=== PATIENT | male | born 1940 ===

== ENCOUNTER 2023-02-06 15:57 | Inpatient (IN) | payer OTHER, BC ==
--- OUTSIDE RECORDS SUMMARY | 2023-02-06 16:13 | XMS REPORT | Continuity of Care Document ---
:[address] [facility] t Address [address] [place] [address]. [address] [place] [address] Care Team Providers Name Role Phone [id number] Primary Care Physician Unavailable Wilmer HOOK, Candis Attending Clinician Unavailable Jie CALHOUN, Ya Thomason Attending Clinician [phone] [email or web address] Attending Clinician Unavailable Kamron Cormier MA Attending Clinician Unavailable Kurt Polanco Attending Clinician Mariela Abbott Attending Clinician Unavailable Aquiles CALHOUN, Carmen Kent Attending Clinician Elie DODD, Tanisha Attending Clinician Unavailable Clotilde WINN MD, Que Aj Attending Clinician Brody [facility], Ralph Attending Clinician Unavailable Saint Jd CALHOUN, Gaetano Graham Attending Clinician Juan CALHOUN, Jakub Sosa Attending Clinician Mario Alberto CALHOUN, Jeannette Attending Clinician Roshni CALHOUN, Jared Cruz Attending Clinician Ayana CALHOUN, Sonja Monsivais Attending Clinician [phone] Aliyah CALHOUN, Tara Eldridge Attending Clinician [phone] Suzan CALHOUN, Brandi Attending Clinician Lucero CALHOUN, Aquiles Hernandez Attending Clinician [phone] Jimy DODD, Kat Attending Clinician Unavailable Yoni CALHOUN, Tim Attending Clinician Amada CALHOUN, Luz Marina Attending Clinician Andreas Zavala MD Attending Clinician Arielle Bingham Attending Clinician Unavailable Simón Cisneros Attending Clinician Unavailable Ayush CALHOUN, Ratna Romero Attending Clinician [phone] Malick Patel MD Attending Clinician JAI CARROLL Attending Clinician Unavailable GENOVEVA YEH Attending Clinician Unavailable MD JAI CARROLL Attending Clinician Unavailable _[facility]_I Admitting Clinician Unavailable JEANNETTE LLANES Admitting Clinician Unavailable ANDREAS ZAVALA Admitting Clinician Unavailable MALICK PATEL Admitting Clinician Unavailable JAI CARROLL Admitting Clinician Unavailable MD JAI CARROLL Admitting Clinician Unavailable Payers Payer Name Policy Type Policy Number Effective Date Expiration Date S ource [place] [id number] 2009 00:00:00 MEDICARE PART A [id number] 2006 AND B 00:00:00 [place]: [id number] 2006 NOVSnapciousS Personalis 00:00:00 [place] [id number] [place] (MEDICARE 00:00:00 SUPPLEMENT) Problems Condition Condition Condition Status Onset Resolution Last Treating Co mments Source Name Details Category Date Date Treatment Clinician Date 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 00:00: Hospit a on right on right 00 l Lesion of Lesion of Disease Active Met [facility]odi right right 02-05 ulnar ulnar 00:00: Hospita nerve nerve 00 l Elevated Elevated Disease Active Metho di alkaline alkaline 2 phosphatas phosphatas 00:00: Ho spita e level e level 00 l 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 anemia 08-27 00:00: Hospita 00 l Acute on Acute on Disease Active Metho di chronic chronic 2-20 st systolic systolic 00:00: Hospit a congestive congestive 00 l heart heart failure failure Neuropathi Neuropathi Disease Active 2021-07 M ethodi c ulcer of c ulcer of 0-26 st left heel left heel 00:00: [facility] 00 l Neuropathi Neuropathi Disease Active 2021-07 M ethodi c ulcer of c ulcer of 0-26 st right right 00:00: Hospita heel, with heel, with 00 l unspecifie unspecifie d severity d severity A-fib A-fib Disease Active 2021-07 Methodi 0-10 st 00:00: Hospita 00 l Physical Physical Disease Active 2021-07 Metho di deconditio deconditio 0-10 st carey carye 00:00: Hospita 00 l Diabetic Diabetic Disease Active 2021-07 Metho di foot foot 0-09 st infection infection 00:00: [facility] 00 l Scrotal Scrotal Disease Active Methodi swelling swelling 911 st 00:00: Hospita 00 l Angina of Angina of Disease Active Met hodi effort effort 606 st 00:00: Hospita 00 l Elevated Elevated Disease Active Metho di LFTs LFTs 08-06 st 00:00: Hospita 00 l B12 B12 Disease Active Methodi deficiency deficiency 08-06 st 00:00: Hospita 00 l Generalize Generalize Disease Active M ethodi d d 6 st abdominal abdominal 00:00: [facility] pain pain 00 l Cortical Cortical Disease Active Overview: Oh anum age-relate age-relate [address] d cataract d cataract 00:00: g of this Hospita of both of both 00 note l eyes eyes might be different from the original. 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 00:00: Hospit a spine spine 00 l without without myelopathy myelopathy Chronic Chronic Disease Active Methodi inflammato inflammato 2 ry ry 00:00: Hospita demyelinat demyelinat 00 l ing ing polyneurit polyneurit is is Diabetic Diabetic Disease Active Metho di polyneurop polyneurop 2 athy athy 00:00: Hospita 00 l Peripheral Peripheral Disease Active 0 M ethodi neuropathy neuropathy 08-18 00:00: Hospita 00 l 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 08-18 e e 00:00: Hospita polyneurop polyneurop 00 l athy athy Idiopathic 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 2 osteoarthr osteoarthr 00:00: Ho spita opathy opathy 00 l Low back Low back Disease Active Metho di pain pain 08-18 00:00: Hospita 00 l 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 00:00: Hospit a with with 00 l neurologic neurologic al al manifestat manifestat ions ions Osteoarthr Osteoarthr Disease Active M ethodi itis of itis of 2 knee knee 00:00: Hospita 00 l Neuropathy Neuropathy Disease Active M ethodi , toxic , toxic 08-18 00:00: Hospita 00 l 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 Uses a CPAP Allergies, Adverse Reactions, Alerts Allergy Allergy Status Severity Reaction(s) Onset Inactive Treating Comm ents Source Name Type Date Date Clinician Latex Propensi Active Other (See Breaks Meth beata ty to Comments) 6- out st adverse 00:00: Hospita reaction 00 l s to drug NEOMYCIN DRUG Active Other MD NguyenBACITRA 3-25 Anderso CNZN-KAE 00:00: n YMYXNB 00 Neomycin Propensi Active Rash Method i -Bacitra ty to 08-18 st evan-Poly adverse 00:00: Hospita myxin reaction 00 l s to drug NEOMYCIN DRUG Active Med Other MD NguyenBACITRA 2-12 Anderso EVAN-POLY 00:00: n MYXIN 00 Family History Family Member Diagnosis Comments Start Date Stop Date Source Natural father Alcohol abuse [facility] Natural father Cancer [facility] Natural father Lung cancer [facility] Natural mother Cancer [facility] Natural mother Diabetes [facility] mother Heart failure [facility] Social History Social Habit Start Date Stop Date Quantity Comments Source Gender identity 2018-11-01 Identifies as Method ist 19:52:04 male gender [facility] (finding) Sexual orientation [facility] History of tobacco Current smoker [facility] use [facility] History of Social 2023-01-30 2023-01-[address] function 00:00:00 00:00:00 Hospital Alcohol intake 2023-01-30 2023-01-30 Current drinker [facility] dist 00:00:00 00:00:00 of alcohol Hospital (finding) Tobacco Comment 2022-04-25 2022-04-25 off/on [facility] 00:00:00 00:00:00 Hospital Cigarettes smoked 2022-04-25 2022-04-[address] current (pack per 00:00:00 00:00:00 Hospita l day) - Reported Cigarette 2022-04-25 2022-04-25 [facility] pack-years 00:00:00 00:00:00 Hospital Tobacco use and 2022-04-25 2022-04-25 Smokeless tobacco [facility] exposure 00:00:00 00:00:00 non-user Hospital Alcohol Comment 2016-05-27 2016-05-27 very little Methodis t 00:00:00 00:00:00 Hospital Sex Ass[birth year] At [birth year] M [facility] 00:00:00 00:00:00 Hospital Smoking Status Start Date Stop Date Source Ex-smoker 2022-04-25 00:00:00 2022-04-25 00:00:00 [facility] Hospital Medications Ordered Filled Start Stop Current Ordering Indication Dosage Frequency Signature Comments Components Source Medication Medication Date Date Medication? Clinician (SIG) Name Name clopidogreL Yes 75mg QD Take 1 Meth beata (PLAVIX) 75 5-09 tablet (75 st mg tablet 15:03: mg total) Hos mylene 01 by mouth l daily. aspirin Yes 81mg QD Take 1 Methodi (ECOTRIN) 5-09 tablet (81 st 81 MG 15:03: mg total) Hospita enteric 01 by mouth l coated daily. tablet loratadine- 2022- No 1{tbl} Q24H Take 1 M ethodi pseudoepHED 10-[address] rine 11:31: 00:00 mouth Hospita (Claritin-D 58 :00 daily as l 12 Hour) needed. 5-120 mg tablet extended release 12 hr cyanocobala Yes 1000ug Q30D Inject 1 Methodi min 1,000 4-21 mL (1,000 st mcg/mL 00:00: mcg total) Hospi ta injection 00 into the l shoulder, thigh, or buttocks every 30 (thirty) days. fluorouraci 2022- No Q.5D Apply 1 Me thodi L (EFUDEX) 09-[address] 5 % cream 00:00: 00:00 n. Hospita 00 :00 topically l 2 (two) times a day. For 2 weeks - do not use on tumor expected redness & irritation ciprofloxac 2022- No 500mg Q.5D Take 1 Me thodi in (CIPRO) 09-[address] 500 MG 00:00: 00:00 (500 mg Hospita tablet 00 :00 total) by l mouth 2 (two) times a day with meals. metFORMIN 2023- No [id number] 500mg QD Take 1 Methodi XR 09-09-[address] (GLUCOPHAGE 00:00: 05:59 (500 mg Ho spita -XR) 500 mg 00 :00 total) by l 24 hr mouth tablet daily with breakfast. empaglifloz 2023- No [id number] 25mg QD Take 1 Methodi in 25 mg 09-09 tablet (25 st tablet 00:00: 05:59 mg total) Hospi ta 00 :00 by mouth l daily. metFORMIN 2022- No 1000mg QD Take 1 Met hodi (GLUCOPHAGE 09-[address] ) 1,000 mg 15:00: 00:00 (1,000 mg H ospita tablet 26 :00 total) by l mouth daily with breakfast. metFORMIN 2022- No [id number] 1000mg QD Take 1 Methodi (GLUCOPHAGE 09-[address] ) 1,000 mg 00:00: 00:00 (1,000 mg H ospita tablet 00 :00 total) by l mouth daily with breakfast for 180 days. spironolact 2023- No 50mg QD Take 1 Met hodi one 09-04 tablet (50 st (ALDACTONE) 00:00: 05:59 mg total) Hospita 50 MG 00 :00 by mouth l tablet daily. valsartan 2023- No 160mg QD Take 1 Meth beata (DIOVAN) 09-[address] 160 MG 00:00: 05:59 (160 mg Hospita tablet 00 :00 total) by l mouth daily. levoFLOXaci 2022- No 500mg QD Take 1 Me thodi n 09-[address] (Levaquin) 00:00: 05:59 (500 mg Hos mylene 500 MG 00 :00 total) by l tablet mouth daily for 3 days. torsemide 2023- No 20mg Q.5D Take 1 Metho di (DEMADEX) 09-03 tablet (20 st 20 MG 00:00: 05:59 mg total) Hospit a tablet 00 :00 by mouth 2 l (two) times a day. sildenafil, 2023- No 20mg Q.5D Take 1 Met hodi for 09-03 tablet (20 st pulmonary 00:00: 05:59 mg total) Ho spita hypertensio 00 :00 by mouth 2 l n, (two) (REVATIO) times a 20 mg day. tablet metoprolol 2023- No 25mg Q.5D Take 1 Meth beata succinate 09-03 tablet (25 st XL 00:00: 05:59 mg total) Hospita (TOPROL-XL) 00 :00 by mouth 2 l 25 mg 24 hr (two) tablet times a day. nystatin 2022- No Q.5D Apply Methodi (MYCOSTATIN 09-[address] ) 100,000 00:00: 00:00 2 (two) [facility]osp [facility] unit/gram 00 :00 times a l powder day. loratadine 2022- No 10mg QD Take 10 mg Methodi (CLARITIN) 08-[address] 10 mg 11:34: 00:00 daily. Hospita tablet 22 :00 l multivitami 2022- No 1{capsu QD Take 1 Methodi n capsule 08-29 le} capsule by st 11:34: 00:00 mouth Hospita 11 :00 daily. l rosuvastati Yes Method i n (CRESTOR) 08-19 st 10 mg 00:00: Hospita tablet 00 l gentamicin 2022- No Q.5D Apply 1 Met hodi (GARAMYCIN) 08-19 applicatio s t 0.1 % 00:00: 00:00 n. Hospita ointment 00 :00 topically l 2 (two) times a day. Mix with Naftin - apply to affected area on the foot twice daily x 2 weeks ketoconazol Yes QD Apply 1 Met hodi e (NIZORAL) 07-[address] 2 % cream 00:00: n Hospita 00 topically l daily. Apply to left foot terbinafine 2022- No 250mg QD Take 1 Me thodi HCL 07-[address] (LamiSIL) 00:00: 00:00 (250 mg [facility] 250 mg 00 :00 total) by l tablet mouth daily. mupirocin 2022- No QD Apply 1 Meth beata (BACTROBAN) 07-25 applicatio s t 2 % 00:00: 00:00 n Hospita ointment 00 :00 topically l daily. Left foot levoFLOXaci 2022- No 750mg QD Take 1.5 Methodi n 07-[address] (Levaquin) 00:00: 00:00 (750 mg Hos mylene 500 MG 00 :00 total) by l tablet mouth daily. clindamycin 2022- No 150mg Q.[id number] Take 1 Methodi (Cleocin 07-17 [id number] capsule s t HCL) 150 MG 00:00: 05:59 3D (150 mg Ho spita capsule 00 :00 total) by l mouth 3 (three) times a day for 3 days. metoprolol 2021-07- No Q.5D Take by Met hodi succinate 08-[address] XL 00:00: 00:00 (two) Hospita (TOPROL-XL) 00 :00 times a l 50 mg 24 hr day. tablet tamsulosin 2021-07 Yes .4mg QD Take 1 Metho di (FLOMAX) 0-[address] 0.4 mg 00:00: (0.4 mg Hospita capsule 00 total) by l mouth every evening. furosemide 2021-07- No 40mg Q.5D Take 1 Meth beata (LASIX) 40 0-20 09-03 tablet (40 st mg tablet 00:00: 00:00 mg total) Ho spita 00 :00 by mouth 2 l (two) times a day. doxycycline 2021-07 No 100mg Q.5D Take 1 Me thodi (VIBRAMYCIN 0-15 10-[address] ) 100 MG 18:26: 00:00 (100 mg Hospi ta capsule 02 :00 total) by l mouth 2 (two) times a day. Starting 04/14 for 10 days. sulfamethox 2021-07- No 1{tbl} Q.5D Take 1 M ethodi azole-trime 0-15 10-[address] thoprim 18:26: 00:00 mouth 2 Hospit a (BACTRIM 02 :00 (two) l DS) 800-160 times a mg per day. tablet benzonatate 2021-07- No 200mg Take 2 Me thodi (TESSALON) 0-15 10-[address] 100 MG 18:26: 00:00 (200 mg Hospita capsule 02 :00 total) by l mouth as needed for cough. collagenase 2021-07- No QD Apply Meth beata (SANTYL) 0-15 11-[address] ointment 00:00: 05:59 daily for Hos mylene 00 :00 30 days. l simvastatin 2021-07 No 40mg QD Take 40 mg Methodi (ZOCOR) 40 0-14 10-[address] mg tablet 18:26: 00:00 nightly. Hos mylene 40 :00 l rosuvastati 2021-07 No 10mg QD Take 1 Met hodi n (CRESTOR) 0-14 11-14 tablet (10 s t 10 mg 00:00: 05:59 mg total) Hospit a tablet 00 :00 by mouth l nightly for 30 days. clotrimazol 2021-07 No Q.5D Apply Meth beata e 0-14 11-[address] (LOTRIMIN) 00:00: 05:59 2 (two) Hos mylene 1 % cream 00 :00 times a l day for 30 days. betamethaso 2021-07 No Q.5D Apply Meth beata ne 0-14 11-[address] dipropionat 00:00: 05:59 2 (two) Ho spita e 00 :00 times a l (DIPROLENE) day for 30 0.05 % days. cream benzonatate 2021-07 100mg Q.[id number] Take 1 Methodi (TESSALON) 0-14 - [id number] capsule st 100 MG 00:00: 04:59 3D (100 mg Hospita capsule 00 :00 total) by l mouth 3 (three) times a day as needed for cough for up to 10 days. ciprofloxac 2021-07 No 500mg Q.5D Take 1 Me thodi in (CIPRO) 0-14 10-[address] 500 MG 00:00: 00:00 (500 mg Hospita tablet 00 :00 total) by l mouth 2 (two) times a day for 6 days. sulfamethox 2021-07 No 1{tbl} Q.5D Take 1 M ethodi azole-trime 0-14 10-[address] thoprim 00:00: 04:59 mouth 2 Hospit a (BACTRIM 00 :00 (two) l DS) 800-160 times a mg per day for 6 tablet days. minocycline 2021-07- No 100mg Q12H Take 1 Me thodi (MINOCIN) 0-14 10-[address] 100 MG 00:00: 00:00 (100 mg Hospita capsule 00 :00 total) by l mouth every 12 (twelve) hours for 6 days. metFORMIN 2021- No 1000mg Q.5D Take 1 Met hodi (GLUCOPHAGE 03-27- tablet st ) 1,000 mg 00:00: 00:00 (1,000 mg H ospita tablet 00 :00 total) by l mouth 2 (two) times a day with meals. diclofenac 2021- No 50mg Q.5D Take 1 Meth beata (VOLTAREN) 03-25- tablet (50 st 50 MG EC 00:00: 00:00 mg total) Hos mylene tablet 00 :00 by mouth 2 l (two) times a day. PRN furosemide 2021- No 40mg QD Take 1 Meth beata (LASIX) 40 9-17 10-20 tablet (40 st mg tablet 00:00: 04:59 mg total) Ho spita 00 :00 by mouth l daily for 30 days. metoprolol 2021- No 25mg Q.5D Take 1 Meth beata succinate 9-17 10-20 tablet (25 st XL 00:00: 04:59 mg total) Hospita (TOPROL-XL) 00 :00 by mouth 2 l 25 mg 24 hr (two) tablet times a day for 30 days. spironolact 2021-2021- No 50mg QD Take 1 Met hodi one 9-17 10-20 tablet (50 st (ALDACTONE) 00:00: 04:59 mg total) Hospita 50 MG 00 :00 by mouth l tablet daily for 30 days. tamsulosin 2021- No .4mg QD Take 1 Meth beata (FLOMAX) 9-17 10-[address] 0.4 mg 00:00: 04:59 (0.4 mg Hospita capsule 00 :00 total) by l mouth daily with dinner for 30 days. collagenase QD Apply Meth beata (SANTYL) 03-[address] ointment 00:00: 00:00 daily for Hos mylene 00 :00 30 days. l furosemide No 40mg QD Take 1 Meth beata (Lasix) 40 03-13 tablet (40 st mg tablet 00:00: 00:00 mg total) Ho spita 00 :00 by mouth l daily. potassium No 20meq QD Take 1 Meth beata chloride 03-13 tablet (20 st (K-DUR) 20 00:00: 00:00 mEq total) Hospita MEQ CR 00 :00 by mouth l tablet daily. benzonatate as needed. Methodi (TESSALON) 09-27 st 200 MG 00:00: 00:00 Hospita capsule 00 :00 l NIFEdipine No 60mg QD Take 1 Meth beata ER 07-23 tablet (60 st (PROCARDIA- 00:00: 00:00 mg total) Hospita XL) 60 MG 00 :00 by mouth l 24 hr daily. tablet metoprolol TAKE 1 Meth beata succinate 07-23 TABLET(50 st XL 00:00: 00:00 MG) BY Hospita (TOPROL-XL) 00 :00 MOUTH l 50 mg 24 hr TWICE tablet DAILY cyanocobala 2019-07 INJECT Met hodi min 1,000 2-29 04-21 1,000MCG st mcg/mL 00:00: 00:00 IN THE Hospita injection 00 :00 MUSCLE l EVERY 30 DAYS Immunizations Ordered Immunization Filled Immunization Date Status Commen ts Source Name Name Tdap 2022-04-26 Completed [facility] 00:00:00 [facility] FLUZONE HIGH-DOSE PF 2022-04-19 Completed Meth odist 00:00:00 [facility] PFIZER COVID-19 MRNA 2021-06-19 Completed Meth odist VACCINATION 00:00:00 [facility] FLUZONE HIGH-DOSE PF 2021-04-05 Completed Meth odist 00:00:00 [facility] PFIZER COVID-19 MRNA 2020-08-18 Completed Meth odist VACCINATION 00:00:00 [facility] PFIZER COVID-19 MRNA 2020-07-28 Completed Meth odist VACCINATION 00:00:00 Hospital Zoster Vaccine 2020-06-23 Completed [facility] Recombinant 00:00:00 [facility] Zoster Vaccine 2020-04-21 Completed [facility] Recombinant 00:00:00 [facility] FLUZONE HIGH-DOSE PF 2020-04-17 Completed Meth odist 00:00:00 Hospital FLUZONE HIGH-DOSE PF 2019-04-07 Completed [facility] odist 00:00:00 Hospital Pneumococcal 2018-05-25 Completed [facility] Polysaccharide 00:00:00 Hospital FLUZONE HIGH-DOSE PF 2018-04-20 Completed Meth odist 00:00:00 Hospital FLUZONE HIGH-DOSE PF 2017-04-14 Completed Meth odist 00:00:00 Hospital FLUZONE HIGH-DOSE PF 2016-06-20 Completed Meth odist 00:00:00 Hospital Pneumococcal 2015-09-04 Completed [facility] Conjugate 13-Valent 00:00:00 Hospi hernando FLUZONE HIGH-DOSE PF 2015-05-03 Completed Meth odist 00:00:00 [facility] Influenza Trivalent 2013-05-10 Completed [facility] dist 00:00:00 Hospital Zoster 2011-07-08 Completed [facility] 00:00:00 Hospital Vital Signs Vital Name Observation Time Observation Value Comments Source Body height 2023-01-30 15:54:00 200.7 cm [facility] Body weight 2023-01-30 15:54:00 116 kg [facility] BMI 2023-01-30 15:54:00 28.81 kg/m2 [facility] Systolic blood 2022-11-12 20:00:00 91 mm[Hg] [facility] Hospital pressure Diastolic blood 2022-11-12 20:00:00 56 mm[Hg] [facility] Hospital pressure Heart rate 2022-11-12 20:00:00 53 /min [facility] Respiratory rate 2022-11-12 20:00:00 18 /min Meth odist [facility] Oxygen saturation in 2022-11-12 20:00:00 95 /min [facility] Arterial blood by Pulse oximetry Body temperature 2022-10-25 16:00:00 36.56 Elsy Meth odist [facility] Procedures Procedure Date / Time Performing Clinician Source Performed US ABDOMINAL WITH LIVER 2022-10-15 15:40:00 Carmen Kwan [facility] ELASTOGRAPHY HC DEBRID SUBQ TIS 2022-09-25 20:00[facility] 20SQCM OR< HC DEBRID SUBQ TIS 2022-09-18 19:30:00 Que Pascual [facility] 20SQCM OR< POC GLYCOSYLATED 2022-09-05 20:43[facility] (HGB A1C[facility] POC GLUCOSE 2022-09-03 13:38:00 Sonja Piña [facility] Loi CBC WITH PLATELET AND 2022-09-03 11:40:00 Barakat, [facility] DIFFERENTIAL COMPREHENSIVE METABOLIC 2022-09-03 11:40:00 Barakat, Jaredlove Cruz [facility] PANEL MAGNESIUM LEVEL 2022-09-03 11:40:00 Barakat, Jared [facility] ESTIMATED GFR 2022-09-03 11:40:00 Barakat, Jared [facility] POC GLUCOSE 2022-09-03 03:27:00 Barakat, Jared Anthony [facility] POC GLUCOSE 2022-09-02 23:56:00 Barakat, Jared Anthony [facility] POC GLUCOSE 2022-09-02 18:22:00 Barakat, Jared Anthony [facility] POC GLUCOSE 2022-09-02 13:18:00 Barakat, Jared [facility] CBC WITH PLATELET AND 2022-09-02 10:53:00 [facility]OL[facility] 2022-09-02 10:53:00 Barakat, Jared Anthony [facility] PANEL MAGNESIUM LEVEL 2022-09-02 10:53:00 Barakat, Jared Anthony [facility] ESTIMATED GFR 2022-09-02 10:53:00 Barakat, Jared [facility] POC GLUCOSE 2022-09-01 23:53:00 Barakat, Jared Anthony [facility] POC GLUCOSE 2022-09-01 18:00:00 Barakat, Jared [facility] POC GLUCOSE 2022-09-01 13:38:00 Barakat, Jared [facility] B NATRIURETIC PEPTIDE 2022-09-01 12:50:00 Barakat, [facility] CBC WITH PLATELET AND 2022-09-01 12:50:00 Barakat, [facility] DIFFERENTIAL COMPREHENSIVE METABOLIC 2022-09-01 12:50:00 Barakat, Jared [facility] PANEL ESTIMATED GFR 2022-09-01 12:50:00 Barakat, Jared [facility] MAGNESIUM LEVEL 2022-09-01 12:50:00 Barakat, Jared [facility] POC GLUCOSE 2022-09-01 02:52:00 Barakat, Jared [facility] POC GLUCOSE 2022-09-01 00:10:00 Barakat, Jared [facility] POC GLUCOSE 2022-08-31 18:34:00 Barakat, Jared [facility] POC GLUCOSE 2022-08-31 13:48:00 Barakat, Jared [facility] CBC WITH PLATELET AND 2022-08-31 10:33:00 Barakat, [facility] DIFFERENTIAL COMPREHENSIVE METABOLIC 2022-08-31 10:33:00 Barakat, Jared Cruz [facility] PANEL B NATRIURETIC PEPTIDE 2022-08-31 10:33:00 Barakat, [facility] ESTIMATED GFR 2022-08-31 10:33:00 Barakat, Jared [facility] POC GLUCOSE 2022-08-31 02:40:00 Barakat, Jared [facility] POC GLUCOSE 2022-08-30 18:31:00 Barakat, Jared [facility] POC GLUCOSE 2022-08-30 14:42:00 Barakat, Jared [facility] CBC WITH PLATELET AND 2022-08-30 10:52:00 Barakat, [facility] DIFFERENTIAL COMPREHENSIVE METABOLIC 2022-08-30 10:52:00 Barakat, Jared [facility] PANEL B NATRIURETIC PEPTIDE 2022-08-30 10:52:00 Barakat, [facility] ESTIMATED GFR 2022-08-30 10:52:00 Barakat, Jared [facility] ospital POC GLUCOSE 2022-08-30 03:01:00 Barakat, [facility] ospital POC GLUCOSE 2022-08-29 23:26:00 Barakat, [facility] ospital INFLUENZA ANTIGEN TEST, 2022-08-29 21:37:00 Barakat, Jared [facility] REFLEX NEGATIVE TO RPP RESPIRATORY PATHOGEN 2022-08-29 21:37:00 Barakat, [facility] PANEL WITH COVID-19 RT-PCR URINALYSIS SCREEN AND 2022-08-29 18:07:00 Barakat, [facility] MICROSCOPY, WITH REFLEX TO CULTURE BLOOD CULTURE, AEROBIC & 2022-08-29 18:06:00 [facility] ANAEROBIC URINE CULTURE 2022-08-29 17:48:00 [facility] POC GLUCOSE 2022-08-29 14:39:00 Barakat, [facility] ospital CBC WITH PLATELET AND 2022-08-29 10:17:00 Barakat [facility] DIFFERENTIAL COMPREHENSIVE METABOLIC 2022-08-29 10:17:00 BarakatJared hanna [facility] PANEL B NATRIURETIC PEPTIDE 2022-08-29 10:17:00 [place] [facility] MAGNESIUM LEVEL 2022-08-29 10:17:00 [facility] ESTIMATED GFR 2022-08-29 10:17:00 Barakat, Jared [facility] ospital POC GLUCOSE 2022-08-29 03:38:00 Barakat, [facility] ospital MAGNESIUM LEVEL 2022-08-29 00:03:00 [facility] US DUPLEX VENOUS LOWER 2022-08-28 18:00:[address] [place] [facility] EXTREMITY REFLUX BILATERAL CBC WITH PLATELET AND 2022-08-28 09:34:00 Barakat [facility] DIFFERENTIAL COMPREHENSIVE METABOLIC 2022-08-28 09:34:00 Jared Barakat [facility] PANEL ESTIMATED GFR 2022-08-28 09:34:00 Jared Barakat H ospital POC GLUCOSE 2022-08-27 18:29:00 Jared Barakat H ospital TTE COMPLETE, WO 2022-08-27 17:45:00 Richy Delgado [facility] CONTRAST, W DOPPLER ([id number]) POC GLUCOSE 2022-08-27 14:43:00 Jeannette Llanes spital RESPIRATORY PATHOGEN 2022-08-27 08:09:00 [facility] PANEL WITH COVID-19 RT-PCR TROPONIN T 2022-08-27 08:09:00 [facility] CBC WITH PLATELET AND 2022-08-27 08:09:00 Jeannette Llanes [facility] DIFFERENTIAL PROTHROMBIN TIME WITH INR 2022-08-27 08:09:00 Jeannette Llanes [facility] HEMOGLOBIN A1C 2022-08-27 08:09:00 Jeannette Llanes Ho spital LIPID PANEL 2022-08-27 08:09:00 Jeannette Llanes spital MAGNESIUM LEVEL 2022-08-27 08:09:00 Jeannette Llanes spital THYROID STIMULATING 2022-08-27 08:09:00 Rafatutjan [facility] HORMONE COMPREHENSIVE METABOLIC 2022-08-27 08:09:00 Jeannette Llanes [facility] PANEL ESTIMATED GFR 2022-08-27 08:09:00 Jeannette Llanes spital ECG ED PRELIMINARY 2022-08-27 07:05:51 [facility] INTERPRETATION CONSULT TO WOUND AND 2022-08-27 06:07:17 [facility] CONTINENCE NURSE COVID-19, INFLUENZA A&B, 2022-08-27 04:52:00 [facility] QUAL[facility] RT-PCR TROPONIN T 2022-08-27 04:52:00 [facility] CBC WITH PLATELET AND 2022-08-26 23:09:00 [facility] DIFFERENTIAL COMPREHENSIVE METABOLIC 2022-08-26 23:09:00 [facility] PANEL TROPONIN T 2022-08-26 23:09:00 [facility] B NATRIURETIC PEPTIDE 2022-08-26 23:09:00 [facility] PARTIAL THROMBOPLASTIN 2022-08-26 23:09:00 [facility] TIME (PTT) PROTHROMBIN TIME WITH INR 2022-08-26 23:09:00 [facility] ESTIMATED GFR 2022-08-26 23:09:00 Rehrer, [facility] XR CHEST 1 VW PORTABLE 2022-08-26 22:43:00 [facility] ECG 12-LEAD 2022-08-26 22:24:35 [facility] HC DEBRID SUBQ TIS 2022-07-31 21:00:00 [facility] 20SQCM OR< HC DEBRID SUBQ TIS 2022-07-17 20:30:00 [facility] 20SQCM OR< HC DEBRID SUBQ TIS 2022-07-10 21:00:00 [facility] 20SQCM OR< HC DEBRID SELECT 2022-07-10 21:00:00 [facility] 20SQCM OR < HC DEBRID SUBQ TIS 2022-06-26 20:30:00 [facility] 20SQCM OR< HC DEBRID SELECT 2022-06-12 20:30:00 [facility] 20SQCM OR < CBC WITH PLATELET AND 2022-05-28 17:07:00 [facility] DIFFERENTIAL COMPREHENSIVE METABOLIC 2022-05-28 17:07:00 Carmen Kwan [facility] PANEL BILIRUBIN DIRECT 2022-05-28 17:07:00 Carmen K[facility] HC DEBRID SUBQ TIS 1ST 2022-05-22 20:30:00 [facility] 20SQCM OR< SURGICAL PATHOLOGY 2022-05-22 17:50:00 [facility] REQUEST HC DEBRID SUBQ TIS 2022-05-15 20:30:00 [facility] 20SQCM OR< HC DEBRID SUB TISS EA 2022-05-15 20:30:00 [facility] ADDL 20SQCM PV PHYSIOLOGIC ARTERIAL 2022-05-07 16:32:40 [facility] LOWER EXTREMITY COMPLETE HC DEBRID SUBQ TIS 2022-05-01 20:15:00 [facility] 20SQCM OR< HC DEBRID SUB TISS EA 2022-05-01 20:15:00 [facility] ADDL 20SQCM HC DEBRID SELECT 2022-04-24 19:00:00 [facility] 20SQCM OR < HC DEBRID SELECT ADDL 2022-04-24 19:00:00 [facility] 20SQCM POC GLUCOSE 2022-04-19 16:33:00 Aquiles Barker POC GLUCOSE 2022-04-19 12:25:00 Aquiles Barker francisco javier Hernandez CBC WITH PLATELET AND 2022-04-19 08:51:00 Lucero [facility] DIFFERENTIAL David BASIC METABOLIC PANEL 2022-04-19 08:51:00 Lucero, [facility] David ESTIMATED GFR 2022-04-19 08:51:00 Aquiles Barker POC GLUCOSE 2022-04-19 01:45:00 Aquiles Barker POC GLUCOSE 2022-04-18 23:29:00 Aquiles Barker POC GLUCOSE 2022-04-18 22:39:00 Aquiles Barker DURABLE MEDICAL EQUIPMENT 2022-04-18 17:23:50 [facility] POC [facility]SE 2022-04-18 17:06:[address] [facility] POC GLUCOSE 2022-04-18 14:12:[address] [facility] MRI ANKLE WO CONTRAST 2022-04-18 12:53:00 Nadja [facility] RIGHT CBC WITH PLATELET AND 2022-04-18 09:58:00 Aquiles Barker [facility] BASIC METABOLIC PANEL 2022-04-18 09:58:[address] [facility] ESTIMATED GFR 2022-04-18 09:58:[address] [facility] POC GLUCOSE 2022-04-18 01:57:[address] [facility] US DUPLEX VENOUS LOWER 2022-04-17 22:55:00 Nadja [facility] EXTREMITY RIGHT VANCOMYCIN LEVEL, TROUGH 2022-04-17 21:41:00 Aquiles Barker [facility] POC GLUCOSE 2022-04-17 21:40:[address] [facility] POC GLUCOSE 2022-04-17 16:57:[address] [facility] POC GLUCOSE 2022-04-17 12:27:[address] [facility] HEMOGLOBIN A1C 2022-04-17 11:06:[address] [facility] CBC WITH PLATELET AND 2022-04-17 11:06:00 Aquiles Barker [facility] DIFFERENTIAL [place] BASIC METABOLIC PANEL 2022-04-17 11:06:[address] [facility] C-REACTIVE PROTEIN 2022-04-17 11:06:[address] [facility] SEDIMENTATION RATE 2022-04-17 11:06:[address] [facility] ESTIMATED GFR 2022-04-17 11:06:[address] [facility] POC GLUCOSE 2022-04-17 01:45:[address] [facility] POC GLUCOSE 2022-04-16 20:29:00 Aquiles Barker Jenaro mcintyre David POC GLUCOSE 2022-04-16 17:04:00 Lucero Aquiles [facility] francisco javier Hernandez CBC HEMOGRAM 2022-04-16 14:32:00 Aquiles Barker Annette Hernandez BASIC METABOLIC PANEL 2022-04-16 14:32:00 LuceroAquiles [facility] David ESTIMATED GFR 2022-04-16 14:32:00 [facility] 2022-04-16 13:32:00 Lucero, Aquiles [facility] POC GLU[facility]SE 2022-04-16 01:51:00 Lucero, Aquiles [facility] POC GLUCOSE 2022-04-15 16:57:00 Lucero, Aquiles [facility] BAS[facility] METABOLIC PANEL 2022-04-15 15:08:00 Lucero Aquiles [facility] David ESTIMATED GFR 2022-04-15 15:08:00 Aquiles [facility] POC GLUCOSE 2022-04-15 12:42:00 Lucero, Aquiles [facility] HEMOGLOBIN A1C 2022-04-15 10:18:00 Jeannette Llanes spital TROPONIN T 2022-04-15 02:08:00 Luz Marina Ybarra spital ECG ED PRELIMINARY 2022-04-14 23:32:45 [facility]-19 QUALITATIVE 2022-04-14 23:30:00 [facility] TROPONIN T 2022-04-14 23:30:00 Luz Marina Ybarra spital POC GLUCOSE 2022-04-14 23:24:00 Andreas Zavala spital XR FOOT 3+ VW RIGHT 2022-04-14 21:38:51 Luz Marina Ybarra [facility] ECG 12-LEAD 2022-04-14 19:34:43 Luz Marina Ybarra Ho spital COMPREHENSIVE METABOLIC 2022-04-14 19:29:00 Luz Marina Ybarra [facility] PANEL TROPONIN T 2022-04-14 19:29:00 Ybarra, [facility] B NATRIURETIC PEPTIDE 2022-04-14 19:29:00 [facility] PARTIAL THROMBOPLASTIN 2022-04-14 19:29:00 [facility] TIME (PTT) PROTHROMBIN TIME WITH INR 2022-04-14 19:29:00 [facility] ESTIMATED GFR 2022-04-14 19:29:00 Ybarra, [facility] spital SEDIMENTATION RATE 2022-04-14 19:29:00 [facility] C-REACTIVE PROTEIN 2022-04-14 19:29:00 [facility] BLOOD CULTURE, AEROBIC & 2022-04-14 19:29:00 [facility] ANAEROBIC CBC WITH PLATELET AND 2022-04-14 19:29:00 [facility] DIFFERENTIAL POC GLUCOSE 2022-03-23 17:08:00 Malick Patelist H ospital POC GLUCOSE 2022-03-23 12:51:00 Malick Patelist H ospital POC GLUCOSE 2022-03-22 23:12:00 Malick Patelist H ospital POC GLUCOSE 2022-03-22 16:42:00 Malick Patel [facility] POC GLUCOSE 2022-03-22 13:03:00 Malick Patel H ospital CBC HEMOGRAM 2022-03-22 09:56:00 Malick Patel H ospital BASIC METABOLIC PANEL 2022-03-22 09:56:00 [facility] ESTIMATED GFR 2022-03-22 09:56:00 Malick Patel H ospital POC GLUCOSE 2022-03-22 02:00:00 Malick Patel H ospital POC GLUCOSE 2022-03-21 21:30:00 Malick Patel H ospital POC GLUCOSE 2022-03-21 17:00:00 Malick Patel [facility] POC GLUCOSE 2022-03-21 12:54:00 Malick Patel [facility] CBC HEMOGRAM 2022-03-21 09:48:00 [facility] Tenriism H ospital BASIC METABOLIC PANEL 2022-03-21 09:48:00 [facility] B NATRIURETIC PEPTIDE 2022-03-21 09:48[facility]22-03-21 09:48:00 Malick Patel [facility] POC GLUCOSE 2022-03-21 02:53:00 [facility] H ospital POC GLUCOSE 2022-03-20 22:13:00 [facility] ospital POC GLUCOSE 2022-03-20 16:21:00 [facility] ospital POC GLUCOSE 2022-03-20 13:04:00 [facility] H ospital CBC HEMOGRAM 2022-03-20 10:08:00 Liu [facility] ospital BASIC METABOLIC PANEL 2022-03-20 10:08:00 [facility] ESTIMATED GFR 2022-03-20 10:08:00 [facility] Tenriism H ospital POC GLUCOSE 2022-03-20 01:42:00 [facility] H ospital POC GLUCOSE 2022-03-19 23:02:00 Liu [facility] ospital POC GLUCOSE 2022-03-19 18:13:00 [facility] Ten[facility] H ospital CT ANGIOGRAM PE CHEST 2022-03-19 17:59:54 [facility] POC GLUCOSE 2022-03-19 13:54:00 [facility] H ospital ZCOVID-19 ANTI-SPIKE IGG 2022-03-19 08:57:00 Carmen [facility] ANTIBODY TITER Juan B NATRIURETIC PEPTIDE 2022-03-19 08:57:00 [facility] ZZCOVID-19 SEROLOGY 2022-03-19 08:57:00 [facility] Juan CBC HEMOGRAM 2022-03-19 08:57:00 Malick Patel H ospital COMPREHENSIVE METABOLIC 2022-03-19 08:57:00 Malick Patel [facility] PANEL ESTIMATED GFR 2022-03-19 08:57:00 Malick Patel [facility] ESTIMATED GFR 2022-03-19 08:48:00 Malick Patel H ospital POC GLUCOSE 2022-03-19 02:39:00 Malick Patel [facility] POC GLUCOSE 2022-03-18 22:34:00 Malick Patel H ospital US SCROTAL 2022-03-18 19:25:00 Malick Patel H ospital POC GLUCOSE 2022-03-18 17:26:00 Malick Patel H ospital POC GLUCOSE 2022-03-18 14:18:00 Malick Patel H ospital TTE COMPLETE, W CONTRAST, 2022-03-18 13:00:00 Malick Patel [facility] W DOPPLER ([id number]) TROPONIN T 2022-03-18 09:17:00 [facility] HEM[facility] 2022-03-18 09:17:00 Malick Patel [facility] BASIC METABOLIC PANEL 2022-03-18 09:17:00 Malick Patel [facility] ESTIMATED GFR 2022-03-18 09:17:00 Malick Patel H ospital US DUPLEX VENOUS LOWER 2022-03-18 01:56:00 [facility] EXTREMITY BILATERAL POC GLUCOSE 2022-03-18 01:44:00 Malick Patel ospital TROPONIN T 2022-03-17 23:15:00 [facility] URINE CULTURE 2022-03-17 20:45:00 Ratna Peacock nikia Romero URINALYSIS SCREEN AND 2022-03-17 20:45:00 Ratna Peacock [facility] MICROSCOPY, WITH REFLEX Nick TO CULTURE ECG ED PRELIMINARY 2022-03-17 20:39:04 Epifanio Lopez [facility] INTERPRETATION COVID-19 QUALITATIVE 2022-03-17 20:14:00 Epifanio Lopez [facility] RT-PCR CBC WITH PLATELET AND 2022-03-17 20:14:00 [facility] DIFFERENTIAL COMPREHENSIVE METABOLIC 2022-03-17 20:14:00 [facility] PANEL MAGNESIUM LEVEL 2022-03-17 20:14:00 [facility] TROPONIN T 2022-03-17 20:14:00 [facility] B NATRIURETIC PEPTIDE 2022-03-17 20:14:00 [facility] ESTIMATED GFR 2022-03-17 20:14:00 [facility] XR CHEST 1 VW PORTABLE 2022-03-17 19:31:55 [facility] 12-LEAD 2022-03-17 18:22:19 Ratna Peacock [facility] nikia Romero Plan of Care Planned Activity Planned Date Details Comments Source Future Scheduled Test 2023-02-06 DIABETIC FOOT EXAM [facility] 12:28:32 [code = DIABETIC FOOT EXAM] Future Scheduled Test 2023-02-06 HEPATITIS B [facility] 12:28:32 VACCINES (1 of 3 - Risk 3-dose series) [code = HEPATITIS B VACCINES (1 of 3 - Risk 3-dose series)] Future Scheduled Test 2023-02-06 DIABETES: RETINAL [facility] 12:28:32 EYE EXAM [code = DIABETES: RETINAL EYE EXAM] Future Scheduled Test 2023-02-06 COVID-19 VACCINE (4 [facility] 12:28:32 - Pfizer series) [code = COVID-19 VACCINE (4 - Pfizer series)] Future Scheduled Test 2023-02-06 INFLUENZA VACCINE [facility] 12:28:32 [code = INFLUENZA VACCINE] Future Appointment 2023-02-14 Ya Ceron MD, [facility] 10:35:[address] [place] [address]; Suite [facility], [place] [address] Future Appointment 2023-02-14 Ya Ceron MD, [facility] 10:35:[address] [place] [address]; Suite [facility], [place] [id number] Procedure 2023-02-14 DECOMPRESSION, [facility] 15:35:00 ULNAR NERVE Encounters Start End Encounter Admission Attending Care Care Encounter Source Date/Time Date/Time Type Type Clinicians Facility Department ID 2021-08-09 Outpatient MDA DARLINE [id number] 17:58:01 Anderso n 2023-02-05 2023-02-05 Orders Wilmer 1.2.840.1 [id number] Methodi 00:00:00 00:00:00 Only Candis [address]67.1.[address] 3.430.2.7 Hospit a .3.649264 l .8 2023-01-30 2023-01-30 Office Dawit Ceron.2.840.1 [id number] [id number] Methodi 11:00:00 12:39:15 [place] [address].[address] Katelin 3.430.2.7 Hospit a .3.572382 l .8 2023-01-30 2023-01-30 Outpatient GC_TNC_Cher PRIV PRIV [id number] [facility] 00:00:00 00:00:00 ches_I [id number] Medica l 2023-01-30 2023-01-30 Outpatient JIE [facility] [id number] Kemmerer 00:00:00 00:00:[address] 2023-01-30 2023-01-30 Outpatient JIE [facility] [id number] Kemmerer 00:00:00 00:00:[address] YA [address] 2023-01-30 2023-01-30 Shawn Guillen 1.2.840.1 [id number] 2099 [id number] Methodi 00:00:00 00:00:00 Only Candis 54455.1.[address] 3.430.2.7 Hospit a .3.391737 l .8 2023-01-06 2023-01-06 Telephone Dawit Cormier.2.840.1 [id number] Methodi 00:00:00 00:00:[address] 3.430.2.7 Hospit a .3.744156 l .8 2022-12-16 2022-12-16 Telephone Lilo, 1.2.840.1 [id number] 2 [id number] Methodi 00:00:00 00:00:[address] Shlomo 3.430.2.7 Hospit a .3.584884 l .8 2022-12-13 2022-12-13 Patient Scar, 1.2.840.1 [id number] 2100 [id number] Methodi 00:00:00 00:00:00 Outreach Mariela 11907.1.[address] 3.430.2.7 Hospit a .3.373671 l .8 2022-12-12 2022-12-12 Travel 1.2.840.1 1.2.432.590 3497 [id number] Methodi 00:00:00 00:00:[address] 3.430.2.7 0.2.7.3.698 Ho spita .3.167775 084.8 l .8 2022-11-29 2022-11-29 Patient Scar, 1.2.840.1 [id number] [id number] Methodi 00:00:00 00:00:00 Outreach Mariela 19853.1.[address] 3.430.2.7 Hospit a .3.660142 l .8 2022-11-25 2022-11-25 Telephone Lilo, 1.2.840.1 [id number] 2 [id number] Methodi 00:00:00 00:00:[address] Shlomo 3.430.2.7 Hospit a .3.765082 l .8 2022-11-19 2022-11-19 Telephone Casa, 1.2.840.1 [id number] [id number] Methodi 00:00:00 00:00:[address] 3.430.2.7 Hospit a .3.429135 l .8 2022-11-13 2022-11-13 Patient Scar, 1.2.840.1 [id number] 2100 [id number] Methodi 00:00:00 00:00:00 Outreach Mariela 75804.1.[address] 3.430.2.7 Hospit a .3.340915 l .8 2022-11-12 2022-11-12 Office Aquiles, 1.2.840.1 [id number] 6859 Methodi 15:00:00 15:37:14 Visit Carmen Kent 49632.1.[address] 3.430.2.7 Hospit a .3.096643 l .8 2022-11-12 2022-11-12 [facility] [id number] [place] 00:00:00 00:00:[address]MEN [address] 2022-11-12 2022-11-12 Travel 1.2.840.1 1.2.099.655 [id number] Methodi 00:00:00 00:00:[address] 3.430.2.7 0.2.7.3.698 Ho spita .3.960601 084.8 l .8 2022-10-28 2022-10-28 Patient Scar, 1.2.840.1 [id number] 2100 [id number] Methodi 00:00:00 00:00:00 Outreach Mariela 95853.1.[address] 3.430.2.7 Hospit a .3.216984 l .8 2022-10-28 2022-10-28 Patient Scar, 1.2.840.1 [id number] 2100 [id number] Methodi 00:00:00 00:00:00 Outreach Mariela [address]751.1.[address] 3.430.2.7 Hospit a .3.162724 l .8 2022-10-25 2022-10-25 Office Lilo, 1.2.840.1 [id number] [id number] Methodi 11:30:00 11:46:28 Visit Kurt 68939.1.[address] Shlomo 3.430.2.7 Hospit a .3.306764 l .8 2022-10-25 2022-10-25 [facility] [id number] Kemmerer 00:00:00 00:00:[address] DEEPAM [address] 2022-10-23 2022-10-23 Telephone Casa, 1.2.840.1 [id number] Methodi 00:00:00 00:00:[address] 3.430.2.7 Hospit a .3.629310 l .8 2022-10-17 2022-10-17 Telephone Elie, 1.2.840.1 [id number] 2099 [id number] Methodi 00:00:00 00:00:[address] 3.430.2.7 Hospit a .3.360395 l .8 2022-10-15 2022-10-15 Hospital Aquiles, 1.2.840.1 [id number] Methodi 09:30:00 23:59:00 Encounter Carmen Kent 72032.1.[address] 3.430.2.7 Hospit a .3.402358 l .8 2022-10-15 2022-10-15 [facility] [id number] [address] [place] [address] 00:00:00 00:00:[address]MEN [address] 2022-10-15 2022-10-15 Travel 1.2.840.1 1.2.300.702 5494 [id number] Methodi 00:00:00 00:00:[address] 3.430.2.7 0.2.7.3.698 spita .3.789682 084.8 l .8 2022-10-08 2022-10-08 Patient Scar, 1.2.840.1 [id number] 2100 [id number] Methodi 00:00:00 00:00:00 Outreach Mariela 44024.1.[address] 3.430.2.7 Hospit a .3.599264 l .8 2022-10-04 2022-10-04 Patient Scar, 1.2.840.1 [id number] 2100 [id number] Methodi 00:00:00 00:00:00 Outreach Mariela 13738.1.[address] 3.430.2.7 Hospit a .3.197734 l .8 2022-10-02 2022-10-02 Office Lepow, 1.2.840.1 [id number] 9306 Methodi 15:15:00 16:28:20 [place] [address]21.1.[address] 3.430.2.7 Hospit a .3.232957 l .8 2022-10-02 2022-10-02 Outpatient [facility] [id number] Kemmerer 00:00:00 00:00:[address] 2022-09-25 2022-09-25 Office Lepow, 1.2.840.1 [id number] Methodi 15:00:00 16:16:14 Visit Que Dee50.1.[address] 3.430.2.7 Hospit a .3.442661 l .8 2022-09-25 2022-09-25 Outpatient [facility] [id number] Kemmerer 00:00:00 00:00:00 QUE [address] 2022-09-19 2022-09-19 Patient Scar, 1.2.840.1 [id number] 2100 [id number] Methodi 00:00:00 00:00:00 Outreach Mariela 19219.1.[address] 3.430.2.7 Hospit a .3.123244 l .8 2022-09-18 2022-09-18 Office Lepow, 1.2.840.1 [id number] 9787 Methodi 14:30:00 15:17:10 Visit Que Dee50.1.[address] 3.430.2.7 Hospit a .3.967064 l .8 2022-09-18 2022-09-18 Outpatient [facility] [id number] [address] [place] [address] 00:00:00 00:00:00 QUE [address] 2022-09-17 2022-09-17 Patient Brody, 1.2.840.1 [id number] Methodi 00:00:00 00:00:00 Outreach Ralph 17932.1.[address] 3.430.2.7 Hospit a .3.568732 l .8 2022-09-12 2022-09-12 Patient Scar, 1.2.840.1 [id number] 2099 [id number] Methodi 00:00:00 00:00:00 Outreach Mariela 15431.1.[address] 3.430.2.7 Hospit a .3.636676 l .8 2022-09-09 2022-09-09 Orders Saint 1.2.840.1 [id number] Methodi 00:00:00 00:00:00 Only Jd, 46839.1.[address] Gaetano B. 3.430.2.7 Hospi ta .3.382766 l .8 2022-09-06 2022-09-06 Patient Scar, 1.2.840.1 [id number] 2099 [id number] Methodi 00:00:00 00:00:00 Outreach [facility] [address]52.1.[address] 3.430.2.7 Hospit a .3.495425 l .8 2022-09-05 2022-09-05 Office [facility] 1.2.840.1 [id number] 7820 Methodi 15:00:00 15:04:22 [place] [address].1.[address] Gaetano B. 3.430.2.7 Hospi ta .3.766789 l .8 2022-09-05 2022-09-05 Outpatient [facility] [id number] 099 Kemmerer 00:00:00 00:00:00 JD [address] 2022-09-05 2022-09-05 Travel 1.2.840.1 1.2.255.516 2816 231190 Methodi 00:00:00 00:00:[address] 3.430.2.7 0.2.7.3.698 Ho spita .3.600238 084.8 l .8 2022-09-05 2022-09-05 Patient Scar, 1.2.840.1 [id number] 2099 [id number] Methodi 00:00:00 00:00:00 Outreach Mariela 14454.1.[address] 3.430.2.7 Hospit a .3.566259 l .8 2022-08-26 2022-09-03 [facility] Jakub Martinez 1.2.840.1 [id number] 1036 [id number] Methodi 16:14:00 12:23:00 Encounter Jeannette Llanes 77950.1.[address] Jared Barakat 3.430.2.7 [facility] .3.008041 l .8 2022-08-26 2022-09-03 Inpatient [facility] 012 [id number] 3038 Kemmerer 00:00:00 00:00:00 SONJA [address] 2022-08-27 2022-08-27 Telephone Lilo, 1.2.840.1 [id number] 2 [id number] Methodi 00:00:00 00:00:[address] Shlomo 3.430.2.7 Hospit a .3.485054 l .8 2022-08-26 2022-08-26 Travel 1.2.840.1 1.2.398.384 2650 611969 Methodi 00:00:00 00:00:[address] 3.430.2.7 0.2.7.3.698 Ho spita .3.498687 084.8 l .8 2022-08-23 2022-08-23 Telephone Aliyah, 1.2.840.1 [id number] 2100 081393 Methodi 00:00:00 00:00:[address] [facility] 3.430.2.7 Hospit a .3.296599 l .8 2022-08-21 2022-08-21 Office Clotilde, 1.2.840.1 [id number] 8153 Methodi 15:45:00 16:34:28 [place] [address] 3.430.2.7 Hospit a .3.453672 l .8 2022-08-21 2022-08-21 Outpatient [facility] [id number] 946 Kemmerer 00:00:00 00:00:[address] QUE [address] 2022-08-14 2022-08-14 Office Que Pascual 1.2.840.1 [id number] 04 [id number] Methodi 15:15:00 16:21:24 Visit Brandi Mares 10968.1.[address] 3.430.2.7 Hospit a .3.096755 l .8 2022-08-14 2022-08-14 [facility] [id number] 492 [place]merer 00:00:00 00:00:00 QUE [address] 2022-07-31 2022-07-31 Office Que Pascual 1.2.840.1 [id number] 04 [id number] Methodi 15:00:00 16:01:03 Visit Brandi Mares 12610.1.[address] 3.430.2.7 Hospit a .3.835163 l .8 2022-07-31 2022-07-31 Outpatient MICKIKANIKA [facility] [id number] [place] 00:00:00 00:00:00 QUE [address] 2022-07-19 2022-07-19 Telephone Lilo 1.2.840.1 [id number] Methodi 00:00:00 00:00:[address] Shlomo 3.430.2.7 Hospit a .3.779123 l .8 2022-07-17 2022-07-17 Office Que Pascual 1.2.840.1 [id number] 04 [id number] Methodi 14:30:00 16:12:14 Visit Brandi Mares 26395.1.[address] 3.430.2.7 Hospit a .3.221304 l .8 2022-07-17 2022-07-17 [facility] [id number] [place] 00:00:00 00:00:00 BRANDI [address] 2022-07-10 2022-07-10 Office Que Pascual 1.2.840.1 [id number] Methodi 15:00:00 16:00:45 Visit Brandi Mares 05591.1.[address] 3.430.2.7 Hospit a .3.837073 l .8 2022-07-10 2022-07-10 Outpatient ALEXDELBERT [facility] [id number] [place] 00:00:00 00:00:00 BRANDI [address] 2022-07-01 2022-07-01 Refill Lucero, 1.2.840.1 [id number] 2100 [id number] Methodi 00:00:00 00:00:[address] David 3.430.2.7 Hospit a .3.568713 l .8 2022-06-26 2022-06-26 Office Que Pascual.2.840.1 5335576 [id number] Methodi 14:30:00 16:59:30 Visit Brandi Mares 08060.1.[address] 3.430.2.7 Hospit a .3.869474 l .8 2022-06-26 2022-06-26 Outpatient ALEXDELBERT [facility] [id number] [place] 00:00:00 00:00:00 BRANDI [address] 2022-06-20 2022-06-20 Patient Kat Ahn 1.2.840.1 [id number] 2100 [id number] Methodi 00:00:00 00:00:[address] 3.430.2.7 Hospit a .3.750451 l .8 2022-06-19 2022-06-19 Patient Kat Ahn 1.2.840.1 [id number] 2100 [id number] Methodi 00:00:00 00:00:[address] 3.430.2.7 Hospit a .3.920365 l .8 2022-06-12 2022-06-12 Office Que Pascual 1.2.840.1 [id number] Methodi 14:30:00 15:39:14 Visit Brandi Mares 96748.1.[address] 3.430.2.7 Hospit a .3.361917 l .8 2022-06-12 2022-06-12 Outpatient SUZAN [facility] [id number] [place] 00:00:00 00:00:00 BRANDI [address] 2022-06-10 2022-06-10 Patient Kat Ahn 1.2.840.1 [id number] 2100 [id number] Methodi 00:00:00 00:00:[address] 3.430.2.7 Hospit a .3.918042 l .8 2022-06-06 2022-06-06 Telephone Yoni 1.2.840.1 [id number] 2100 [id number] Methodi 00:00:00 00:00:[address] 3.430.2.7 Hospit a .3.112982 l .8 2022-06-04 2022-06-04 Office Aquiles 1.2.840.1 [id number] [id number] 9321 Methodi 14:15:00 15:32:12 Visit Carmen Kent 37851.1.[address] 3.430.2.7 Hospit a .3.925638 l .8 2022-06-04 2022-06-04 Outpatient AQUILES [facility] [id number] [place] 00:00:00 00:00:00 CARMEN [address] 2022-06-04 2022-06-04 Travel 1.2.840.1 1.2.892.899 7433 564479 Methodi 00:00:00 00:00:[address] 3.430.2.7 0.2.7.3.698 spita .3.740730 084.8 l .8 2022-05-29 2022-05-29 Office Que Pascual 1.2.840.1 [id number] 04 [id number] Methodi 10:30:00 12:59:55 Visit Brandi Mares 59902.1.[address] 3.430.2.7 Hospit a .3.737479 l .8 2022-05-29 2022-05-29 Outpatient JAITLY, [facility] [id number] [place] 00:00:00 00:00:[address]AND[address] 2022-05-27 2022-05-27 Patient Kat Ahn 1.2.840.1 [id number] 2100 [id number] Methodi 00:00:00 00:00:[address] 3.430.2.7 Hospit a .3.582621 l .8 2022-05-22 2022-05-22 Office Lepow, 1.2.840.1 [id number] 3357 Methodi 14:30:00 15:48:34 [place] [address]87.1.[address] 3.430.2.7 Hospit a .3.682109 l .8 2022-05-22 2022-05-22 Lab Lepow, 1.2.840.1 [id number] 1042 Methodi 00:00:00 00:05:00 [place] 11905.1.[address] 3.430.2.7 Hospit a .3.334701 l .8 2022-05-22 2022-05-22 Outpatient LEPKANIKA, [facility] [id number] [place] 00:00:00 00:00:00 QUE [address] 2022-05-22 2022-05-22 Outpatient LEPKANIKA, [facility] [id number] 969 [place] 00:00:00 00:00:00 QUE [address] 2022-05-15 2022-05-15 Office Lepow, 1.2.840.1 [id number] 5123 Methodi 14:30:00 15:08:48 [place] 50146.1.[address] 3.430.2.7 Hospit a .3.110523 l .8 2022-05-15 2022-05-15 Outpatient LEPOW, [facility] [id number] 443 [place] 00:00:00 00:00:00 QUE [address] 2022-05-13 2022-05-13 Patient Kat Ahn 1.2.840.1 [id number] 2100 [id number] Methodi 00:00:00 00:00:[address] 3.430.2.7 Hospit a .3.692645 l .8 2022-05-07 2022-05-07 [facility], 1.2.840.1 [id number] 12093 Methodi 09:33:06 23:59:00 [place] [address]388.1.[address] 3.430.2.7 Hospit a .3.076990 l .8 2022-05-07 2022-05-07 Outpatient [facility] [id number] [place] 00:00:00 00:00:00 QUE [address] 2022-05-07 2022-05-07 Travel 1.2.840.1 1.2.947.623 5940 177813 Methodi 00:00:00 00:00:[address] 3.430.2.7 0.2.7.3.698 spita .3.479394 084.8 l .8 2022-05-01 2022-05-01 Office [facility], 1.2.840.1 [id number] 9988 Methodi 15:15:00 16:26:38 [place] [address]64.1.[address] 3.430.2.7 Hospit a .3.949514 l .8 2022-05-01 2022-05-01 Outpatient [facility] [id number] [place] 00:00:00 00:00:00 QUE [address] 2022-05-01 2022-05-01 Patient Jimy, Kat 1.2.840.1 [id number] 2099 [id number] Methodi 00:00:00 00:00:[address] 3.430.2.7 Hospit a .3.487968 l .8 2022-04-30 2022-04-30 Patient Jimy, Kat 1.2.840.1 [id number] 2099 [id number] Methodi 00:00:00 00:00:[address] 3.430.2.7 Hospit a .3.864420 l .8 2022-04-26 2022-04-26 Office Lilo, 1.2.840.1 [id number] 714 [id number] Methodi 13:00:00 13:39:29 Visit Deepxavier 66878.1.[address] Shlomo 3.430.2.7 Hospit a .3.664405 l .8 2022-04-26 2022-04-26 [facility] [id number] [place] 00:00:00 00:00:[address]EEPAM [address] 2022-04-25 2022-04-25 Travel 1.2.840.1 1.2.872.776 6544 699169 Methodi 00:00:00 00:00:[address] 3.430.2.7 0.2.7.3.698 Ho spita .3.637087 084.8 l .8 2022-04-24 2022-04-24 Office Mickikanika 1.2.840.1 [id number] 9521 Methodi 14:00:00 16:01:10 [place] [address].1.[address] 3.430.2.7 Hospit a .3.558161 l .8 2022-04-24 2022-04-24 [facility] [id number] [place] 00:00:00 00:00:00 QUE [address] 2022-04-22 2022-04-22 Patient Kat Ahn 1.2.840.1 [id number] 2100 [id number] Methodi 00:00:00 00:00:[address] 3.430.2.7 Hospit a .3.982976 l .8 2022-04-14 2022-04-19 Hospital Luz Marina Ybarra 1.2.840.1 [id number] Methodi 13:45:00 18:26:00 Encounter Andreas Zavala 70569.1.[address] Jeannette Llanes 3.430.2.7 H Aquiles Sanches .3.380053 l .8 2022-04-19 2022-04-19 Refill Lucero, 1.2.840.1 [id number] 2099 [id number] Methodi 00:00:00 00:00:[address] David 3.430.2.7 Hospit a .3.013944 l .8 2022-04-19 2022-04-19 Patient Zachery, 1.2.840.1 [id number] 13132 Methodi 00:00:00 00:00:00 Outreach Arielle 14614.1.[address] 3.430.2.7 Hospit a .3.931230 l .8 2022-04-14 2022-04-19 Inpatient LUCERO, [facility] [id number] [place] 00:00:00 00:00:00 AQUILES [address] 2022-04-15 2022-04-15 Patient Kat Ahn 1.2.840.1 2099 [id number] Methodi 00:00:00 00:00:[address] 3.430.2.7 Hospit a .3.425145 l .8 2022-04-14 2022-04-14 Travel 1.2.840.1 1.2.366.588 9741 539415 Methodi 00:00:00 00:00:[address] 3.430.2.7 0.2.7.3.698 spita .3.415250 084.8 l .8 2022-04-08 2022-04-08 Patient Kat Ahn 1.2.840.1 [id number] Methodi 00:00:00 00:00:[address] 3.430.2.7 Hospit a .3.566981 l .8 2022-04-08 2022-04-08 Patient Kat Ahn 1.2.840.1 [id number] Methodi 00:00:00 00:00:[address] 3.430.2.7 Hospit a .3.031834 l .8 2022-04-08 2022-04-08 Patient Simón Cisneros 1.2.840.1 [id number] Methodi 00:00:00 00:00:[address] 3.430.2.7 Hospit a .3.138833 l .8 2022-04-03 2022-04-03 Travel 1.2.840.1 1.2.183.229 3194 [id number] Methodi 00:00:00 00:00:[address] 3.430.2.7 0.2.7.3.698 Ho spita .3.227397 084.8 l .8 2022-04-01 2022-04-01 Patient Kat Ahn 1.2.840.1 [id number] Methodi 00:00:00 00:00:[address] 3.430.2.7 Hospit a .3.913036 l .8 2022-03-27 2022-03-27 Telephone Yoni, 1.2.840.1 [id number] Methodi 00:00:00 00:00:[address] 3.430.2.7 Hospit a .3.132476 l .8 2022-03-27 2022-03-27 Telephone Yoni, 1.2.840.1 [id number] [id number] Methodi 00:00:00 00:00:[address] 3.430.2.7 Hospit a .3.541209 l .8 2022-03-26 2022-03-26 Telephone Yoni, 1.2.840.1 [id number] [id number] Methodi 00:00:00 00:00:[address] 3.430.2.7 Hospit a .3.373775 l .8 2022-03-25 2022-03-25 Patient Kat Ahn 1.2.840.1 [id number] Methodi 00:00:00 00:00:00 [facility] 51520.1.[address] 3.430.2.7 Hospit a .3.972421 l .8 2022-03-17 2022-03-23 [facility] Ratna Peacock 1.2.840 .1 [id number] Methodi 13:25:00 15:26:00 Encounter Malick Patel 43770.1.[address] 3.430.2.7 Hospit a .3.900398 l .8 2022-03-17 2022-03-23 Inpatient LIU [facility] [id number] [place] 00:00:00 00:00:00 MALICK [address] 2022-03-13 2022-03-13 Telephone Yoni 1.2.840.1 [id number] 2100 [id number] Methodi 00:00:00 00:00:[address] 3.430.2.7 Hospit a .3.443304 l .8 2021-12-10 2021-12-11 Outpatient ACRLY, [facility] [id number] [place] 00:00:00 00:00:00 JAI 508 Method i 2021-11-30 2021-11-30 Outpatient AQUILES, [facility] [id number] 760 [place] 00:00:00 00:00:00 CARMEN 555 Method i 2021-10-26 2021-10-26 Outpatient YONI [facility] [id number] 005 [place] 00:00:00 00:00:00 TIM 409 Method i 2021-10-12 2021-10-12 Outpatient AQUILES [facility] [id number] [place] 00:00:00 00:00:00 CARMEN 466 Method i 2021-10-04 2021-10-04 Outpatient YONI [facility] [id number] [place] 00:00:00 00:00:00 TIM [address] 2021-10-04 2021-10-04 Outpatient YONI [facility] [id number] [place] 00:00:00 00:00:00 TIM [address] 2021-08-28 2021-08-28 Outpatient YONI, [facility] [id number] [place] 00:00:00 00:00:00 TIM [address] 2021-08-09 2021-08-09 Outpatient YONI, [facility] [id number] [place] 00:00:00 00:00:00 TIM [address] 2021-08-03 2021-08-03 Outpatient YONI, [facility] [id number] [place] 00:00:00 00:00:00 TIM [address] 2020-11-07 2020-11-07 Outpatient YONI, [facility] [id number] [place] 00:00:00 00:00:00 TIM 752 Method i 2020-08-18 2020-08-18 Outpatient [facility] [id number] [place] 00:00:00 00:00:[address] 2020-08-08 2020-08-10 Outpatient YONI, [facility] [id number] [place] 00:00:00 00:00:00 TIM 869 Method i 2020-08-08 2020-08-08 Outpatient CLAUDE YEH, [facility] MDA [id number] [place] 12:00:52 15:27:06 GENOVEVA montoya 2020-07-28 2020-07-28 Outpatient [facility] [id number] [place] 00:00:00 00:00:[address] 2020-07-25 2020-07-25 Outpatient YONI, [facility] [id number] [place] 00:00:00 00:00:00 TIM 117 Method i 2020-06-23 2020-06-27 Outpatient YONI, [facility] [id number] [place] 00:00:00 00:00:00 TIM 318 Method i 2020-05-25 2020-05-25 Outpatient YONI, [facility] [id number] [place] 00:00:00 00:00:00 TIM [address] 2020-05-03 2020-05-03 Outpatient LISCLAUDIA, [facility] [id number] [place] 00:00:00 00:00:00 JAI [address] 2020-05-01 2020-05-01 Outpatient YONI, [facility] [id number] [place] 00:00:00 00:00:00 TIM [address] 2020-05-01 2020-05-01 Outpatient CARLY [facility] [id number] [place] 00:00:00 00:00:00 JAI [address] 2020-04-27 2020-04-27 Outpatient YONI [facility] [id number] [place] 00:00:00 00:00:00 TIM [address] 2020-04-20 2020-04-20 Outpatient CLAUDE YEH [facility] [id number] 10:41:50 13:17:58 GENOVEVA montoya 2020-03-22 2020-03-22 Outpatient CLAUDE YEH [facility] [id number] 00:00:00 00:00:00 GENOVEVA montoya 2019-12-30 2019-12-31 Outpatient YONI [facility] [id number] [place] 00:00:00 00:00:00 TIM [address] 2019-10-26 2019-10-26 Outpatient YONI [facility] [id number] [place] 00:00:00 00:00:00 TIM [address] Results Test Description Test Time Test Comments Results Result Comments Source POC glycosylated hemoglobin (Hb A1C) 2022-09-05 20:43:29 Test Item Value Reference Range Interpretation Comme nts POC Hemoglobin A1C (test code = 4728072) 6.5 % Lab Interpretation (test code = 82240-5) Abnormal [facility] [id number] 13:46:00 Test Item Value Reference Range Interpretation Comments POC glucose (test code 135 mg/dL 65-99 H Opera tor Name: Jermaine = 68799-2) DianneDevice ID : [id number] able: [facility] Notified map compiler Interpretation Abnormal (test code = 51105-0) [facility] [id number] 19:56:00 Test Item Value Reference Range Interpretation Comments Urine culture (test SEE COMMENT Bacteriu ely screen code = 8003937) negative. [facility] 12 [id number] 02:06:32 Test Item Value Reference Range Interpretation Comments Ventricular rate (test 43 code = 253) QRSD interval (test 110 code = 260) QT interval (test code 484 = 264) QTC interval (test code 408 = 265) QRS axis 1 (test code = -25 268) T wave axis (test code 223 = 270) EKG impression (test Junctional code = 273) bradycardia-Low voltage QRS-Nonspecific ST and T wave abnormality-Abnormal ECG-In automated comparison with ECG of 14-APR-2022 14:34,-Junctional rhythm has replaced Atrial fibrillation-Vent. rate has decreased BY 31 BPM-Nonspecific T wave abnormality now evident in Inferior leads-Inverted T waves have replaced nonspecific T wave abnormality in Lateral leads- [facility] ED Preliminary Interpretation - Not an [id number] 07:05:51 Test Item Value Reference Range Interpretation Comments MIKAYLA (test code = MIKAYLA) Jakub Martinez MD 09/12/2022 7:12 [facility] [place] Preliminary Interpretation - Not an OrderPerformed by: Jakub Martinez MDAuthorized by: Jakub Martinez MD ECG reviewed by ED Physician in the absence of a tapper balance wheel screw hole: yes Interpretation: Interpretation: abnormal Rate: ECG rate: 43 ECG rate assessment: bradycardic Rhythm: Rhythm: junctional QRS: QRS axis: LeftConduction: Conduction: normal ST segments: ST segments: NormalT waves: T waves: normal Comments: Low voltage Lab Interpretation Abnormal (test code = 27451-5) [facility] [id number] 01:46:47 Test Item Value Reference Range Interpretation Comments SARS-CoV-2 (COVID-19) RNA Not detected [Presence] in Respiratory specimen by YVETTE with probe detection (test code = 61421-9) Whether patient resides in a No congregate care setting (test code = 75445-7) Date and time of symptom onset Unknown (test code = 27048-4) Whether the patient was No hospitalized for condition of interest (test code = 88528-6) Whether the patient was admitted No to intensive care unit (ICU) for condition of interest (test code = 83658-1) Whether patient is employed in a No healthcare setting (test code = 36881-0) Whether the patient has symptoms No related to condition of interest (test code = 92516-3) status (test code = No 09380-3) EDGAR RODRIGUEZSurgical pathology [id number] 19:49:48 Test Item Value Reference Range Interpretation Comments Case number (test code = [id number]) Surgical pathology See link below for report (test code = PDF Lab Report 1156) Result status (test code This is Final Report = [id number]) for [id number] [facility] [id number] 19:48:55 Test Item Value Reference Range Interpretation Comments SUPPLIER NAME (test [facility] code = 6415) SUPPLIER PHONE (test code = 6416) ORDER STATUS (test code Delivery Successful = 6417) DELIVERY NOTE (test code = 6419) REQUESTED DELIVEY DATE 04/18/2022 (test code = 6420) ITEM DESCRIPTION (test Swing-Away Foot Rests Qty: 1 code = 6423) EXPECTED DELIVERY DATE 04/19/2022 (test code = 6421) ACTUAL DELIVERY DATE 04/19/2022 (test code = 6422) Tenriism BumnbvieDEIC-KjI-9 (COVID-19) RNA [Presence] in Respiratory specimen by YVETTE with probe [id number] 23:20:03 Test Item Value Reference Range Interpretation Comments SARS-CoV-2 (COVID-19) RNA Not detected [Presence] in Respiratory specimen by YVETTE with probe detection (test code = 27369-8) Whether patient is employed in a Unknown healthcare setting (test code = 67230-7) Whether the patient has symptoms Unknown related to condition of interest (test code = 84515-3) Whether the patient was Unknown hospitalized for condition of interest (test code = 62119-7) Whether the patient was admitted Unknown to intensive care unit (ICU) for condition of interest (test code = 03048-5) Whether patient resides in a Unknown congregate care setting (test code = 21210-4) status (test code = Unknown 07595-4) Date and time of symptom onset Unknown (test code = 71077-2) EDGAR VALLEJORS-CoV-2 (COVID-19) RNA [Presence] in Respiratory specimen by YVETTE with probe [id number] 18:36:15 Test Item Value Reference Range Interpretation Comments SARS-CoV-2 (COVID-19) RNA Not detected [Presence] in Respiratory specimen by YVETTE with probe detection (test code = 63741-6) Whether patient is employed in a Unknown healthcare setting (test code = 48963-0) Whether the patient has symptoms Unknown related to condition of interest (test code = 74969-9) Whether the patient was Unknown hospitalized for condition of interest (test code = 99802-3) Whether the patient was admitted Unknown to intensive care unit (ICU) for condition of interest (test code = 64210-5) Whether patient resides in a Unknown congregate care setting (test code = 77647-4) status (test code = Unknown 29027-4) Date and time of symptom onset Unknown (test code = 42554-0) EDGAR VALLEJORS-CoV-2 (COVID-19) RNA [Presence] in Respiratory specimen by YVETTE with probe [id number] 20:41:33 Test Item Value Reference Range Interpretation Comments SARS-CoV-2 (COVID-19) RNA Not detected Not-Detected [Presence] in Respiratory specimen by YVETTE with probe detection (test code = 15937-1) EDGAR RODRIGUEZ
[2023-02-06 16:57] LABS: Absolute Lymphocytes (CBC) 0.8 K/uL (0.7-4.9); Hematocrit 24.9 % (39.6-49.0); Lymphocytes % 3.4 % (15.3-44.8); MCV 96.4 fL (80-100); MPV 8.8 fL (7.6-11.3); Platelets 145 thou/uL (152-406); RBC Red Blood Cell Count 2.58 M/uL (4.33-5.43)
[2023-02-06 17:00] LABS: Protime INR 1.4
[2023-02-06] MEDS ORDERED: CEFEPIME 1 GM/VIAL ONE (17:00)
[2023-02-06] MEDS ORDERED: NA CHLORIDE 0.9% 100 ML ONE (17:00)
[2023-02-06 17:01] LABS: Blood Morphology Comment NOT SEEN (NOT SEEN); Platelet Estimate ADEQ; White Blood Cell Scan OK (OK)
[2023-02-06 17:11] LABS: Albumin 2.7 g/dL (3.4-5.0); Bilirubin Total 1.2 mg/dL (0.2-1.0); Potassium 4.9 mEq/L (3.5-5.1); Protein, Total 7.1 g/dL (6.4-8.2)
--- NOTE | 2023-02-06 17:12 | RAD REPORT ---
EXAM DESCRIPTION: RAD - Chest Single View - 02/06/2023 5:04 pm CLINICAL HISTORY: FEVER Chest pain. COMPARISON: <Comparisons> FINDINGS: Portable technique limits examination quality. Mild bilateral pulmonary opacities are present in both lung bases likely representing pneumonia. The heart is mildly enlarged in size. No displaced fractures.
--- NOTE | 2023-02-06 17:37 | EDPHYS ---
Physician Documentation [facility] Name: Pierre Bray Age: 82 yrs Sex: Male : 1940 Arrival Date: 02/06/2023 Time: 15:57 Bed 4 Private MD: ED Physician Jessica Moon Historical: - Allergies: 02/06 16:13 Latex, Natural Rubber; ss - PMHx: 16:13 Hypertensive disorder; Diabetes mellitus; Hypercholesterolemia; CHF; ss - Immunization history:: Client reports receiving the 2nd dose of the Covid vaccine. - Social history:: Smoking status: Patient denies any tobacco usage or history of. Vital Signs: 16:14 BP 100 / 68; Pulse 80; Resp 18; Temp 99.5; Pulse Ox 96% on R/A; Weight 111.13 kg; ss Height 6 ft. 6 in. ; Pain 0/10; 17:00 BP 83 / 67; Pulse 66; Resp 18; Pulse Ox 96% ; ko1 18:00 BP 95 / 61; Pulse 66; Resp 18; Pulse Ox 96% ; ko1 19:00 BP 91 / 54; Pulse 68; Resp 16; Pulse Ox 98% ; bp 20:20 BP 85 / 42; Pulse 56; Resp 16; Pulse Ox 99% ; vc1 16:14 Body Mass Index 28.31 (111.13 kg, 198.12 cm) ss 16:14 Pain Scale: Adult ss MDM: 16:21 Patient medically screened. cp3 02/06 16:20 Order name: Blood Culture Adult (2) cp3 02/06 16:20 Order name: CBC with Diff; Complete Time: 17:14 cp3 02/06 16:20 Order name: CMP; Complete Time: 17:14 cp3 02/06 16:20 Order name: Lactate w/ 2H reflex if indic.; Complete Time: 17:14 cp3 02/06 16:20 Order name: Protime (+inr); Complete Time: 17:14 cp3 02/06 16:20 Order name: Ptt, Activated; Complete Time: 17:14 cp3 02/06 16:20 Order name: Urinalysis w/ reflexes cp3 02/06 17:01 Order name: CBC Smear Scan; Complete Time: 17:14 EDMS 02/06 17:16 Order name: BNP; Complete Time: 20:10 cp3 02/06 16:20 Order name: Chest Single View XRAY; Complete Time: 17:14 cp3 02/06 18:08 Order name: Hand Right 3 View XRAY 3 02/06 19:03 Order name: RAD; Complete Time: 20:10 EDMS 02/06 16:20 Order name: EKG; Complete Time: 16:21 3 02/06 16:20 Order name: Accucheck; Complete Time: 16:39 3 02/06 16:20 Order name: Cardiac monitoring; Complete Time: 16:39 3 02/06 16:20 Order name: EKG - Nurse/Tech; Complete Time: 16:39 3 02/06 16:20 Order name: IV Saline Lock - Large Bore; Complete Time: 16:39 3 02/06 16:20 Order name: Labs collected and sent; Complete Time: 16:39 3 02/06 16:20 Order name: O2 Per Protocol; Complete Time: 16:39 3 02/06 16:20 Order name: O2 Sat Monitoring; Complete Time: 16:39 3 02/06 16:20 Order name: Vital Signs; Complete Time: 16:39 3 02/06 16:20 Order name: Wound Care: clean with saline, hibiclens, bacitracin, cover with xeroform, cp3 non stick dressing; Complete Time: 16:59 Administered Medications: 16:59 Drug: Cefepime IVPB 1 grams Route: IVPB; Rate: 200 ml/hr; Infused Over: 30 mins; Site: bp left forearm; 18:11 Drug: vancoMYCIN IVPB 1 grams Route: IVPB; Infused Over: 2 hrs; Site: left forearm; bp 19:53 Drug: Silver SulfADIAZINE Topical Cream 1 % 1 application Route: Topical; Site: left vc1 hand; 20:16 Drug: NS 0.9% IV 1000 ml Route: IV; Rate: 1000 ml; Site: left antecubital; vc1 Disposition Summary: 02/06/23 17:37 Hospitalization Ordered Hospitalization Status: Inpatient Admission cp3 Condition: Stable cp3 Problem: new cp3 Symptoms: have improved cp3 Bed/Room Type: Standard cp3 Provider: Zurdo Bautista(02/06/23 18:15) la1 Location: Intensive Care Unit(02/06/23 20:14) cg Room Assignment: 3-(02/06/23 20:14) cg Diagnosis - Fever presenting with conditions classified elsewhere cp3 - Cellulitis of other sites - left hand cp3 - Acute interstitial pneumonitis cp3 Forms: - Medication Reconciliation Form cp3 - SBAR form cp3 Signatures: Dispatcher [employer] EDJessica Evans MD MD cp3 Pia Peoples, JU DODD Rohit Pinto, ADJUNCT INSTRUCTOR-C ADJUNCT INSTRUCTOR-[facility] Annelise Gloria RN RN Maurice Palomares RN RN bp Bianka Chester RN RN vc1 Corrections: (The following items were deleted from the chart) 18:15 17:37 Rohit Pinto cp3 la1 19:52 17:37 cp3 cg 20:13 19:52 211 cg cg 20:14 17:37 Telemetry/MedSurg (Inpatient) cp3 cg 20:14 20:13 cg cg
--- NOTE | 2023-02-06 17:37 | ER ---
Nurse's Notes [facility] Name: Pierre rBay Age: 82 yrs Sex: Male : 1940 Arrival Date: 02/06/2023 Time: 15:57 Bed 4 Private MD: Diagnosis: Fever presenting with conditions classified elsewhere;Cellulitis of other sites-left hand;Acute interstitial pneumonitis Presentation: 02/06 16:14 Chief complaint: Patient states: Burned R hand Friday. Family noticed he seemed altered ss today and felt very hot. Nurse told him to come get checked. Coronavirus screen: Vaccine status: Patient reports receiving the 2nd dose of the covid vaccine. Client denies travel out of the [place] in the last 14 days. At this time, the client does not indicate any symptoms associated with coronavirus-19. Ebola Screen: Patient denies travel to an Ebola-affected area in the 21 days before illness onset. Initial Sepsis Screen: Does the patient meet any 2 criteria? Altered Mental Status. Yes Does the patient have a suspected source of infection? Yes: Skin breakdown/wound. Risk Assessment: Do you want to hurt yourself or someone else? Patient reports no desire to harm self or others. Onset of symptoms was February 02, 2023. 16:14 Method Of Arrival: Wheelchair ss 16:14 Acuity: TIN 2 ss Triage Assessment: 16:15 General: Appears uncomfortable, ill, Behavior is cooperative, appropriate for age, bp anxious. Pain: Complains of pain in right hand. EENT: No deficits noted. Neuro: No deficits noted. Cardiovascular: No deficits noted. Respiratory: No deficits noted. GI: No signs and/or symptoms were reported involving the gastrointestinal system. : No signs and/or symptoms were reported regarding the genitourinary system. Derm: No deficits noted. Musculoskeletal: No deficits noted. Historical: - Allergies: 16:13 Latex, Natural Rubber; ss - PMHx: 16:13 Hypertensive disorder; Diabetes mellitus; Hypercholesterolemia; CHF; ss - Immunization history:: Client reports receiving the 2nd dose of the Covid vaccine. - Social history:: Smoking status: Patient denies any tobacco usage or history of. Screenin:00 [facility] ED Fall Risk Assessment (Adult) History of falling in the last 3 months, ko1 including since admission No falls in past 3 months (0 pts) Confusion or Disorientation Yes (5 pts) Intoxicated or Sedated No (0 pts) Impaired Gait No (0 pts) Mobility Assist Device Used No (0 pt) Altered Elimination No (0 pt) Score/Fall Risk Level 3 or more points = High Risk Oriented to surroundings, Maintained a safe environment, Educated pt \T\ family on fall prevention, incl call for assistance when getting out of bed, Assessed \T\ reinforced patient's understanding of fall precautions, Provided non-skid footwear, Hourly rounding (assess needs \T\ fall precautionary measures) done, Used ambulatory aids as needed (educated on \T\ assisted with). Abuse screen: Denies threats or abuse. Denies injuries from another. Nutritional screening: No deficits noted. Tuberculosis screening: No symptoms or risk factors identified. Assessment: 16:15 General: SEE TRIAGE NOTE. bp 18:00 Reassessment: No changes from previously documented assessment. Patient is alert, bp oriented x 3, equal unlabored respirations, skin warm/dry/pink. 20:10 Reassessment: reported low blood pressures to provider, new orders placed. vc1 20:36 Reassessment: Failed attempt at calling report, was told the nurse was in another room vc1 and will call me back. Vital Signs: 16:14 BP 100 / 68; Pulse 80; Resp 18; Temp 99.5; Pulse Ox 96% on R/A; Weight 111.13 kg; ss Height 6 ft. 6 in. ; Pain 0/10; 17:00 BP 83 / 67; Pulse 66; Resp 18; Pulse Ox 96% ; ko1 18:00 BP 95 / 61; Pulse 66; Resp 18; Pulse Ox 96% ; ko1 19:00 BP 91 / 54; Pulse 68; Resp 16; Pulse Ox 98% ; bp 20:20 BP 85 / 42; Pulse 56; Resp 16; Pulse Ox 99% ; vc1 16:14 Body Mass Index 28.31 (111.13 kg, 198.12 cm) ss 16:14 Pain Scale: Adult ss ED Course: 15:58 Patient arrived in ED. rg4 16:04 Maurice Palomares, JU is Primary Nurse. bp 16:06 Jessica Moon MD is Attending Physician. cp3 16:06 Arm band placed on Patient placed in an exam room, on a stretcher. ss 16:15 Inserted saline lock: 22 gauge in left forearm, using aseptic technique. Blood bp collected. 16:16 Triage completed. ss 17:06 Chest Single View XRAY In Process Unspecified. EDMS 17:34 Rohit Pinto FNP-C is Hospitalizing Provider. cp3 18:00 Patient has correct armband on for positive identification. Bed in low position. Call ko1 light in reach. Provided Education on: NA. Pulse ox on. NIBP on. Door closed. Noise minimized. Warm blanket given. 18:15 Zurdo Bautista MD is Hospitalizing Provider. la1 22:09 No provider procedures requiring assistance completed. Patient admitted, IV remains in vc1 place. Administered Medications: 16:59 Drug: Cefepime IVPB 1 grams Route: IVPB; Rate: 200 ml/hr; Infused Over: 30 mins; Site: bp left forearm; 18:11 Drug: vancoMYCIN IVPB 1 grams Route: IVPB; Infused Over: 2 hrs; Site: left forearm; bp 19:53 Drug: Silver SulfADIAZINE Topical Cream 1 % 1 application Route: Topical; Site: left vc1 hand; 20:16 Drug: NS 0.9% IV 1000 ml Route: IV; Rate: 1000 ml; Site: left antecubital; vc1 Medication: 20:22 VIS not applicable for this client. vc1 Outcome: 17:37 Decision to Hospitalize by Provider. cp3 21:45 Admitted to ICU accompanied by nurse, via stretcher, room -3, Report called to vc1 JU Regalado 21:45 Condition: good 21:45 Instructed on the need for admit. 21:45 Patient left the ED. vc1 Signatures: Dispatcher [employer] Jessica Ramos MD MD cp3 Pia Peoples, RN RN ss Rohit Pinto FNP-C FNP-Francie Campbell rg4 Maurice Palomares RN RN Bianka Garcia RN RN vc1 Bisi Ni RN RN ko1 Corrections: (The following items were deleted from the chart) 22:13 22:13 Patient left the ED. vc1 vc1
[2023-02-06] MEDS ORDERED: VANCOMYCIN 1 GM/VIAL ONE (18:10)
[2023-02-06] MEDS ORDERED: NA CHLORIDE 0.9% 250 ML ONE (18:10)
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
--- NOTE | 2023-02-06 19:03 | RAD REPORT ---
EXAM DESCRIPTION: RAD - Hand Right 3 View - 02/06/2023 6:45 pm CLINICAL HISTORY: PAIN COMPARISON: No comparisons FINDINGS: Joint space narrowing with small osteophytes are seen throughout the hand predominately in volving the MCP is well as the DIP and PIP joints. This pattern is typical of osteoarthritis. No acut e fracture or dislocation seen.
[2023-02-06] MEDS ORDERED: SILVER SULFADIAZINE 1% 25 GM TOP ONE (19:46)
[2023-02-06] MEDS ORDERED: NA CHLORIDE 0.9% 1,000 ML ONE (20:21)
[2023-02-06] MEDS ORDERED: ONDANSETRON 4 MG/2 ML VIAL IV PRN (22:00)
[2023-02-06] MEDS ORDERED: HYDROCODONE/APAP 5/325 MG TAB PO PRN (22:00)
[2023-02-06] MEDS ORDERED: VANCOMYCIN 1 GM in NA CHLORIDE 0.9% 250 ML IVPB SCH (22:00)
[2023-02-06] MEDS: INSULIN -REGULAR HUMAN 50 UNIT/0.5 ML ML SQ SCH (22:00)
[2023-02-06] MEDS ORDERED: ACETAMINOPHEN 500 MG TAB PO PRN (22:00)
[2023-02-06] MEDS ORDERED: SILVER SULFADIAZINE 1% 25 GM TOP SCH (22:00)
[2023-02-06 22:05] VITALS: BMI 29.1
--- NOTE | 2023-02-06 22:20 | P.PN ---
Date of Service: 02/06/23 Sepsis reassessment complete, patient took his oral anti-hypertensive pills without discussing with staff about 2 hours ago which is likely contributing to hypotension. Continue IVF, may require vasopressors are persistently low.
[2023-02-06] MEDS ORDERED: VANCOMYCIN 1 GM in NA CHLORIDE 0.9% 250 ML IVPB ONE (23:00)
[2023-02-06 23:44] LABS: Potassium 4.9 mEq/L (3.5-5.1)
[2023-02-07] MEDS: NA CHLORIDE 0.9% 1,000 ML IV SCH ×4 (00:11→21:47)
[2023-02-07] MEDS: HEPARIN 5000 UNIT/ML 1 ML VIAL SQ SCH ×3 (00:14→20:16)
[2023-02-07] MEDS ORDERED: NA CHLORIDE 0.9% 250 ML IV ONE (02:08)
[2023-02-07] MEDS ORDERED: NOREPINEPHRINE 4 MG in D5W 250 ML IV SCH (03:00)
[2023-02-07 05:33] LABS: Absolute Lymphocytes (CBC) 1.3 K/uL (0.7-4.9); Hematocrit 24.9 % (39.6-49.0); Lymphocytes % 5.3 % (15.3-44.8); MPV 7.9 fL (7.6-11.3); Platelets 144 thou/uL (152-406)
[2023-02-07 05:54] LABS: Albumin 2.6 g/dL (3.4-5.0); Bilirubin Total 0.9 mg/dL (0.2-1.0); Ferritin 330.8 ng/mL (26-388); Potassium 4.7 mEq/L (3.5-5.1); Thyroid Stimulating Hormone 1.37 uIU/mL (0.358-3.740); Uric Acid 7.8 mg/dL (3.5-7.2)
[2023-02-07 06:45] LABS: Blood Morphology Comment NOT SEEN (NOT SEEN); Platelet Estimate ADEQ; White Blood Cell Scan OK (OK)
[2023-02-07] MEDS: INSULIN -REGULAR HUMAN 50 UNIT/0.5 ML ML SQ SCH ×4 (07:30→21:46)
--- NOTE | 2023-02-07 07:48 | RAD REPORT ---
EXAM DESCRIPTION: US - Renal Ultrasound-Complete - 02/06/2023 11:57 pm CLINICAL HISTORY: arf Flank pain COMPARISON: No comparisons FINDINGS: The right kidney appears mildly echogenic. The left kidney echogenicity is within normal l imits. The right kidney measures 10.9 x 5.7 x 5.2 cm. No hydronephrosis, focal mass or perinephric fluid. The left kidney measures 10.5 x 6.3 x 5.8 cm. No hydronephrosis, focal mass or perinephric fluid. The urinary bladder is incompletely distended without gross abnormality seen. IMPRESSION: Mildly echogenic right kidney is seen compatible with underlying medical renal disease. No hydronephrosis or suspicious mass.
[2023-02-07] MEDS ORDERED: NA CHLORIDE 0.9% 500 ML IV ONE ×2 (07:57→11:30)
[2023-02-07] MEDS: NOREPINEPHRINE BITARTRATE/D5W 4 MG/250 ML BAG IV SCH ×2 (08:08→14:19)
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
[2023-02-07] MEDS: HYDROCORTISONE SUC 100 MG INJ IV SCH ×2 (11:32→20:18)
[2023-02-07] MEDS ORDERED: CEFEPIME 1 GM in NA CHLORIDE 0.9% 100 ML IV SCH (12:00)
[2023-02-07] MEDS: SILVER SULFADIAZINE 1% 50 GM TOP SCH ×2 (13:45→20:16)
[2023-02-07 13:57] LABS: Specific Gravity 1.012 (1.005-1.030); Urine Bacteria None Seen /HPF (<20); Urine Bilirubin NEGATIVE (Negative); Urine Blood Negative (Negative); Urine Clarity Clear (Clear); Urine Color Light-Yellow (Yellow); Urine Glucose TRACE (Negative); Urine Mucus Slight /HPF (None Seen); Urine Protein TRACE (Negative); Urine RBC <5 /HPF (None Seen); Urine Urobilinogen Normal (Normal)
[2023-02-07 14:57] LABS: Arterial Blood Carboxyhemoglob 1.7 % (0-1.5); Blood Gas Oxyhemoglobin 92.3 % (94-97); Blood O2 Saturation 95.4 % (92-98.5)
[2023-02-07 16:33] LABS: Urine Protein/Creatinine Ratio 1.09 ratio (<0.15)
[2023-02-07] MEDS: SODIUM BICARB 325 MG TAB PO SCH ×2 (17:00→20:17)
[2023-02-08 05:18] LABS: Absolute Lymphocytes (CBC) 1.2 K/uL (0.7-4.9); Hematocrit 23.1 % (39.6-49.0); Lymphocytes % 12.6 % (15.3-44.8); MCV 96.9 fL (80-100); MPV 7.6 fL (7.6-11.3); Platelets 96 thou/uL (152-406); RBC Red Blood Cell Count 2.38 M/uL (4.33-5.43)
[2023-02-08 05:30] LABS: Albumin 2.3 g/dL (3.4-5.0); Bilirubin Total 0.4 mg/dL (0.2-1.0); Potassium 4.2 mEq/L (3.5-5.1); Protein, Total 6.4 g/dL (6.4-8.2)
[2023-02-08] MEDS: INSULIN -REGULAR HUMAN 50 UNIT/0.5 ML ML SQ SCH ×4 (07:30→20:57)
[2023-02-08] MEDS: SODIUM BICARB 325 MG TAB PO SCH ×2 (08:45→20:57)
[2023-02-08] MEDS: HEPARIN 5000 UNIT/ML 1 ML VIAL SQ SCH ×2 (08:45→20:56)
[2023-02-08] MEDS: HYDROCORTISONE SUC 100 MG INJ IV SCH (08:45)
[2023-02-08] MEDS: SILVER SULFADIAZINE 1% 50 GM TOP SCH ×2 (08:46→20:58)
[2023-02-08] MEDS: NA CHLORIDE 0.9% 1,000 ML IV SCH (10:55)
[2023-02-08] MEDS ORDERED: OXYBUTYNIN ER 5 MG TAB PO PRN (11:30)
--- NOTE | 2023-02-08 11:32 | P.PN ---
Subjective Date of Service: 02/08/23 Chief Complaint: Pneumonia, sepsis Patient is doing much better he is improved significantly count is back to normal he is currently being weaned off from his vasopressors Review of Systems is unable to be obtained Physical Examination - Vital Signs Temperature: 98.8 F Blood Pressure: 108/48 Pulse: 52 Respirations: 17 Pulse Ox (%): 97 - Physical Exam General: Alert, In no apparent distress, Oriented x3 Cardiovascular: No edema, Normal pulses Assessment And Plan - Current Problems (Diagnosis) (1) Pneumonia Current Visit: Yes Status: Acute Plan: Patient is 82 years of age admitted with bilateral pneumonia he is doing much better white count is now normal we will wean off the vasopressors renal function has improved significantly he is mildly anemic so far cultures are negative continue with IV antibiotics he is got chronic diastolic heart failure Qualifiers: Laterality: bilateral
[2023-02-08] MEDS ORDERED: VANCOMYCIN 2 GM in NA CHLORIDE 0.9% 500 ML IVPB SCH ×3 (12:00)
[2023-02-08] MEDS ORDERED: CEFEPIME 2 GM in NA CHLORIDE 0.9% 100 ML IV SCH (17:00)
--- NOTE | 2023-02-08 17:00 | PN ---
Date of Progress Note: 02/08/2023 Subjective: Patient was admitted with acute kidney injury secondary to prerenal. Patient had histor y of congestive heart failure. Patient started on hydration. Kidney function has been improved back to normal. Objective: Vital Signs: When I saw the patient, blood pressure 108/48, pulse of 82, afebrile. Tonja ent off Levophed. Chest: Clear to auscultation. Heart: S1, S2. Systolic murmur. Abdomen: Soft, nontender. Extremity: Trace edema. Neuro: Alert. No focality. Laboratory Data: For the patient, renal ultrasound; 10./10.5, no hydronephrosis. Sodium 135, potas sium 4.2, bicarb 21, BUN 34, creatinine 1.2. GFR of 57. Calcium of 8, hemoglobin 7.7. Current Medications: The patient on currently cefepime, heparin, Tylenol, sodium bicarb, hydrocortis one. IV fluid. Assessment And Plan: 1.Acute kidney injury secondary to prerenal, poor perfusion acute tubular necrosis, toxic acute tubu lar necrosis secondary to sepsis, and low blood pressure, on the recovery phase, looked to me patient on the normal volume. I am going to discontinue IV fluids. Keep holding any diuresis. 2.Hypertension, currently hypotension. Hold all blood pressure medications. 3.Sepsis/septic shock. Continue current antibiotic. We will follow up. 4.Hyponatremia secondary to depletional. Recover. 5.Congestive heart failure, currently patient on normal volume. Hold all diuresis for the time bein g. Time spent examining the patient [id number], reviewing data, lab and radiology, placing order, disc ussing the case with the cafeteria team leader including hospitalist and nursing staff more than 35 minutes. MILADYS/SANA Voice ID: [id number] Report ID: [id number]
--- NOTE | 2023-02-08 17:51 | CON ---
Date of Consultation: 02/08/2023 Reason For Consultation: Elevated BUN and creatinine, fluid management. 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 The pa elisabet was in his regular state of health, came to the hospital. DICTATION ENDS HERE. YAYO Voice ID: [id number] Report ID: [id number]
[2023-02-08] MEDS: ATORVASTATIN 10 MG TAB PO SCH (20:56)
[2023-02-08] MEDS: CEFEPIME 2 GM in NA CHLORIDE 0.9% 100 ML IV SCH (20:56)
[2023-02-09 05:00] LABS: Absolute Lymphocytes (CBC) 1.3 K/uL (0.7-4.9); Hematocrit 23.8 % (39.6-49.0); Lymphocytes % 22.2 % (15.3-44.8); MCV 96.9 fL (80-100); MPV 7.9 fL (7.6-11.3); Platelets 95 thou/uL (152-406); RBC Red Blood Cell Count 2.46 M/uL (4.33-5.43)
[2023-02-09 05:21] LABS: Albumin 2.4 g/dL (3.4-5.0); Bilirubin Total 0.5 mg/dL (0.2-1.0); Potassium 4.2 mEq/L (3.5-5.1); Protein, Total 6.6 g/dL (6.4-8.2)
[2023-02-09] MEDS: INSULIN -REGULAR HUMAN 50 UNIT/0.5 ML ML SQ SCH ×4 (07:30→20:24)
[2023-02-09] MEDS: CEFEPIME 2 GM in NA CHLORIDE 0.9% 100 ML IV SCH (09:00)
[2023-02-09] MEDS: HEPARIN 5000 UNIT/ML 1 ML VIAL SQ SCH ×2 (09:17→20:09)
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
[2023-02-09] MEDS: SODIUM BICARB 325 MG TAB PO SCH ×2 (09:18→20:15)
[2023-02-09] MEDS: SILVER SULFADIAZINE 1% 50 GM TOP SCH ×2 (09:20→20:24)
--- NOTE | 2023-02-09 10:53 | RAD REPORT ---
EXAM DESCRIPTION: Yung Single View02/09/2023 10:35 am CLINICAL HISTORY: Chest pain COMPARISON: 02/06/2023 FINDINGS: The lungs appear clear of acute infiltrate. The heart is mildly to moderately enlarged IMPRESSION: No acute abnormalities displayed
--- NOTE | 2023-02-09 13:03 | PN ---
Date of Progress Note: 02/09/2023 Subjective: Patient was admitted to the hospital with acute kidney injury secondary to prerenal. Patient had congestive heart failure. We started the patient on hydration. Kidney function started being improved, back to baseline. Patient is feeling well. Patient is on room air. Physical Examination: Vital Signs: Blood pressure 113/93, pulse of 61, afebrile. Patient had good urine output of 3 L, negative of 1300. Chest: Clear to auscultation. Heart: S1, S2. Regular. Systolic murmur. Abdomen: Soft, nontender. Extremities: Trace edema. Neuro: Alert. Nonfocal. Laboratory Data: Hemoglobin 7.9. Sodium 136, potassium 4.2, bicarb 23, BUN 30, creatinine 1.2. Continue to trend down, GFR of 58. Calcium 8.3. Iron saturation is still pending. Albumin 2.4. Current Medications: Patient is on include: 1. Atorvastatin. 2. Levaquin. 3. Tylenol. 4. Sodium bicarbonate 1300 b.i.d. 5. Oxybutynin. Assessment And Plan: 1. Acute kidney injury secondary to toxic acute tubular necrosis with sepsis. Currently, blood pressure stabilized given the history of congestive heart failure CRS IV fluids and we will continue to monitor the patient. 2. Hypertension with the presence of acute kidney injury. Blood pressure is currently on the lower side. Keep holding blood pressure medications. 3. Septic shock. Continue current antibiotic culture negative. We will follow up with primary. 4. Hyponatremia, secondary to depletional. Recover. 5. Congestive heart failure. Normal volume. Keep holding diuresis, hold IV fluid. 6. Diabetes as by primary. 7. Acidosis, recover. I am going to go ahead and decrease the sodium bicarb to 650 and we will follow up the patient. Time spent examining the patient [id number], reviewing data, lab and radiology, placing order, discussing the case with the warehouse team member including hospitalist and nursing staff more than 35 minutes. YAYO Voice ID: [id number] Report ID: [id number] MTDD
[2023-02-09] MEDS: METOPROLOL XL 25 MG TAB PO SCH (20:14)
[2023-02-09] MEDS: ATORVASTATIN 10 MG TAB PO SCH (20:14)
[2023-02-10 05:12] LABS: Hematocrit 23.9 % (39.6-49.0); MCV 96.4 fL (80-100); MPV 7.7 fL (7.6-11.3); Platelets 98 thou/uL (152-406); RBC Red Blood Cell Count 2.48 M/uL (4.33-5.43)
[2023-02-10 05:27] LABS: Potassium 4.3 mEq/L (3.5-5.1)
[2023-02-10] MEDS: INSULIN -REGULAR HUMAN 50 UNIT/0.5 ML ML SQ SCH ×4 (07:30→21:34)
--- NOTE | 2023-02-10 07:49 | RAD REPORT ---
[facility] 4:46 am CLINICAL HISTORY: pneumonia COMPARISON: Chest Single View dated 02/09/2023; Chest Single View dated 02/06/2023 TECHNIQUE: Portable AP view of the chest. FINDINGS: The lungs are clear. No pneumothorax or effusion. The cardiomediastinal contours are unre markable. IMPRESSION: No acute cardiopulmonary process.
--- NOTE | 2023-02-10 07:50 | ECHO ---
HEIGHT: 6 ft 7 in WEIGHT: 258 lb 6.4 oz DATE OF STUDY: 02/07/[address]: Rohit Pinto NP 2-DIMENSIONAL: YES M.MODE: YES DOPPLER: YES COLOR FLOW: YES TDS: PORTABLE: YES DEFINITY: BUBBLE STUDY: DIAGNOSIS: CONGESTIVE HEART FAILURE CARDIAC HISTORY: CATHERIZATION: SURGERY: PROSTHETIC VALVE: PACEMAKER: MEASUREMENTS (cm) DIASTOLIC (NORMALS) SYSTOLIC (NORMALS) IVSd 1.3 (0.6-1.2) LA Diam 5.3 (1.9-4.0) LVEF 79% LVIDd 5.4 (3.5-5.7) LVIDs 2.8 (2.0-3.5) %FS 48% LVPWd 1.4 (0.6-1.2) Ao Diam 3.1 (2.0-3.7) 2 DIMENSIONAL ASSESSMENT: RIGHT ATRIUM: NORMAL LEFT ATRIUM: ENLARGED RIGHT VENTRICLE: NORMAL LEFT VENTRICLE: LEFT VENTRICULAR HYPERTROPHY TRICUSPID VALVE: MILD TRICUSPID REGURGITATION MITRAL VALVE: MITRAL ANNULAR CALCIFICATION WITH MILD MITRAL REGURGITATION PULMONIC VALVE: NORMAL AORTIC VALVE: CALCIFIED AORTIC VALVE, NO AORTIC STENOSIS PERICARDIAL EFFUSION: NONE AORTIC ROOT: NORMAL LEFT VENTRICULAR WALL MOTION: NORMAL DOPPLER/COLOR FLOW: SEE BELOW COMMENTS: 1. NORMAL LEFT VENTRICULAR EJECTION FRACTION GREATER THAN 60% AND HYPERDYNAMIC LEFT VENTRICLE 2. SEVERE DIASTOLIC DYSFUNCTION 3. MODERATE CONCENTRIC LEFT VENTRICULAR HYPERTROPHY 4. LEFT ATRIAL ENLARGEMENT (SEVERE) 5. MILD TRICUSPID REGURGITATION 6. SEVERE PULMONARY HYPERTENSION WITH RIGHT VENTRICULAR SYSTOLIC PRESSURE GREATER THAN 70 mmHg TECHNOLOGIST: MELYSSA HORNE
[2023-02-10] MEDS ORDERED: levoFLOXacin 500 MG TAB PO SCH (09:00)
[2023-02-10] MEDS: METOPROLOL XL 25 MG TAB PO SCH (09:00)
[2023-02-10] MEDS: HEPARIN 5000 UNIT/ML 1 ML VIAL SQ SCH (09:21)
[2023-02-10] MEDS: SODIUM BICARB 325 MG TAB PO SCH ×2 (09:21→21:33)
[2023-02-10] MEDS: SILVER SULFADIAZINE 1% 50 GM TOP SCH ×2 (09:22→21:32)
[2023-02-10] MEDS ORDERED: levoFLOXacin 250 MG TAB PO ONE (10:00)
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
--- NOTE | 2023-02-10 13:13 | EKG ---
Test Date: 2023-02-07 Test Time: 09:15:33 [employer]icians: MIKO MEASUREMENT RESULTS: Intervals: Rate: 64 IL: QRSD: 100 QT: 430 QTc: 443 [place]: P: IL: QRS: -17 T: 30 INTERPRETIVE STATEMENTS: Atrial fibrillation Abnormal ECG Compared to ECG 02/06/2023 16:42:01 No significant changes Electronically Signed On 02-10-23 13:09:25 CDT by Flaco Dorman
--- NOTE | 2023-02-10 13:16 | EKG ---
Test Date: 2023-02-06 Test Time: 16:42:01 Cook Jelly: MARIAN MEASUREMENT RESULTS: Intervals: Rate: 69 WI: QRSD: 108 QT: 426 QTc: 456 [place]: P: WI: QRS: -19 T: 14 INTERPRETIVE STATEMENTS: Atrial fibrillation Abnormal ECG Compared to ECG 09/08/2002 08:21:00 Sinus bradycardia no longer present Atrial abnormality no longer present ST (T wave) deviation no longer present Possible ischemia no longer present Electronically Signed On 02-10-23 13:10:57 CDT by Flaco Dorman
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
[2023-02-10] MEDS: ATORVASTATIN 10 MG TAB PO SCH (21:35)
--- NOTE | 2023-02-11 03:12 | PN ---
Date of Progress Note: 02/10/2023 Chief Complaint: Acute kidney injury. Subjective: The patient was found to have nonoliguric urine output. Blood pressure was elevated and the patient is started on additional blood pressure medication. Yesterday he became hypotensive and blood pressure medication was on hold. The patient denies chest pain, palpitation. Physical Examination: Lungs: Clear to auscultation bilaterally. Heart: S1-S2. Abdomen: Soft, benign. Extremities: Trace edema. Lab Work: Hemoglobin 7.8, WBC 4.7, platelet count is 98,000. Sodium , potassium 4.3, chlo ride 106, CO2 24, BUN 24, creatinine 0.99, glucose 170. Creatinine level has improved from 2.18-0.9 during this admission. Impression And Plan: 1.Acute on chronic kidney injury. Renal function has improved. Acute kidney injury is resolving. The patient developed acute kidney injury secondary to ATN. 2.Borderline hypotension. Monitor blood pressure medication on hold. 3.Septic shock. The patient is on antibiotics. 4.Hyponatremia secondary to acute kidney injury and sepsis with complicated history of congestive he art failure. Currently, the patient has normal volemia and diuretic and IV fluids are on hold. Maria R tor electrolytes and check TSH level. 5.Diabetes mellitus per Primary Team. 6.Acidosis recovered. The patient was taking sodium bicarbonate tablets and dose was titrated down. VANITA/SANA Voice ID: [id number] Report ID: [id number]
[2023-02-11 05:11] LABS: Absolute Lymphocytes (CBC) 1.2 K/uL (0.7-4.9); Hematocrit 23.7 % (39.6-49.0); Lymphocytes % 23.8 % (15.3-44.8); MCV 96.5 fL (80-100); MPV 7.9 fL (7.6-11.3); Platelets 94 thou/uL (152-406); RBC Red Blood Cell Count 2.46 M/uL (4.33-5.43)
[2023-02-11 05:26] LABS: Magnesium 2.2 mg/dL (1.6-2.4); Phosphorus 2.4 mg/dL (2.5-4.9); Potassium 4.5 mEq/L (3.5-5.1)
[2023-02-11] MEDS: INSULIN -REGULAR HUMAN 50 UNIT/0.5 ML ML SQ SCH (07:30)
[2023-02-11 08:28] LABS: Platelet Estimate DECR
[2023-02-11 08:29] LABS: Blood Morphology Comment NOT SEEN (NOT SEEN)
[2023-02-11] MEDS ORDERED: levoFLOXacin 750 MG TAB PO SCH (09:00)
[2023-02-11 09:06] VITALS: TEMP 97.2
[2023-02-11] MEDS: SODIUM BICARB 325 MG TAB PO SCH (09:32)
[2023-02-11] MEDS: SILVER SULFADIAZINE 1% 50 GM TOP SCH (09:33)
[2023-02-11 09:49] VITALS: O2SAT 97
--- NOTE | 2023-02-11 11:54 | PN ---
Date of Progress Note: 02/11/2023 Subjective: The patient doing well. The patient was admitted with acute kidney injury with acidosis secondary to prerenal, complicated with hyponatremia. The patient's after hydration kidney function has been improved, normalized. Hyponatremia resolved. Physical Examination: Vital Signs: Blood pressure 120/60, pulse of 61, afebrile. Chest: Clear to auscultation. Heart: S1, S2. Regular. Abdomen: Soft, nontender. Extremity: No edema. Dressing on the right hand. Laboratory Data: Sodium 135, potassium 4.5, bicarb 24, BUN 24, creatinine 1, GFR of 74, calcium 8.6, phosphorus 2.4, magnesium 2.2, hemoglobin 8. Current Medications: The patient on include Levaquin 750 daily, atorvastatin, Tylenol, sodium bicarb 650 b.i.d., Zofran, insulin, oxybutynin. Assessment And Plan: 1.Acute kidney injury secondary to prerenal, toxic ATN, recovered, resolved. 2.Hypertension, controlled, optimal. I am going to continue current medication. 3.Hyponatremia, depletional. The patient continued to recover off IV fluid. We will continue to mo nitor. 4.Acidosis secondary to renal failure, resolved. I am going to go ahead and discontinue bicarb. 5.Septic shock secondary to urinary tract infection/pneumonia. Continue current antibiotic, dose ap propriate. 6.Congestive heart failure. The patient is stable, currently back to normal volume. I am going to resume low dose of Lasix and we will follow up the patient. Time spent examining the patient [id number] 35 minutes. YAYO Voice ID: [id number] Report ID: [id number]
[2023-02-11 13:05] VITALS: BP 128/65
[2023-02-12] MEDS ORDERED: FUROSEMIDE 20 MG TABLET PO SCH (09:00)
== END 2023-02-11 13:33 | disposition home health service (06) | DRG 871 ==
LOC: ER 15:57 → ERHOLD 18:16 → 2ND 20:05 → 3RD-ICU 20:20 → 2ND 02-09 12:50
PROVIDERS: ADMIT Internal Medicine Sleep Medicine; ATTEND Hospitalist
DX: A41.9 Sepsis, unspecified organism (principal); G92.8 Other toxic encephalopathy; N17.0 Acute kidney failure with tubular necrosis; R65.21 Severe sepsis with septic shock; J84.114 Acute interstitial pneumonitis; L03.114 Cellulitis of left upper limb; E87.1 Hypo-osmolality and hyponatremia; I50.32 Chronic diastolic (congestive) heart failure; I13.0 Hypertensive heart and chronic kidney disease with heart failure and stage 1 through stage 4 chronic kidney disease, or unspecified chronic kidney disease; E87.4 Mixed disorder of acid-base balance; N18.32 Chronic kidney disease, stage 3b; E11.22 Type 2 diabetes mellitus with diabetic chronic kidney disease; D63.1 Anemia in chronic kidney disease; I27.20 Pulmonary hypertension, unspecified; D69.6 Thrombocytopenia, unspecified; E78.00 Pure hypercholesterolemia, unspecified; T23.261A Burn of second degree of back of right hand, initial encounter; C44.42 Squamous cell carcinoma of skin of scalp and neck; Z60.2 Problems related to living alone; Z91.040 Latex allergy status; Z79.84 Long term (current) use of oral hypoglycemic drugs; Z79.899 Other long term (current) drug therapy
CPT/HCPCS: 36415; 36600; 71045; 76770; 80048; 80053; 81001; 82550; 82570; 82607; 82728; 82805; 82947; 83540; 83605; 83735; 83880; 83935; 84100; 84132; 84156; 84300; 84439; 84443; 84466; 84550; 85025; 85027; 85610; 85730; 86850; 86900; 86901; 87040; 93005; 93306; 96374; 96375; 97116; 97161; 99285; J0692; J1644; J1720; J1815; J7030; J7040; J7050; J7060

== ENCOUNTER 2023-04-08 22:39 | Inpatient (IN) | payer OTHER, BC ==
--- OUTSIDE RECORDS SUMMARY | 2023-04-08 22:45 | XMS REPORT | Continuity of Care Document ---
:1940 Author Organization [facility] t Address [address] [place] [address] [address] [place] [address] Care Team Providers Name Role Phone [phone] Primary Care Physician Unavailable Kurt Polanco Attending Clinician Candis Guillen MA Attending Clinician Unavailable Jie CALHOUN, Ya Thomason Attending Clinician [phone] Nicolas Jolly PEDIATRIC PSYCHIATRIST, Kelley Winn Attending Clinician [facility]I Attending Clinician Unavailable Kamron Cormier MA Attending Clinician Unavailable Mariela Abbott Attending Clinician Unavailable Aquiles CALHOUN, Carmen Kent Attending Clinician Tanisha Delgadillo RN Attending Clinician Unavailable Samara WINN MD, Que Aj Attending Clinician [facility], Ralph Attending Clinician Unavailable Cathleen Isbell MD Attending Clinician Juan CALHOUN, Jakub Sosa Attending Clinician Mario Alberto CALHOUN, Jeannette Attending Clinician Roshni CALHOUN, Jared Cruz Attending Clinician Ayana CALHOUN, Dianelys Monsivais Attending Clinician [phone] Aliyah CALHOUN, Tara Eldridge Attending Clinician [phone] Suzan CALHOUN, Brandi Attending Clinician Lucero CALHOUN, Aquiles Hernandez Attending Clinician [phone] Jimy DODD, Kat Attending Clinician Unavailable Yoni CALHOUN, Tim Attending Clinician Luz Marina Ybarra MD Attending Clinician Andreas Zavala MD Attending Clinician Arielle Bingham Attending Clinician Unavailable Simón Cisneros Attending Clinician Unavailable Ratna Peacock MD Attending Clinician [phone] Malick Patel MD Attending Clinician JAI CARROLL Attending Clinician Unavailable GENOVEVA YEH Attending Clinician Unavailable MD JAI CARROLL Attending Clinician Unavailable _TNC_Cherches_I Admitting Clinician Unavailable JEANNETTE LLANES Admitting Clinician Unavailable ANDREAS ZAVALA Admitting Clinician Unavailable MALICK PATEL Admitting Clinician Unavailable JAI CARROLL Admitting Clinician Unavailable MD JAI CARROLL Admitting Clinician Unavailable Payers Payer Name Policy Type Policy Number Effective Date Expiration Date S ource [place] [id number] 2009 00:00:00 MEDICARE PART A [id number] 2006 [place] B 00:00:00 [place] [id number] 2006 [place] 00:00:00 [place] [id number] [place] (MEDICARE 00:00:00 SUPPLEMENT) Problems Condition Condition Condition Status Onset Resolution Last Treating Co mments Source Name Details Category Date Date Treatment Clinician Date 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 00:00: Hospit a on left on left 00 l Lesion of Lesion of Disease Active [facility] left ulnar left ulnar 8-11 st nerve nerve 00:00: Hospita 00 l 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-02 st syndrome syndrome 00:00: Hospit a on right on right 00 l Lesion of Lesion of Disease Active [facility] right right 8-02 st ulnar ulnar 00:00: Hospita nerve nerve 00 l 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-02 st syndrome, syndrome, 00:00: [facility] left upper left upper 00 l limb limb Lesion of Lesion of Disease Active [facility] ulnar ulnar 8-02 st nerve, nerve, 00:00: Hospita left upper left upper 00 l limb limb Elevated Elevated Disease Active [facility] di alkaline alkaline 2-21 st phosphatas phosphatas 00:00: Ho spita e level e level 00 l 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 anemia 2- st 00:00: Hospita 00 l Acute on Acute [...] [facility] di deconditio deconditio 0-10 st carey carey 00:00: Hospita 00 l Diabetic Diabetic Disease Active 2021-07 [facility] di foot foot 0-09 st infection infection 00:00: [facility] 00 l Scrotal Scrotal Disease Active [facility] swelling swelling 9-11 st 00:00: Hospita 00 l Angina of Angina of Disease Active [facility] effort effort 6-06 st 00:00: Hospita 00 l Elevated Elevated Disease Active [facility] di LFTs LFTs 08-06 st 00:00: Hospita 00 l B12 B12 Disease Active [facility] deficiency deficiency 08-06 st 00:00: Hospita 00 l Generalize Generalize Disease Active M ethodi d d 6 st abdominal abdominal 00:00: [facility] pain pain 00 l 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 00:00: Hospit a spine spine 00 l without without myelopathy myelopathy Chronic Chronic Disease Active [facility] inflammato inflammato 2- st ry ry 00:00: Hospita demyelinat demyelinat 00 l ing ing polyneurit polyneurit is is Diabetic Diabetic Disease Active [facility] di polyneurop polyneurop 2- st athy athy 00:00: Hospita 00 l Peripheral Peripheral Disease Active 2015-0 M ethodi neuropathy neuropathy 2 st 00:00: Hospita 00 l 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 00:00: Hospita polyneurop polyneurop 00 l athy athy 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 2-12 st osteoarthr osteoarthr 00:00: Ho spita opathy opathy 00 l Low back Low back Disease Active [facility] pain pain 2 st 00:00: Hospita 00 l 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 00:00: Hospit a with with 00 l neurologic neurologic al al manifestat manifestat ions ions Osteoarthr Osteoarthr Disease Active 2015-0 M ethodi itis of itis of 2-12 st knee knee 00:00: Hospita 00 l 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 , toxic , toxic 2-12 st 00:00: Hospita 00 l Coronary Coronary Disease Active [facility] di arterioscl arterioscl 2-12 st erosis in erosis in 00:00: [facility] artery artery Diabetes Diabetes Disease Active [facility] mellitus mellitus 2 st 00:00: Hospita 00 l Essential Essential Disease Active [facility] hypertensi hypertensi 2 st on on 00:00: Hospita 00 l HLD [...] (See Breaks Meth beata ty to Comments) [address] adverse 00:00: Hospita reaction 00 l s to drug NEOMYCIN DRUG Active Other -BACITRJamir 3-25 Anderso CNZN-KAE 00:00: n YMYXNB 00 Neomycin Propensi Active Rash Method i -Bacitra ty to 08-18 st evan-Poly adverse 00:00: Hospita myxin reaction 00 l s to drug NEOMYCIN DRUG Active Med Other MD -BACITRA 2-12 Anderso EVAN-POLY 00:00: n MYXIN 00 Family History Family Member Diagnosis Comments Start Date Stop Date Source Natural father Alcohol abuse [facility] Natural father Cancer [facility] Natural father Lung cancer [facility] Natural mother Cancer [facility] mother Diabetes [facility] Natural mother Heart failure [facility] Social History Social Habit Start Date Stop Date Quantity Comments Source Gender identity 2018-11-01 Identifies as [facility] 19:52:04 male gender Hospital (finding) History of tobacco Cigarette Smoker [facility] Sexual orientation [facility] Alcohol intake 2023-02-17 2023-02-17 Current drinker [facility] dist 00:00:00 00:00:00 of alcohol Hospital (finding) History of Social 2023-02-17 2023-02-[address] function 00:00:00 00:00:00 Hospital Tobacco use and 2022-04-25 2022-04-25 Smokeless tobacco [facility] exposure 00:00:00 00:00:00 non-user Hospital Tobacco Comment 2022-04-25 2022-04-25 off/on [facility] 00:00:00 00:00:00 Hospital Cigarettes smoked 2022-04-25 2022-04-[address] current (pack per 00:00:00 00:00:00 Hospita l day) - Reported Cigarette 2022-04-25 2022-04-25 [facility] pack-years 00:00:00 00:00:00 Hospital Alcohol Comment 2016-05-27 2016-05-27 very little [facility] t 00:00:00 00:00:00 Hospital Sex Ass[birth year] At [birth year] M [facility] 00:00:00 00:00:00 Hospital Smoking Status Start Date Stop Date Source Ex-smoker 2022-04-25 00:00:00 2022-04-[facility] Start Stop Current Ordering Indication Dosage Frequency Signature Comments Components Source Medication Medication Date Date Medication? Clinician (SIG) Name Name clopidogreL 2022-0 Yes 75mg QD Take 1 Meth beata (PLAVIX) 75 8-14 tablet (75 st mg tablet 17:23: mg total) Hos mylene 24 by mouth l daily. clopidogreL 3-0 Yes 75mg QD Take 1 Meth beata (PLAVIX) 75 8-14 tablet (75 st mg tablet 17:23: mg total) Hos mylene 24 by mouth l daily. aspirin 2023-0 Yes 81mg Q2D Take 1 [facility] (ECOTRIN) 8-14 tablet (81 st 81 MG 17:10: mg total) Hospita enteric 56 by mouth l coated every tablet other day. aspirin 2023-0 Yes 81mg Q2D Take 1 [facility] (ECOTRIN) 8-14 tablet (81 st 81 MG 17:10: mg total) Hospita enteric 56 by mouth l coated every tablet other day. clopidogreL 2023-0 Yes 75mg QD Take 1 Meth beata (PLAVIX) 75 5-09 tablet (75 st mg tablet 15:03: mg total) Hos mylene 01 by mouth l daily. aspirin 2023-0 Yes 81mg QD Take 1 [facility] (ECOTRIN) 5-09 tablet (81 st 81 MG 15:03: mg total) Hospita enteric 01 by mouth l coated daily. tablet loratadine- 2022-0 2022- No 1{tbl} Q24H Take 1 M ethodi pseudoepHED -25 10-[address] rine 11:31: 00:00 mouth Hospita (Claritin-D 58 :00 daily as l 12 Hour) needed. 5-120 mg tablet extended release 12 hr loratadine- 2022-0 2022- No 1{tbl} Q24H Take 1 M ethodi pseudoepHED -25 10-[address] rine 11:31: 00:00 mouth Hospita (Claritin-D 58 :00 daily as l 12 Hour) needed. 5-120 mg tablet extended release 12 hr loratadine- 2022-0 2022- No 1{tbl} Q24H Take 1 M ethodi pseudoepHED -25 10-[address] rine 11:31: 00:00 mouth Hospita (Claritin-D 58 :00 daily as l 12 Hour) needed. 5-120 mg tablet extended release 12 hr cyanocobala 2022-0 Yes 1000ug Q30D Inject 1 [facility] min 1,000 4-21 mL (1,000 st mcg/mL 00:00: mcg total) Hospi ta injection 00 into the l shoulder, thigh, or buttocks every 30 (thirty) days. cyanocobala 2022-0 Yes 1000ug Q30D Inject 1 [facility] min 1,000 4-21 mL (1,000 st mcg/mL 00:00: mcg total) Hospi ta injection 00 into the l shoulder, thigh, or buttocks every 30 (thirty) days. cyanocobala 2022-0 Yes 1000ug Q30D Inject 1 [facility] min 1,000 4-21 mL (1,000 st mcg/mL 00:00: mcg total) Hospi ta injection 00 into the l shoulder, thigh, or buttocks every 30 (thirty) days. fluorouraci 2022-0 2022- No Q.5D Apply 1 [facility] L (EFUDEX) 09-[address] 5 % cream 00:00: 00:00 n. Hospita 00 :00 topically l 2 (two) times a day. For 2 weeks - do not use on tumor expected redness & irritation fluorouraci 2022-0 2023- No Q.5D Apply 1 [facility] L (EFUDEX) 09-[address] 5 % cream 00:00: 00:00 n. Hospita 00 :00 topically l 2 (two) times a day. For 2 weeks - do not use on tumor expected redness & irritation fluorouraci 2022-0 2023- No Q.5D Apply 1 [facility] L (EFUDEX) 09-[address] 5 % cream 00:00: 00:00 n. Hospita 00 :00 topically l 2 (two) times a day. For 2 weeks - do not use on tumor expected redness & irritation ciprofloxac 2022-0 202- No 500mg Q.5D Take 1 [facility] in (CIPRO) 09-[address] 500 MG 00:00: 00:00 (500 mg Hospita tablet 00 :00 total) by l mouth 2 (two) times a day with meals. ciprofloxac 2022-0 2022- No 500mg Q.5D Take 1 [facility] in (CIPRO) 09-[address] 500 MG 00:00: 00:00 (500 mg Hospita tablet 00 :00 total) by l mouth 2 (two) times a day with meals. ciprofloxac 2022-0 2022- No 500mg Q.5D Take 1 Me [facility] in (CIPRO) 09-[address] 500 MG 00:00: 00:00 (500 mg Hospita tablet 00 :00 total) by l mouth 2 (two) times a day with meals. metFORMIN 2022-2023- No [id number] 500mg QD Take 1 [facility] XR 09-[address] (GLUCOPHAGE 00:00: 05:59 (500 mg Ho spita -XR) 500 mg 00 :00 total) by l 24 hr mouth tablet daily with breakfast. empaglifloz 2022-2023- No [id number] 25mg QD Take 1 [facility] in 25 mg 09-09 tablet (25 st tablet 00:00: 05:59 mg total) Hospi ta 00 :00 by mouth l daily. metFORMIN 2022-0 2023- No [id number] 500mg QD Take 1 [facility] XR 09-[address] (GLUCOPHAGE 00:00: 05:59 (500 mg Ho spita -XR) 500 mg 00 :00 total) by l 24 hr mouth tablet daily with breakfast. empaglifloz 2023- No [id number] 25mg QD Take 1 [facility] in 25 mg 09-09 tablet (25 st tablet 00:00: 05:59 mg total) Hospi ta 00 :00 by mouth l daily. metFORMIN 2023- No [id number] 500mg QD Take 1 [facility] XR 09-[address] (GLUCOPHAGE 00:00: 05:59 (500 mg Ho spita -XR) 500 mg 00 :00 total) by l 24 hr mouth tablet daily with breakfast. empaglifloz 2023- No [id number] 25mg QD Take 1 [facility] in 25 mg 09-09 tablet (25 st tablet 00:00: 05:59 mg total) Hospi ta 00 :00 by mouth l daily. metFORMIN 2022- No 1000mg QD Take 1 Met [facility] (GLUCOPHAGE 09-[address] ) 1,000 mg 15:00: 00:00 (1,000 mg H ospita tablet 26 :00 total) by l mouth daily with breakfast. metFORMIN 2022- No 1000mg QD Take 1 [facility] (GLUCOPHAGE 09-[address] ) 1,000 mg 15:00: 00:00 (1,000 mg H ospita tablet 26 :00 total) by l mouth daily with breakfast. metFORMIN 2022- No 1000mg QD Take 1 Met hodi (GLUCOPHAGE 09-[address] ) 1,000 mg 15:00: 00:00 (1,000 mg H ospita tablet 26 :00 total) by l mouth daily with breakfast. metFORMIN 2022- No [id number] 1000mg QD Take 1 [facility] (GLUCOPHAGE 09-[address] ) 1,000 mg 00:00: 00:00 (1,000 mg H ospita tablet 00 :00 total) by l mouth daily with breakfast for 180 days. metFORMIN 2022- No [id number] 1000mg QD Take 1 [facility] (GLUCOPHAGE 09-[address] ) 1,000 mg 00:00: 00:00 (1,000 mg H ospita tablet 00 :00 total) by l mouth daily with breakfast for 180 days. metFORMIN 2022- No [id number] 1000mg QD Take 1 [facility] (GLUCOPHAGE 09-05 [...] 00 :00 total) by l mouth daily. spironolact 2023- No 50mg QD Take 1 [facility] one 09-04 tablet (50 st (ALDACTONE) 00:00: 05:59 mg total) Hospita 50 MG 00 :00 by mouth l tablet daily. valsartan 2023- No 160mg QD Take 1 Meth beata (DIOVAN) 09-[address] 160 MG 00:00: 05:59 (160 mg Hospita tablet 00 :00 total) by l mouth daily. spironolact 2023- No 50mg QD Take 1 [...] l tablet mouth daily for 3 days. levoFLOXaci 3-0 2023- No 500mg QD Take 1 [facility] n 3- 03-[address] (Levaquin) 00:00: 05:59 (500 mg Hos mylene 500 MG 00 :00 total) by l tablet mouth daily for 3 days. levoFLOXaci 3-0 2023- No 500mg QD Take 1 [facility] n 3- 03-[address] (Levaquin) 00:00: 05:59 (500 mg Hos mylene 500 MG 00 :00 total) by l tablet mouth daily for 3 days. torsemide 2022-0 2024- No 20mg Q.5D Take 1 Metho di (DEMADEX) 09-03 tablet (20 st 20 MG 00:00: 05:59 mg total) Hospit a tablet 00 :00 by mouth 2 l (two) times a day. sildenafil, 2022-0 2024- No 20mg Q.5D Take 1 [facility] for 09-03 tablet (20 st pulmonary 00:00: 05:59 mg total) Ho spita hypertensio 00 :00 by mouth 2 l n, (two) (REVATIO) times a 20 mg day. tablet metoprolol 2022-0 2024- No 25mg Q.5D Take 1 Meth beata succinate 09-03- tablet (25 st XL 00:00: 05:59 mg total) Hospita (TOPROL-XL) 00 :00 by mouth 2 l 25 mg 24 hr (two) tablet times a day. torsemide 2022-0 2024- No 20mg Q.5D Take 1 Metho di (DEMADEX) 09-03- tablet (20 st 20 MG 00:00: 05:59 mg total) Hospit a tablet 00 :00 by mouth 2 l (two) times a day. sildenafil, 2022-0 2024- No 20mg Q.5D Take 1 [facility] for 09-03- tablet (20 st pulmonary 00:00: 05:59 mg total) Ho spita hypertensio 00 :00 by mouth 2 l n, (two) (REVATIO) times a 20 mg day. tablet metoprolol 2022-0 2024- No 25mg Q.5D Take 1 Meth beata succinate 2-28 02-29 tablet (25 st XL 00:00: 05:59 mg total) Hospita (TOPROL-XL) 00 :00 by mouth 2 l 25 mg 24 hr (two) tablet times a day. torsemide 2023-0 2024- No 20mg Q.5D Take 1 Metho di (DEMADEX) 09-03 tablet (20 st 20 MG 00:00: 05:59 mg total) Hospit a tablet 00 :00 by mouth 2 l (two) times a day. sildenafil, 2022-0 2024- No 20mg Q.5D Take 1 [facility] for 09-03 tablet (20 st pulmonary 00:00: 05:59 mg total) Ho spita hypertensio 00 :00 by mouth 2 l n, (two) (REVATIO) times a 20 mg day. tablet metoprolol 2022-0 2024- No 25mg Q.5D Take 1 Meth beata succinate 09-03 tablet (25 st XL 00:00: 05:59 mg total) Hospita (TOPROL-XL) 00 :00 by mouth 2 l 25 mg 24 hr (two) tablet times a day. nystatin 2023-0 2023- No Q.5D Apply [facility] (MYCOSTATIN 09-03-[address] ) 100,000 00:00: 00:00 2 (two) [facility] unit/gram 00 :00 times a l powder day. nystatin 2023-0 2023- No Q.5D Apply [facility] (MYCOSTATIN 09-03-[address] ) 100,000 00:00: 00:00 2 (two) [facility] unit/gram 00 :00 times a l powder day. nystatin 2023-0 2023- No Q.5D Apply [facility] (MYCOSTATIN 09-03-[address] ) 100,000 00:00: 00:00 2 (two) [facility] unit/gram 00 :00 times a l powder day. loratadine 2023-0 2023- No 10mg QD Take 10 mg [facility] (CLARITIN) 08-29- by mouth st 10 mg 11:34: 00:00 daily. Hospita tablet 22 :00 l loratadine 2023-0 2023- No 10mg QD Take 10 mg [facility] (CLARITIN) 2-23 02-[address] 10 mg 11:34: 00:00 daily. Hospita tablet 22 :00 l loratadine 2022- No 10mg QD Take 10 mg [facility] (CLARITIN) 08-[address] 10 mg 11:34: 00:00 daily. Hospita tablet 22 :00 l multivitami 2022- No 1{capsu QD Take 1 Methodi n capsule 08-29 le} capsule by st 11:34: 00:00 mouth Hospita 11 :00 daily. l multivitami 2022- No 1{capsu QD Take 1 Methodi n capsule 08-29 le} capsule by st 11:34: 00:00 mouth Hospita 11 :00 daily. l multivitami 2022- No 1{capsu QD Take 1 Methodi n capsule 08-29 le} capsule by st 11:34: 00:00 mouth Hospita 11 :00 daily. l rosuvastati 2022-0 Yes QD nightly. Me [facility]odi n (CRESTOR) 2-13 st 10 mg 00:00: Hospita tablet 00 l rosuvastati 2022-0 Yes QD nightly. Me thodi n (CRESTOR) 2-13 st 10 mg 00:00: Hospita tablet 00 l rosuvastati 2022-0 Yes Method i n (CRESTOR) 2-13 st 10 mg 00:00: Hospita tablet 00 l gentamicin 2022- No Q.5D Apply 1 [facility] (GARAMYCIN) 08-19 applicatio s t 0.1 % 00:00: 00:00 n. Hospita ointment 00 :00 topically l 2 (two) times a day. Mix with Naftin - apply to affected area on the foot twice daily x 2 weeks gentamicin 2022- No Q.5D Apply 1 [facility] (GARAMYCIN) 08-19 applicatio s t 0.1 % 00:00: 00:00 n. Hospita ointment 00 :00 topically l 2 (two) times a day. Mix with Naftin - apply to affected area on the foot twice daily x 2 weeks gentamicin 2022022- No Q.5D Apply 1 [facility] (GARAMYCIN) 08-19 applicatio s t 0.1 % 00:00: 00:00 n. Hospita ointment 00 :00 topically l 2 (two) times a day. Mix with Naftin - apply to affected area on the foot twice daily x 2 weeks ketoconazol 0 Yes QD Apply 1 Met hodi e (NIZORAL) 07-[address] 2 % cream 00:00: n Hospita 00 topically l daily. Apply to left foot ketoconazol 0 Yes QD Apply 1 Met hodi e (NIZORAL) 07-[address] 2 % cream 00:00: n Hospita 00 topically l daily. Apply to left foot ketoconazol 0 Yes QD Apply 1 Met hodi e (NIZORAL) 07-[address] 2 % cream 00:00: n Hospita 00 topically l daily. Apply to left foot terbinafine 2022- No 250mg QD Take 1 [facility] HCL 07-[address] (LamiSIL) 00:00: 00:00 (250 mg [facility] 250 mg 00 :00 total) by l tablet mouth daily. terbinafine 2022- No 250mg QD Take 1 [facility] HCL 07-[address] (LamiSIL) 00:00: 00:00 (250 mg [facility] 250 mg 00 :00 total) by l tablet mouth daily. terbinafine 0 2022- No 250mg QD Take 1 [facility] HCL 07-[address] (LamiSIL) 00:00: 00:00 (250 mg [facility] 250 mg 00 :00 total) by l tablet mouth daily. mupirocin 2022-0 2022- No QD Apply 1 [facility] (BACTROBAN) 07-25 applicatio s t 2 % 00:00: 00:00 n Hospita ointment 00 :00 topically l daily. Left foot mupirocin 2022-0 2022- No QD Apply 1 [facility] (BACTROBAN) 07-25 applicatio s t 2 % 00:00: 00:00 n Hospita ointment 00 :00 topically l daily. Left foot mupirocin 2022- No QD Apply 1 [facility] be[facility] (BACTROBAN) 07-25 applicatio s t 2 % 00:00: 00:00 n Hospita ointment 00 :00 topically l daily. Left foot levoFLOXaci 2022- No 750mg QD Take 1.5 Method[facility] n 07-[address] (Levaquin) 00:00: 00:00 (750 mg Hos mylene 500 MG 00 :00 total) by l tablet mouth daily. levoFLOXaci 2022- No 750mg QD Take 1.5 Methodi n 07-[address] (Levaquin) 00:00: 00:00 (750 mg Hos mylene 500 MG 00 :00 total) by l tablet mouth daily. levoFLOXaci 2022- No 750mg QD Take 1.5 Methodi n 07-[address] (Levaquin) 00:00: 00:00 (750 mg Hos mylene 500 MG 00 :00 total) by l tablet mouth daily. clindamycin 2022- No 150mg [id number] Take 1 [facility] (Cleocin 07-17 [id number] capsule s t HCL) 150 MG 00:00: 05:59 3D (150 mg Ho spita capsule 00 :00 total) by l mouth 3 (three) times a day for 3 days. clindamycin 2022- No 150mg Q.[id number] Take 1 [facility] (Cleocin 07-17 [id number] capsule s t HCL) 150 MG 00:00: 05:59 3D (150 mg Ho spita capsule 00 :00 total) by l mouth 3 (three) times a day for 3 days. clindamycin 2022- No 150mg Q.[id number] Take 1 [facility] (Cleocin 07-17 [id number] capsule s t HCL) 150 MG 00:00: 05:59 3D (150 mg Ho spita capsule 00 :00 total) by l mouth 3 (three) times a day for 3 days. metoprolol 2021-07- No Q.5D Take by [facility] succinate 08-[address] XL 00:00: 00:00 (two) Hospita (TOPROL-XL) 00 :00 times a l 50 mg 24 hr day. tablet metoprolol 2021-07- No Q.5D Take by [facility] succinate 08-[address] XL 00:00: 00:00 (two) Hospita (TOPROL-XL) 00 :00 times a l 50 mg 24 hr day. tablet metoprolol 2021-07- No Q.5D Take by [facility] succinate 08-[address] XL 00:00: 00:00 (two) Hospita (TOPROL-XL) 00 :00 times a l 50 mg 24 hr day. tablet tamsulosin 2021-07 Yes .4mg Q.5D Take 1 [facility]o di (FLOMAX) 0-[address] 0.4 mg 00:00: (0.4 mg Hospita capsule 00 total) by l mouth 2 (two) times a day. tamsulosin 2021-07 Yes .4mg Q.5D Take 1 [facility]o di (FLOMAX) 0-[address] 0.4 mg 00:00: (0.4 mg Hospita capsule 00 total) by l mouth 2 (two) times a day. tamsulosin 2021-07 Yes .4mg QD Take 1 Metho di (FLOMAX) 0-[address] 0.4 mg 00:00: (0.4 mg Hospita capsule 00 total) by l mouth every evening. furosemide 2021-07- No 40mg Q.5D Take 1 [facility] beata (LASIX) 40 0-20 -28 tablet (40 st mg tablet 00:00: 00:00 mg total) Ho spita 00 :00 by mouth 2 l (two) times a day. furosemide 2021-07- No 40mg Q.5D Take 1 Meth beata (LASIX) 40 0-20 02-28 tablet (40 st mg tablet 00:00: 00:00 mg total) Ho spita 00 :00 by mouth 2 l (two) times a day. furosemide 2021-07- No 40mg Q.5D Take 1 Meth beata (LASIX) 40 0-20 -28 tablet (40 st mg tablet 00:00: 00:00 mg total) Ho spita 00 :00 by mouth 2 l (two) times a day. doxycycline 2021-07- No 100mg Q.5D Take 1 Me thodi [...] 800-160 times a mg per day. tablet doxycycline 2021-07 No 100mg Q.5D Take 1 [facility] (VIBRAMYCIN 0-15 10-[address] ) 100 MG 18:26: 00:00 (100 mg Hospi ta capsule 02 :00 total) by l mouth 2 (two) times a day. Starting 04/14 for 10 days. sulfamethox 2021-07 No 1{tbl} Q.5D Take 1 M ethodi azole-trime 0-15 10-[address] thoprim 18:26: 00:00 mouth 2 Hospit a (BACTRIM 02 :00 (two) l DS) 800-160 times a mg per day. tablet doxycycline 2021-07 No 100mg Q.5D Take 1 [...] times a mg per day. tablet benzonatate 2021-07 No 200mg Take 2 [facility] (TESSALON) 0-15 10-[address] 100 MG 18:26: 00:00 (200 mg Hospita capsule 02 :00 total) by l mouth as needed for cough. benzonatate 2021-07- No 200mg Take 2 [facility] (TESSALON) 0-15 10-[address] 100 MG 18:26: 00:00 (200 mg Hospita capsule 02 :00 total) by l mouth as needed for cough. benzonatate 2021-07 No 200mg Take 2 [facility] (TESSALON) 0-15 10-[address] 100 MG 18:26: 00:00 (200 mg Hospita capsule 02 :00 total) by l mouth as needed for cough. collagenase 2021-07- No QD Apply Meth beata (SANTYL) 0-15 11-[address] ointment 00:00: 05:59 daily for Hos mylene 00 :00 30 days. l collagenase 2021-07- No QD Apply Meth beata (SANTYL) 0-15 11-[address] ointment 00:00: 05:59 daily for Hos mylene 00 :00 30 days. l collagenase 2021-07- No QD Apply Meth beata (SANTYL) 0-15 11-[address] ointment 00:00: 05:59 daily for Hos mylene 00 :00 30 days. l simvastatin 2021-07 No 40mg QD Take 40 mg [facility] (ZOCOR) 40 0-14 10-[address] mg tablet 18:26: 00:00 nightly. Hos mylene 40 :00 l simvastatin 2021-07- No 40mg QD Take 40 mg [facility] (ZOCOR) 40 0-14 10-[address] mg tablet 18:26: 00:00 nightly. Hos mylene 40 :00 l simvastatin 2021-07- No 40mg QD Take 40 mg [facility] (ZOCOR) 40 0-14 10-[address] mg tablet 18:26: 00:00 nightly. Hos mylene 40 :00 l rosuvastati 2021-07- No 10mg QD Take 1 Met hodi n (CRESTOR) 0-14 11-14 tablet (10 s t 10 mg 00:00: 05:59 mg total) Hospit a tablet 00 :00 by mouth l nightly for 30 days. clotrimazol 2021-07- No Q.5D Apply Meth be[facility] e 0-14 11-[address] (LOTRIMIN) 00:00: 05:59 2 (two) Hos mylene 1 % cream 00 :00 times a l day for 30 days. betamethaso 2021-07- No Q.5D Apply Meth beata ne 0-14 11-[address] dipropionat 00:00: 05:59 2 (two) Ho spita e 00 :00 times a l (DIPROLENE) day for 30 0.05 % days. cream rosuvastati 2021-07- No 10mg QD Take 1 Met hodi n (CRESTOR) 0-14 11-14 tablet (10 s t 10 mg 00:00: 05:59 mg total) Hospit a tablet 00 :00 by mouth l nightly for 30 days. clotrimazol 2021-07- No Q.5D Apply Meth beata e 0-14 11-[address] (LOTRIMIN) 00:00: 05:59 2 (two) Hos mylene 1 % cream 00 :00 times a l day for 30 days. betamethaso 2021-07- No Q.5D Apply Meth beata ne 0-14 11-[address] dipropionat 00:00: 05:59 2 (two) Ho spita e 00 :00 times a l (DIPROLENE) day for 30 0.05 % days. cream rosuvastati 2021-07- No 10mg QD Take 1 Met [facility]odi n (CRESTOR) 0-14 11-14 tablet (10 s t 10 mg 00:00: 05:59 mg total) Hospit a tablet 00 :00 by mouth l nightly for 30 days. clotrimazol 2021-07- No Q.5D Apply Meth be[facility] e 0-14 11-[address] (LOTRIMIN) 00:00: 05:59 2 (two) Hos mylene 1 % cream 00 :00 times a l day for 30 days. betamethaso 2021-07- No Q.5D Apply Meth [facility] ne 0-14 11-[address] dipropionat 00:00: 05:59 2 (two) Ho spita e 00 :00 times a l (DIPROLENE) day for 30 0.05 % days. cream benzonatate 2021-07- No 100mg [id number] Take 1 [facility] (TESSALON) 0-14 10-[id number] 100 MG 00:00: 04:59 3D (100 mg Hospita capsule 00 :00 total) by l mouth 3 (three) times a day as needed for cough for up to 10 days. benzonatate 2021-07- No 100mg [id number] Take 1 [facility] (TESSALON) 0-14 10-[id number] 100 MG 00:00: 04:59 3D (100 mg Hospita capsule 00 :00 total) by l mouth 3 (three) times a day as needed for cough for up to 10 days. benzonatate 2021-07- No 100mg [id number] Take 1 [facility] (TESSALON) 0-14 10-[id number] 100 MG 00:00: 04:59 3D (100 mg Hospita capsule 00 :00 total) by l mouth 3 (three) times a day as needed for cough for up to 10 days. ciprofloxac 2021-07 No 500mg Q.5D Take 1 Me [facility]odi in (CIPRO) 0-19 04-[address] 500 MG 00:00: 00:00 (500 mg Hospita tablet 00 :00 total) by l mouth 2 (two) times a day for 6 days. sulfamethox 2021-07 No 1{tbl} Q.5D Take 1 M ethodi azole-trime 0-14 -[address] thoprim 00:00: 04:59 mouth 2 Hospit a (BACTRIM 00 :00 (two) l DS) 800-160 times a mg per day for 6 tablet days. ciprofloxac 2021-07 No 500mg Q.5D Take 1 [facility] in (CIPRO) 0-14 10-[address] 500 MG 00:00: 00:00 (500 mg Hospita tablet 00 :00 total) by l mouth 2 (two) times a day for 6 days. sulfamethox 2021-07- No 1{tbl} Q.5D Take 1 M ethodi azole-trime 0-14 10-[address] thoprim 00:00: 04:59 mouth 2 Hospit a (BACTRIM 00 :00 (two) l DS) 800-160 times a mg per day for 6 tablet days. ciprofloxac 2021-07- No 500mg Q.5D Take 1 [facility] in (CIPRO) 0-14 10-[address] 500 MG 00:00: 00:00 (500 mg Hospita tablet 00 :00 total) by l mouth 2 (two) times a day for 6 days. sulfamethox 2021-07- No 1{tbl} Q.5D Take [...] every 12 (twelve) hours for 6 days. minocycline 2021-07- No 100mg Q12H Take 1 Me [facility] (MINOCIN) 0-14 10-[address] 100 MG 00:00: 00:00 (100 mg Hospita capsule 00 :00 total) by l mouth every 12 (twelve) hours for 6 days. minocycline 2021-07- No 100mg Q12H Take 1 Me [facility] (MINOCIN) 0-14 10-[address] 100 MG 00:00: 00:00 (100 mg Hospita capsule 00 :00 total) by l mouth every 12 (twelve) hours for 6 days. metFORMIN 2021- No 1000mg Q.5D Take 1 Met hodi (GLUCOPHAGE 9- 10-[address] ) 1,000 mg 00:00: 00:00 (1,000 mg H ospita tablet 00 :00 total) by l mouth 2 (two) times a day with meals. metFORMIN 2021- No 1000mg Q.5D Take 1 Met hodi (GLUCOPHAGE 9-26 04- tablet st ) 1,000 mg 00:00: 00:00 (1,000 mg H ospita tablet 00 :00 total) by l mouth 2 (two) times a day with meals. metFORMIN 2021-2021- No 1000mg Q.5D Take 1 Met hodi (GLUCOPHAGE -26 04- tablet st ) 1,000 mg 00:00: 00:00 (1,000 mg H ospita tablet 00 :00 total) by l mouth 2 (two) times a day with meals. diclofenac 2021-2021- No 50mg Q.5D Take 1 [facility] (VOLTAREN) -24 04- tablet (50 st 50 MG EC 00:00: 00:00 mg total) Hos mylene tablet 00 :00 by mouth 2 l (two) times a day. PRN diclofenac 2021-0 2021- No 50mg Q.5D Take 1 [facility] (VOLTAREN) -24 04- tablet (50 st 50 MG EC 00:00: 00:00 mg total) Hos mylene tablet 00 :00 by mouth 2 l (two) times a day. PRN diclofenac 2021-0 2021- No 50mg Q.5D Take 1 [facility] (VOLTAREN) 03-25- tablet (50 st 50 MG EC 00:00: 00:00 mg total) Hos mylene tablet 00 :00 by mouth 2 l (two) times a day. PRN furosemide 2021-2021- No 40mg QD Take 1 [facility] (LASIX) 40 -17 10-20 tablet (40 st mg tablet 00:00: 04:59 mg total) Ho spita 00 :00 by mouth l daily for 30 days. metoprolol 2021-0 2021- No 25mg Q.5D Take 1 [facility] succinate 9-17 10-20 tablet (25 st XL 00:00: 04:59 mg total) Hospita (TOPROL-XL) 00 :00 by mouth 2 l 25 mg 24 hr (two) tablet times a day for 30 days. spironolact 2021-0 2021- No 50mg QD Take 1 Met h[facility] one 9-17 10-20 tablet (50 st (ALDACTONE) 00:00: 04:59 mg total) Hospita 50 MG 00 :00 by mouth l tablet daily for 30 days. tamsulosin 2021-2021- No .4mg QD Take 1 [facility] (FLOMAX) 9-17 10-[address] 0.4 mg 00:00: 04:59 (0.4 mg Hospita capsule 00 :00 total) by l mouth daily with dinner for 30 days. furosemide 2021-2021- No 40mg QD Take 1 [facility] (LASIX) 40 9-17 10-20 tablet (40 st mg tablet 00:00: 04:59 mg total) Ho spita 00 :00 by mouth l daily for 30 days. metoprolol 2021-2021- No 25mg Q.5D Take 1 Meth beata [...] l tablet daily for 30 days. tamsulosin 2021-2021- No .4mg QD Take 1 [facility] (FLOMAX) 9-17 10-[address] 0.4 mg 00:00: 04:59 (0.4 mg Hospita capsule 00 :00 total) by l mouth daily with dinner for 30 days. furosemide 2021- No 40mg QD Take 1 [facility] (LASIX) 40 9-17 10-20 tablet (40 st mg tablet 00:00: 04:59 mg total) Ho spita 00 :00 by mouth l daily for 30 days. metoprolol 2021-2021- No 25mg Q.5D Take 1 Meth beata [...] .4mg QD Take 1 [facility] (FLOMAX) 03-[address] 0.4 mg 00:00: 04:59 (0.4 mg Hospita capsule 00 :00 total) by l mouth daily with dinner for 30 days. collagenase 2021- No QD Apply [facility] (SANTYL) 03-23- topically st ointment 00:00: 00:00 daily for Hos mylene 00 :00 30 days. l collagenase 2021-2021- No QD Apply [facility] (SANTYL) 03-23- topically st ointment 00:00: 00:00 daily for Hos mylene 00 :00 30 days. l collagenase 2021-0 2021- No QD Apply [facility] (SANTYL) 03-[address] ointment 00:00: 00:00 daily for Hos mylene 00 :00 30 days. l furosemide 2021- No 40mg QD Take 1 [facility] (Lasix) 40 03-13 tablet (40 st mg tablet 00:00: 00:00 mg total) Ho spita 00 :00 by mouth l daily. potassium 2021- No 20meq QD Take 1 [facility] chloride 03-13 tablet (20 st (K-DUR) 20 00:00: 00:00 mEq total) Hospita MEQ CR 00 :00 by mouth l tablet daily. furosemide 2021- No 40mg QD Take 1 [facility] (Lasix) 40 03-13 tablet (40 st mg tablet 00:00: 00:00 mg total) Ho spita 00 :00 by mouth l daily. potassium 2021-2021- No 20meq QD Take 1 [facility] chloride 03-13 tablet (20 st (K-DUR) 20 00:00: 00:00 mEq total) Hospita MEQ CR 00 :00 by mouth l tablet daily. benzonatate 2021- No as needed. [facility] (TESSALON) 3-24 04-14 st 200 MG 00:00: 00:00 Hospita capsule 00 :00 l benzonatate 2021- No as needed. [facility] (TESSALON) 3- 10- st 200 MG 00:00: 00:00 Hospita capsule 00 :00 l benzonatate 2021- No as needed. [facility] (TESSALON) 3-29 04- st 200 MG 00:00: 00:00 Hospita capsule 00 :00 l NIFEdipine 2022- No 60mg QD Take 1 [facility] ER 07-23 tablet (60 st (PROCARDIA- 00:00: 00:00 mg total) Hospita XL) 60 MG 00 :00 by mouth l 24 hr daily. tablet NIFEdipine 2022- No 60mg QD Take 1 [facility] ER 07-23 tablet (60 st (PROCARDIA- 00:00: 00:00 mg total) Hospita XL) 60 MG 00 :00 by mouth l 24 hr daily. tablet NIFEdipine 2022- No 60mg QD Take 1 [facility] ER 07-23 tablet (60 st (PROCARDIA- 00:00: 00:00 mg total) Hospita XL) 60 MG 00 :00 by mouth l 24 hr daily. tablet metoprolol 2021- No TAKE 1 [facility] succinate 07-23 TABLET(50 st XL 00:00: 00:00 MG) BY Hospita (TOPROL-XL) 00 :00 MOUTH l 50 mg 24 hr TWICE tablet DAILY metoprolol No TAKE 1 [facility] succinate 07-23 TABLET(50 st XL 00:00: 00:00 MG) BY Hospita (TOPROL-XL) 00 :00 MOUTH l 50 mg 24 hr TWICE tablet DAILY cyanocobala 2019-07- No INJECT Met hodi min 1,000 2- 04-21 1,000MCG st mcg/mL 00:00: 00:00 IN THE Hospita injection 00 :00 MUSCLE l EVERY 30 DAYS cyanocobala 2019-07- No INJECT Met hodi min 1,000 2-29 04-21 1,000MCG st mcg/mL 00:00: 00:00 IN THE Hospita injection 00 :00 MUSCLE l EVERY 30 DAYS cyanocobala 2019-3- No INJECT Met hodi min 1,000 229 -21 1,000MCG st mcg/mL 00:00: 00:00 IN THE Hospita injection 00 :00 MUSCLE l EVERY 30 DAYS Immunizations Ordered Immunization Filled Date Status Comments Sour ce Name Immunization Name Tdap 2022-04-26 Completed [facility] 00:00:00 Hospital Tdap 2022-04-26 Completed [facility] 00:00:00 [facility] FLUZONE HIGH-DOSE PF 2022-04-19 Completed [facility] odist 00:00:00 [facility] FLUZONE HIGH-DOSE PF 2022-04-19 Completed Meth odist 00:00:00 [facility] PFIZER COVID-19 MRNA 2021-06-19 Completed [facility] VACCINATION 00:00:00 [facility] PFIZER COVID-19 MRNA 2021-06-19 Completed [facility] odist VACCINATION 00:00:00 [facility] FLUZONE HIGH-DOSE PF 2021-04-05 Completed Meth odist 00:00:00 [facility] FLUZONE HIGH-DOSE PF 2021-04-05 Completed Meth odist 00:00:00 [facility] PFIZER COVID-19 MRNA 2020-08-18 Completed Meth odist VACCINATION 00:00:00 [facility] PFIZER COVID-19 MRNA 2020-08-18 Completed [facility] odist VACCINATION 00:00:00 [facility] PFIZER COVID-19 MRNA 2020-07-28 Completed Meth odist VACCINATION 00:00:00 [facility] PFIZER COVID-19 MRNA 2020-07-28 Completed Meth odist VACCINATION 00:00:00 [facility] Zoster Vaccine 2020-06-23 Completed [facility] Recombinant 00:00:00 [facility] Zoster Vaccine 2020-06-23 Completed [facility] Recombinant 00:00:00 [facility] Zoster Vaccine 2020-04-21 Completed [facility] Recombinant 00:00:00 [facility] Zoster Vaccine 2020-04-21 Completed [facility] Recombinant 00:00:00 [facility] FLUZONE HIGH-DOSE PF 2020-04-17 Completed Meth odist 00:00:00 [facility] FLUZONE HIGH-DOSE PF 2020-04-17 Completed Meth odist 00:00:00 [facility] FLUZONE HIGH-DOSE PF 2019-04-07 Completed Meth odist 00:00:00 [facility] FLUZONE HIGH-DOSE PF 2019-04-07 Completed Meth odist 00:00:00 [facility] Pneumococcal 2018-05-25 Completed [facility] Polysaccharide 00:00:00 Hospital Pneumococcal 2018-05-25 Completed [facility] Polysaccharide 00:00:00 Hospital FLUZONE HIGH-DOSE PF 2018-04-20 Completed [facility] 00:00:00 Hospital FLUZONE HIGH-DOSE PF 2018-04-20 Completed [facility] 00:00:00 Hospital FLUZONE HIGH-DOSE PF 2017-04-14 Completed [facility] odist 00:00:00 Hospital FLUZONE HIGH-DOSE PF 2017-04-14 Completed [facility] odist 00:00:00 Hospital FLUZONE HIGH-DOSE PF 2016-06-20 Completed [facility] odist 00:00:00 Hospital FLUZONE HIGH-DOSE PF 2016-06-20 Completed [facility] od[facility] 00:00:00 Hospital Pneumococcal 2015-09-04 Completed [facility] Conjugate 13-Valent 00:00:00 Hospi hernando Pneumococcal 2015-09-04 Completed [facility] Conjugate 13-Valent 00:00:00 Hospi hernando FLUZONE HIGH-DOSE PF 2015-05-03 Completed [facility] odist 00:00:00 Hospital FLUZONE HIGH-DOSE PF 2015-05-03 Completed [facility] odist 00:00:00 Hospital Influenza Trivalent 2013-05-10 Completed [facility] dist 00:00:00 Hospital Influenza Trivalent 2013-05-10 Completed [facility] 00:00:00 Hospital Zoster 2011-07-08 Completed [facility] 00:00:00 Hospital Zoster 2011-07-08 Completed [facility] 00:00:00 [facility] FLUZONE HIGH-DOSE PF Unknown Completed [facility] odist [facility] FLUZONE HIGH-DOSE PF Unknown [facility] Pneumococcal Unknown Completed [facility] Conjugate 13-Valent Hospi hernando FLUZONE HIGH-DOSE PF Unknown Completed [facility] odist Hospital FLUZONE HIGH-DOSE PF Unknown Completed [facility] odist Hospital Pneumococcal Unknown Completed [facility] Polysaccharide Hospital FLUZONE HIGH-DOSE PF Unknown Completed [facility] odist [facility] FLUZONE HIGH-DOSE PF Unknown Completed [facility] odist Hospital Zoster Vaccine Unknown Completed [facility] Recombinant Hospital PFIZER COVID-19 MRNA Unknown Completed [facility] odist VACCINATION Hospital PFIZER COVID-19 MRNA Unknown Completed [facility] odist VACCINATION [facility] PFIZER COVID-19 MRNA Unknown Completed [facility] odist VACCINATION [facility] Influenza Trivalent Unknown Completed [facility] FLUZONE HIGH-DOSE PF Unknown Completed [facility] odist [facility] Zoster Vaccine Unknown Completed [facility] Recombinant [facility] FLUZONE HIGH-DOSE PF Unknown Completed [facility] Hospital Tdap Unknown Completed [facility] Vital Signs Vital Name Observation Time Observation Value Comments Source Systolic blood 2023-02-19 21:04:00 110 mm[Hg] manual [facility] Hospital pressure Diastolic blood 2023-02-19 21:04:00 58 mm[Hg] manual [facility] Hospital pressure Heart rate 2023-02-19 20:47:16 54 /min [facility] Body temperature 2023-02-19 20:47:16 36.5 Elsy [facility] Respiratory rate 2023-02-19 20:47:16 20 /min [facility] Body height 2023-02-19 20:47:16 200.7 cm [facility] Body weight 2023-02-19 20:47:16 115.667 kg [facility] BMI 2023-02-19 20:47:16 28.73 kg/m2 [facility] Oxygen saturation in 2023-02-19 20:47:16 96 /min [facility] Arterial blood by Pulse oximetry Body height 2023-01-30 15:54:00 200.7 cm [facility] Body weight 2023-01-30 15:54:00 116 kg [facility] BMI 2023-01-30 15:54:00 28.81 kg/m2 [facility] Systolic blood 2022-11-12 20:00:00 91 mm[Hg] Method [facility] pressure Diastolic blood 2022-11-12 20:00:00 56 mm[Hg] [facility] pressure Heart rate 2022-11-12 20:00:00 53 /min [facility] Respiratory rate 2022-11-12 20:00:00 18 /min [facility] Oxygen saturation in 2022-11-12 20:00:00 95 /min [facility] Arterial blood by Pulse oximetry Body temperature 2022-10-25 16:00:00 36.56 Elsy [facility] Procedures Procedure Date / Time Performing Clinician Source Performed HEMOGLOBIN A1C 2023-02-19 21:18:00 Kelley Dick [facility] CBC WITH PLATELET AND 2023-02-19 21:18:00 Kelley Dick [facility] DIFFERENTIAL COMPREHENSIVE METABOLIC 2023-02-19 21:18:00 Kelley Dick [facility] PANEL ESTIMATED GFR 2023-02-19 21:18:00 [place], Kelley Tatum Waldrop [facility] MANUAL DIFFERENTIAL 2023-02-19 21:18:00 Kelley Dick [facility] ECG PRE/POST OP 2023-02-19 20:56:59 [place] [facility] DECOMPRESSION, ULNAR 2023-02-14 15:35:00 [facility] US ABDOMINAL WITH LIVER 2022-10-15 15:40:00 Carmen Kwan [facility] ELASTOGRAPHY MD DEBRIDEMENT 2022-09-25 20:00:00 [facility] SUBCUTANEOUS TISSUE 20 SQ CM/< MD DEBRIDEMENT 2022-09-18 19:30:00 [facility]ital SUBCUTANEOUS TISSUE 20 SQ CM/< POC GLYCOSYLATED 2022-09-05 20:43:29 [facility] HEMOGLOBIN (HGB A1C) POC GLUCOSE 2022-09-03 13:38:00 [facility] CBC WITH PLATELET AND 2022-09-03 11:40:00 Roshni [facility] DIFFERENTIAL COMPREHENSIVE METABOLIC 2022-09-03 11:40:00 BarakatJared hanna [facility] PANEL MAGNESIUM LEVEL 2022-09-03 11:40:00 Barakat, Jared Cruz [facility] ESTIMATED GFR 2022-09-03 11:40:00 Barakat, Jared Cruz [facility] POC GLUCOSE 2022-09-03 03:27:00 Barakat, Jaredlove Cruz [facility] POC GLUCOSE 2022-09-02 23:56:00 Barakat, Jaredlove Cruz [facility] POC GLUCOSE 2022-09-02 18:22:00 Barakat, Jared Anthony [facility] POC GLUCOSE 2022-09-02 13:18:00 Barakat, Jaredlove Cruz [facility] CBC WITH PLATELET AND 2022-09-02 10:53:00 [facility]ENSIVE [facility]ABOL[facility] 2022-09-02 10:53:00 Barakat, Jared Cruz Met [facility] PANEL MAGNESIUM LEVEL 2022-09-02 10:53:00 Barakat, Jared Anthony [facility] ESTIMATED GFR 2022-09-02 10:53:00 Barakat, Jared Anthony [facility] POC GLUCOSE 2022-09-01 23:53:00 Barakat, Jared Anthony [facility] POC GLUCOSE 2022-09-01 18:00:00 Barakat, Jared Anthony [facility] POC GLUCOSE 2022-09-01 13:38:00 Barakat, Jared Anthony [facility] B NATRIURETIC PEPTIDE 2022-09-01 12:50:00 Barakat, [facility] CBC WITH PLATELET AND 2022-09-01 12:50:00 Barakat, [facility] DIFFERENTIAL COMPREHENSIVE METABOLIC 2022-09-01 12:50:00 Barakat, Jared Cruz Met [facility] PANEL ESTIMATED GFR 2022-09-01 12:50:00 Barakat, Jared Cruz [facility] MAGNESIUM LEVEL 2022-09-01 12:50:00 Barakat, Jared Anthony [facility] POC GLUCOSE 2022-09-01 02:52:00 Barakat, Jared Anthony [facility] POC GLUCOSE 2022-09-01 00:10:00 Barakat, Jaredlove Cruz [facility] POC GLUCOSE 2022-08-31 18:34:00 Barakat, Jared Anthony [facility] POC GLUCOSE 2022-08-31 13:48:00 Barakat, Jared Anthony [facility] CBC WITH PLATELET AND 2022-08-31 10:33:00 Barakat, [facility] DIFFERENTIAL COMPREHENSIVE METABOLIC 2022-08-31 10:33:00 Barakat, Jared Cruz Met [facility] PANEL B NATRIURETIC PEPTIDE 2022-08-31 10:33:00 Barakat, [facility] ESTIMATED GFR 2022-08-31 10:33:00 Barakat, Jared Cruz [facility] POC GLUCOSE 2022-08-31 02:40:00 Barakat, [facility] ospital POC GLUCOSE 2022-08-30 18:31:00 [facility] 2022-08-30 14:42:00 Barakat, [facility] ospital CBC WITH PLATELET AND 2022-08-30 10:52:00 Barakat, [facility] DIFFERENTIAL COMPREHENSIVE METABOLIC 2022-08-30 10:52:00 Barakat, [facility] PANEL B NATRIURETIC PEPTIDE 2022-08-30 10:52:00 Barakat, [facility] ESTIMATED GFR 2022-08-30 10:52:00 Barakat, Jared [facility] ospital POC GLUCOSE 2022-08-30 03:01:00 Barakat, [facility] ospital POC GLUCOSE 2022-08-29 23:26:00 Barakat, [facility] ospital INFLUENZA ANTIGEN TEST, 2022-08-29 21:37:00 Barakat, [facility] REFLEX NEGATIVE TO RPP RESPIRATORY PATHOGEN 2022-08-29 21:37:00 Barakat, [facility] PANEL WITH COVID-19 RT-PCR URINALYSIS SCREEN AND 2022-08-29 18:07:00 [facility], [facility] MICROSCOPY, WITH REFLEX TO CULTURE BLOOD CULTURE, AEROBIC & 2022-08-29 18:06:00 Barakat, [facility] ANAEROBIC URINE CULTURE 2022-08-29 17:48:00 [facility]akat[facility] POC GLUCOSE 2022-08-29 14:39:00 Barakat, [facility] ospital CBC WITH PLATELET AND 2022-08-29 10:17:00 Barakat, [facility] DIFFERENTIAL COMPREHENSIVE METABOLIC 2022-08-29 10:17:00 Barakat, [facility] PANEL B NATRIURETIC PEPTIDE 2022-08-29 10:17:00 Richy Delgado [facility] MAGNESIUM LEVEL 2022-08-29 10:17:00 Richy Delgado [facility] ESTIMATED GFR 2022-08-29 10:17:00 Jared Barakat H ospital POC GLUCOSE 2022-08-29 03:38:00 BarakatJared hanna H ospital MAGNESIUM LEVEL 2022-08-29 00:03:00 [facility] US DUPLEX VENOUS LOWER 2022-08-28 18:00:00 [facility] BILATERAL CBC WITH PLATELET AND 2022-08-28 09:34:00 Jared Barakat [facility] DIFFERENTIAL COMPREHENSIVE METABOLIC 2022-08-28 09:34:00 Jared Barakat [facility] PANEL ESTIMATED GFR 2022-08-28 09:34:00 Jared Barakat H ospital POC GLUCOSE 2022-08-27 18:29:00 Jared Barakat ospital TTE COMPLETE, WO 2022-08-27 17:45:00 [facility] CONTRAST, W DOPPLER ([id number]) POC GLUCOSE 2022-08-27 14:43:00 Jeannette Llanes spital RESPIRATORY PATHOGEN 2022-08-27 08:09:00 [facility] PANEL WITH COVID-19 RT-PCR TROPONIN T 2022-08-27 08:09:00 Jakub Martinez [facility] CBC WITH PLATELET AND 2022-08-27 08:09:00 Jeannette Llanes [facility] DIFFERENTIAL PROTHROMBIN TIME WITH INR 2022-08-27 08:09:00 Mario Alberto [facility] HEMOGLOBIN A1C 2022-08-27 08:09:00 Jeannette Llanes spital LIPID PANEL 2022-08-27 08:09:00 Jeannette Llanes spital MAGNESIUM LEVEL 2022-08-27 08:09:00 Jeannette Llanes spital THYROID STIMULATING 2022-08-27 08:09:00 Mario Alberto [facility] HORMONE COMPREHENSIVE METABOLIC 2022-08-27 08:09:00 Jeannette Llanes [facility] PANEL ESTIMATED GFR 2022-08-27 08:09:00 Jeannette Llanes Ho spital ECG ED PRELIMINARY 2022-08-27 07:05:51 [facility] INTERPRETATION CONSULT TO WOUND AND 2022-08-27 06:07:17 Mario Alberto [facility] CONTINENCE NURSE COVID-19, INFLUENZA A&B, 2022-08-27 04:52:00 [facility] AND RSV QUALITATIVE RT-PCR TROPONIN T 2022-08-27 04:52:00 [facility] CBC WITH PLATELET AND 2022-08-26 23:09:00 [facility] DIFFERENTIAL COMPREHENSIVE METABOLIC 2022-08-26 23:09:00 [facility] PANEL TROPONIN T 2022-08-26 23:09:00 [facility] B NATRIURETIC PEPTIDE 2022-08-26 23:09:00 [facility] PARTIAL THROMBOPLASTIN 2022-08-26 23:09:00 [facility] TIME (PTT) PROTHROMBIN TIME WITH INR 2022-08-26 23:09:00 [facility] ESTIMATED GFR 2022-08-26 23:09:00 Rehrer, [facility] XR CHEST 1 VW PORTABLE 2022-08-26 22:43:00 [facility] ECG 12-LEAD 2022-08-26 22:24:35 [facility] MD DEBRIDEMENT 2022-07-31 21:00:00 [facility] SUBCUTANEOUS TISSUE 20 SQ CM/< MD DEBRIDEMENT 2022-07-17 20:30:00 [facility] SUBCUTANEOUS TISSUE 20 SQ CM/< MD DEBRIDEMENT OPEN WOUND 2022-07-10 21:00:00 Que Pascual [facility] 20 SQ CM/< MD DEBRIDEMENT 2022-07-10 21:00:00 [facility] SUBCUTANEOUS TISSUE 20 SQ CM/< MD DEBRIDEMENT 2022-06-26 20:30:00 Samara [facility] SUBCUTANEOUS TISSUE 20 SQ CM/< MD DEBRIDEMENT OPEN WOUND 2022-06-12 20:30:00 [facility] 20 SQ CM/< CBC WITH PLATELET AND 2022-05-28 17:07:00 Carmen Kwan [facility] DIFFERENTIAL COMPREHENSIVE METABOLIC 2022-05-28 17:07:00 [facility] DIRECT 2022-05-28 17:07:00 [facility] MD DEBRIDEMENT 2022-05-22 20:30:00 [facility] SUBCUTANEOUS TISSUE 20 SQ CM/< SURGICAL PATHOLOGY 2022-05-22 17:50:00 [facility] REQUEST MD DEBRIDEMENT 2022-05-15 20:30:00 [place] [facility] SUBCUTANEOUS TISSUE 20 SQ CM/< MD DBRDMT SUBCUTANEOUS 2022-05-15 20:30:00 [facility] TISSUE EA ADDL 20 SQ CM PV PHYSIOLOGIC ARTERIAL 2022-05-07 16:32:40 [facility] LOWER EXTREMITY COMPLETE MD DEBRIDEMENT 2022-05-01 20:15:00 [place] [facility] ospital SUBCUTANEOUS TISSUE 20 SQ CM/< MD DBRDMT SUBCUTANEOUS 2022-05-01 20:15:00 [facility] TISSUE EA ADDL 20 SQ CM MD DEBRIDEMENT OPEN WOUND 2022-04-24 19:00:00 [facility] 20 SQ CM/< MD DEBRIDEMENT OPEN WOUND 2022-04-24 19:00:00 [facility] EACH ADDITIONAL 20 SQ CM POC GLUCOSE 2022-04-19 16:33:00 Aquiles Barker ospihernando Hernandez POC GLUCOSE 2022-04-19 12:25:00 Aquiles Barker CBC WITH PLATELET AND 2022-04-19 08:51:00 Aquiles Barker [facility] DIFFERENTIAL David BASIC METABOLIC PANEL 2022-04-19 08:51:00 Lucero, [facility] ESTIMATED GFR 2022-04-19 08:51:00 [facility] 2022-04-19 01:45:00 LuceroAquiles thomas [facility] POC GLUCOSE 2022-04-18 23:29:00 LuceroAquiles thomas [facility] POC GLUCOSE 2022-04-18 22:39:00 [facility] DURABLE MEDICAL EQUIPMENT 2022-04-18 17:23:50 LuceroAquiles thomas [facility] POC GLUCOSE 2022-04-18 17:06:00 [facility] POC [facility]SE 2022-04-18 14:12:00 [facility] MRI ANKLE WO CONTRAST 2022-04-18 12:53:00 Nadja [facility] RIGHT CBC WITH PLATELET AND 2022-04-18 09:58:00 Lucero, [facility] BASIC METABOLIC PANEL 2022-04-18 09:58:00 Lucero, [facility] ESTIMATED GFR 2022-04-18 09:58:00 [facility] POC GLUCOSE 2022-04-18 01:57:00 [facility] US DUPLEX VENOUS LOWER 2022-04-17 22:55:00 [facility]TREM[facility] RIGHT VANCOMYCIN LEVEL, TROUGH 2022-04-17 21:41:00 LuceroAquiles hinds [facility] POC GLUCOSE 2022-04-17 21:40:00 LuceroAquiles thomas [facility] POC GLUCOSE 2022-04-17 16:57:00 LuceroAquiles thomas [facility] POC GLUCOSE 2022-04-17 12:27:00 LuceroAquiles hinds [facility] HEMOGLOBIN A1C 2022-04-17 11:06:00 LuceroAquiles hinds [facility] CBC WITH PLATELET AND 2022-04-17 11:06:00 Lucero, [facility] DIFFERENTIAL [place] BASIC METABOLIC PANEL 2022-04-17 11:06:00 LuceroAquiles hinds [facility] David C-REACTIVE PROTEIN 2022-04-17 11:06:00 LuceroAquiles [facility] David SEDIMENTATION RATE 2022-04-17 11:06:00 Aquiles Barker [facility] David ESTIMATED GFR 2022-04-17 11:06:00 Lucero, Aquiles [facility] POC GLUCOSE 2022-04-17 01:45:00 LuceroAquilesist [facility] POC GLUCOSE 2022-04-16 20:29:00 Lucero Aquiles [facility] POC GLUCOSE 2022-04-16 17:04:00 Lucero [facility] David CBC HEMOGRAM 2022-04-16 14:32:00 Lucero Aquiles Bryant [facility] BASIC METABOLIC PANEL 2022-04-16 14:32:00 LuceroAquiles hinds [facility] David ESTIMATED GFR 2022-04-16 14:32:00 [facility] 2022-04-16 13:32:00 Lucero Aquiles Bryant [facility] POC GLUCOSE 2022-04-16 01:51:00 Lucero, Aquiles Bryant [facility] POC GLUCOSE 2022-04-15 16:57:00 Lucero [facility]iles [facility] BASIC METABOLIC PANEL 2022-04-15 15:08:00 LuceroAquiles hinds [facility] David ESTIMATED GFR 2022-04-15 15:08:00 LuceroAquiles [facility] POC GLUCOSE 2022-04-15 12:42:00 LuceroAquiles thomasist [facility] HEMOGLOBIN A1C 2022-04-15 10:18:00 Jeannette Llanestal TROPONIN T 2022-04-15 02:08:00 Luz Marina Ybarratal ECG ED PRELIMINARY 2022-04-14 23:32:45 [facility] COVID-19 QUALITATIVE 2022-04-14 23:30:00 [facility] RT-PCR TROPONIN T 2022-04-14 23:30:00 Luz Marina Ybarra spital POC GLUCOSE 2022-04-14 23:24:00 Andreas Zavala spital XR FOOT 3+ VW RIGHT 2022-04-14 21:38:51 Amada [facility] ECG 12-LEAD 2022-04-14 19:34:43 Amada [facility] B[facility], AEROBIC & 2022-04-14 19:29:00 Amada [facility] ANAEROBIC CBC WITH PLATELET AND 2022-04-14 19:29:00 Amada [facility] DIFFERENTIAL COMPREHENSIVE METABOLIC 2022-04-14 19:29:00 Ybarra, [facility] PANEL TROPONIN T 2022-04-14 19:29:00 Amada [facility] B NATRIURETIC PEPTIDE 2022-04-14 19:29:00 Amada [facility] PARTIAL THROMBOPLASTIN 2022-04-14 19:29:00 Amada [facility] TIME (PTT) PROTHROMBIN TIME WITH INR 2022-04-14 19:29:00 Amada [facility] ESTIMATED GFR 2022-04-14 19:29:00 Amada [facility] SEDIMENTATION RATE 2022-04-14 19:29:00 [facility] C-REACTIVE PROTEIN 2022-04-14 19:29:00 [facility] POC GLUCOSE 2022-03-23 17:08:00 Malick Patel H ospital POC GLUCOSE 2022-03-23 12:51:00 Malick Patel ospital POC GLUCOSE 2022-03-22 23:12:00 Malick Patel H ospital POC GLUCOSE 2022-03-22 16:42:00 Malick Patel ospital POC GLUCOSE 2022-03-22 13:03:00 Malick Patel ospital CBC HEMOGRAM 2022-03-22 09:56:00 Malick Patel ospital BASIC METABOLIC PANEL 2022-03-22 09:56:00 Jorge [facility] ESTIMATED GFR 2022-03-22 09:56:00 Malick Patel [facility] POC GLUCOSE 2022-03-22 02:00:00 Malick Patel [facility] POC GLUCOSE 2022-03-21 21:30:00 Malick Patel [facility] POC GLUCOSE 2022-03-21 17:00:00 Malick Patel [facility] POC GLUCOSE 2022-03-21 12:54:00 Malick Patel [facility] CBC HEMOGRAM 2022-03-21 09:48:00 Malick Patel [facility] BASIC METABOLIC PANEL 2022-03-21 09:48:00 [facility] NATRIURETIC PEPTIDE 2022-03-21 09:48:00 Jorge [facility] ESTIMATED GFR 2022-03-21 09:48:00 Malick Patel [facility] POC GLUCOSE 2022-03-21 02:53:00 Malick Patel [facility] POC GLUCOSE 2022-03-20 22:13:00 Malick Patel [facility] POC GLUCOSE 2022-03-20 16:21:00 Malick Patel [facility] POC GLUCOSE 2022-03-20 13:04:00 Malick Patel [facility] CBC HEMOGRAM 2022-03-20 10:08:00 Malick Patel [facility] BASIC METABOLIC PANEL 2022-03-20 10:08:00 Jorge [facility] ESTIMATED GFR 2022-03-20 10:08:00 Malick Patel [facility] POC GLUCOSE 2022-03-20 01:42:00 Malick Patel [facility] POC GLUCOSE 2022-03-19 23:02:00 Malick Patel [facility] POC GLUCOSE 2022-03-19 18:13:00 Malick Patel [facility] CT ANGIOGRAM PE CHEST 2022-03-19 17:59:54 Jorge [facility] POC GLUCOSE 2022-03-19 13:54:00 [facility]- ANTI-SPIKE IGG 2022-03-19 08:57:00 Carmen Engle [facility] ANTIBODY TITER Juan B NATRIURETIC PEPTIDE 2022-03-19 08:57:00 Jorge [facility] ZZCOVID-19 SEROLOGY 2022-03-19 08:57:00 [facility] Juan CBC HEMOGRAM 2022-03-19 08:57:00 Malick Patel ospital COMPREHENSIVE METABOLIC 2022-03-19 08:57:00 Malick Patel [facility] PANEL ESTIMATED GFR 2022-03-19 08:57:00 Malick Patel H ospital ESTIMATED GFR 2022-03-19 08:48:00 [facility]SE 2022-03-19 02:39:00 Jorge [facility] ospital POC GLUCOSE 2022-03-18 22:34:00 Malick Patel ospital US SCROTAL 2022-03-18 19:25:00 Malick Patelist H ospital POC GLUCOSE 2022-03-18 17:26:00 Jorge [facility] ospital POC GLUCOSE 2022-03-18 14:18:00 [facility] TTE COMPLETE, W CONTRAST, 2022-03-18 13:00:00 Malick Patel [facility] W DOPPLER ([id number]) TROPONIN T 2022-03-18 09:17:00 [facility] 2022-03-18 09:17:00 Malick Patel H ospital BASIC METABOLIC PANEL 2022-03-18 09:17:00 Jorge [facility] ESTIMATED GFR 2022-03-18 09:17:00 Jorge [facility] US DUPLEX VENOUS LOWER 2022-03-18 01:56:00 [facility] POC GLUCOSE 2022-03-18 01:44:00 Malick Patel ospital TROPONIN T 2022-03-17 23:15:00 [facility] 2022-03-17 20:45:00 Ratna Peacock nikia Romero URINALYSIS SCREEN AND 2022-03-17 20:45:00 Ratna Peacock [facility] MICROSCOPY, WITH REFLEX Nick TO CULTURE ECG ED PRELIMINARY 2022-03-17 20:39:04 John [facility] INTERPRETATION COVID-19 QUALITATIVE 2022-03-17 20:14:[address] [facility] RT-PCR CBC WITH PLATELET AND 2022-03-17 [facility] COMPREHENSIVE METABOLIC 2022-03-17 [facility]:14[facility]00 [facility]NESI[facility] LEVEL 2022-03-17 [facility]17 [facility] NATRIURETIC PEPTIDE 2022-03-17 20:14:00 [facility] ESTIMATED GFR 2022-03-17 20:14:00 [facility] XR CHEST 1 VW PORTABLE 2022-03-17 19:31:55 [facility] 12-LEAD 2022-03-17 18:22:19 Ratna Peacock nikia Romero Plan of Care Planned Activity Planned Date Details Comments Source Future Scheduled Test 2023-04-08 DIABETIC FOOT EXAM [facility] 18:07:59 [code = DIABETIC FOOT EXAM] Future Scheduled Test 2023-04-08 HEPATITIS B [facility] 18:07:59 VACCINES (1 of 3 - Risk 3-dose series) [code = HEPATITIS B VACCINES (1 of 3 - Risk 3-dose series)] Future Scheduled Test 2023-04-08 DIABETES: [facility] 18:07:59 EYE EXAM [code = DIABETES: RETINAL EYE EXAM] Future Scheduled Test 2023-04-08 COVID-19 VACCINE (4 [facility] 18:07:59 - Pfizer series) [code = COVID-19 VACCINE (4 - Pfizer series)] Future Scheduled Test 2023-04-08 INFLUENZA VACCINE [facility] 18:07:59 (#1) [code = INFLUENZA VACCINE (#1)] Future Scheduled Test 2023-03-02 DIABETIC FOOT EXAM [facility] 18:25:26 [code = DIABETIC FOOT EXAM] Future Scheduled Test 2023-03-02 HEPATITIS B [facility] 18:25:26 VACCINES (1 of 3 - Risk 3-dose series) [code = HEPATITIS B VACCINES (1 of 3 - Risk 3-dose series)] Future Scheduled Test 2023-03-02 DIABETES: RETINAL [facility] 18:25:26 EYE EXAM [code = DIABETES: RETINAL EYE EXAM] Future Scheduled Test 2023-03-02 COVID-19 VACCINE ([address] [place] [address] 18:25:26 - Pfizer series) [code = COVID-19 VACCINE (4 - Pfizer series)] Future Scheduled Test 2023-03-02 INFLUENZA VACCINE [facility] 18:25:26 (#1) [code = INFLUENZA VACCINE (#1)] Future Scheduled Test 2023-02-06 DIABETIC FOOT EXAM [facility] 12:28:32 [code = DIABETIC FOOT EXAM] Future Scheduled Test 2023-02-06 HEPATITIS B [facility] 12:28:32 VACCINES (1 of 3 - Risk 3-dose series) [code = HEPATITIS B VACCINES (1 of 3 - Risk 3-dose series)] Future Scheduled Test 2023-02-06 DIABETES: RETINAL [facility] 12:28:32 EYE EXAM [code = DIABETES: RETINAL EYE EXAM] Future Scheduled Test 2023-02-06 COVID-19 VACCINE ([address] [place] [address] 12:28:32 - Pfizer series) [code = COVID-19 VACCINE (4 - Pfizer series)] Future Scheduled Test 2023-02-06 INFLUENZA VACCINE [facility] 12:28:32 [code = INFLUENZA VACCINE] Future Appointment 2023-05-23 Ya Ceron MD, [facility] 07:30:[address] [place] [address]; [address] [place] [address] Future Appointment 2023-05-23 Ya Ceron MD, [facility] 07:30:[address] [place] [address]; [place] [address] Future Appointment 2023-05-23 Ya Ceron MD, [facility] 07:30:[address] [place] [address]; [address], [place] [id number] Future Appointment 2023-05-23 Ya Ceron MD, [facility] 07:30:[address] [place] [address]; [address], [place] [id number] Procedure 2023-05-23 RELEASE, CARPAL [facility] 13:30:00 TUNNEL Procedure 2023-05-23 DECOMPRESSION, [facility] 13:30:00 ULNAR NERVE Encounters Start End Encounter Admission Attending Care Care Encounter Source Date/Time Date/Time Type Type Clinicians Facility Department ID 2021-08-[address] [facility] [id number] [facility] 2023-02-25 Telephone Sherri, 1.2.840.1 [id number] 2 [id number] Methodi 00:00:00 00:00:[address] [facility] 3.430.2.7 Hospit a .3.557951 l .8 2023-02-25 2023-02-25 Telephone Sherri, 1.2.840.1 [id number] 2 [id number] Methodi 00:00:00 00:00:[address] [facility] 3.430.2.7 Hospit a .3.323773 l .8 2023-02-24 2023-02-24 Telephone Sherri, 1.2.840.1 [id number] 2 [id number] Methodi 00:00:00 00:00:[address] [facility] 3.430.2.7 Hospit a .3.871494 l .8 2023-02-24 2023-02-24 Telephone Wilmer, 1.2.840.1 [id number] Methodi 00:00:00 00:00:[address] 3.430.2.7 Hospit a .3.602795 l .8 2023-02-24 2023-02-24 Telephone Sherri, 1.2.840.1 [id number] 2 [id number] Methodi 00:00:00 00:00:[address] [facility] 3.430.2.7 Hospit a .3.199446 l .8 2023-02-24 2023-02-24 Telephone Wilmer 1.2.840.1 [id number] Methodi 00:00:00 00:00:[address] 3.430.2.7 Hospit a .3.546798 l .8 2023-02-19 2023-02-19 Pre-Admiss Ya Ceronhel 1.2.840. 1 [id number] Methodi 15:40:00 16:40:00 Kelley Nelson 99144.1.[address] Testing 3.430.2.7 Hospit a .3.843986 l .8 2023-02-19 2023-02-19 Pre-Admiss Ya Ceronhel 1.2.840. 1 [id number] Methodi 15:40:00 16:40:00 Kelley Nelson 03496.1.[address] Testing 3.430.2.7 Hospit a .3.995172 l .8 2023-02-14 2023-02-14 Shawn Guillen 1.2.840.1 [id number] 2100 [id number] Methodi 00:00:00 00:00:00 Only Candis 87654.1.[address] 3.430.2.7 Hospit a .3.862661 l .8 2023-02-14 2023-02-14 Telephone Jie 1.2.840.1 [id number] Methodi 00:00:00 00:00:[address] [place] 3.430.2.7 Hospit a .3.387254 l .8 2023-02-14 2023-02-14 Shawn Guillen 1.2.840.1 [id number] 2100 [id number] Methodi 00:00:00 00:00:00 Only Candis 88856.1.[address] 3.430.2.7 Hospit a .3.071459 l .8 2023-02-14 2023-02-14 Telephone [facility], 1.2.840.1 [id number] 21 [id number] Methodi 00:00:00 00:00:[address] [place] 3.430.2.7 Hospit a .3.003157 l .8 2023-02-05 2023-02-05 Orders Wilmer 1.2.840.1 [id number] 2100 [id number] Methodi 00:00:00 00:00:00 Only Candis 83918.1.[address] 3.430.2.7 Hospit a .3.570900 l .8 2023-02-05 2023-02-05 Orders Wilmer 1.2.840.1 [id number] 2099 [id number] Methodi 00:00:00 00:00:00 Only Candis 69599.1.[address] 3.430.2.7 Hospit a .3.729911 l .8 2023-01-30 2023-01-30 Office Jie, 1.2.840.1 [id number] 2099 [id number] Methodi 11:00:00 12:39:15 [place] [address] [place] 3.430.2.7 Hospit a .3.376166 l .8 2023-01-30 2023-01-30 Office Jie, 1.2.840.1 [id number] 2099 [id number] Methodi 11:00:00 12:39:15 [place] [address].1.[address] [place] 3.430.2.7 Hospit a .3.358714 l .8 2023-01-30 2023-01-30 Outpatient GC_TNC_Cher PRIV PRIV 277 [id number] [facility] 00:00:00 00:00:00 ches_I [id number] Medica l 2023-01-30 2023-01-30 Shawn Guillen 1.2.840.1 [id number] 2099 [id number] Methodi 00:00:00 00:00:00 Only Candis 01531.1.[address] 3.430.2.7 Hospit a .3.566929 l .8 2023-01-30 2023-01-30 Outpatient JIE [facility] [id number] [place] 00:00:00 00:00:00 YA [address] 2023-01-30 2023-01-30 Orders Wilmer, 1.2.840.1 [id number] 2100 [id number] Methodi 00:00:00 00:00:00 Only Candis 81312.1.[address] 3.430.2.7 Hospit a .3.406050 l .8 2023-01-06 2023-01-06 Telephone Casa, 1.2.840.1 [id number] 723 [id number] Methodi 00:00:00 00:00:[address] 3.430.2.7 Hospit a .3.800926 l .8 2023-01-06 2023-01-06 Telephone Casa, 1.2.840.1 [id number] 688 [id number] Methodi 00:00:00 00:00:[address] 3.430.2.7 Hospit a .3.789065 l .8 2022-12-16 2022-12-16 Telephone Sherri, 1.2.840.1 [id number] 2 [id number] Methodi 00:00:00 00:00:[address] [facility] 3.430.2.7 Hospit a .3.207803 l .8 2022-12-16 2022-12-16 Telephone Sherri, 1.2.840.1 [id number] 2 [id number] Methodi 00:00:00 00:00:[address] [facility] 3.430.2.7 Hospit a .3.946606 l .8 2022-12-13 2022-12-13 Patient Scar, 1.2.840.1 [id number] 2100 [id number] Methodi 00:00:00 00:00:00 Outreach Mariela 53583.1.[address] 3.430.2.7 Hospit a .3.247453 l .8 2022-12-13 2022-12-13 Patient Scar, 1.2.840.1 [id number] 2099 [id number] Methodi 00:00:00 00:00:00 Outreach Mariela 38352.1.[address] 3.430.2.7 Hospit a .3.891628 l .8 2022-12-12 2022-12-12 Travel 1.2.840.1 1.2.669.091 2468 [id number] Methodi 00:00:00 00:00:[address] 3.430.2.7 0.2.7.3.698 Ho spita .3.943941 084.8 l .8 2022-12-12 2022-12-12 Travel 1.2.840.1 1.2.406.891 1094 849863 Methodi 00:00:00 00:00:[address] 3.430.2.7 0.2.7.3.698 Ho spita .3.631814 084.8 l .8 2022-11-29 2022-11-29 Patient Scar, 1.2.840.1 [id number] 2100 [id number] Methodi 00:00:00 00:00:00 Outreach Mariela 31579.1.[address] 3.430.2.7 Hospit a .3.589153 l .8 2022-11-29 2022-11-29 Patient Scar, 1.2.840.1 [id number] 2100 [id number] Methodi 00:00:00 00:00:00 Outreach Mariela 19613.1.[address] 3.430.2.7 Hospit a .3.706178 l .8 2022-11-25 2022-11-25 Telephone Sherri 1.2.840.1 [id number] 2 [id number] Methodi 00:00:00 00:00:[address] [facility] 3.430.2.7 Hospit a .3.319209 l .8 2022-11-25 2022-11-25 Telephone Sherri 1.2.840.1 [id number] 2 [id number] Methodi 00:00:00 00:00:[address] [facility] 3.430.2.7 Hospit a .3.162623 l .8 2022-11-19 2022-11-19 Telephone Casa, 1.2.840.1 [id number] 880 [id number] Methodi 00:00:00 00:00:[address] 3.430.2.7 Hospit a .3.936063 l .8 2022-11-19 2022-11-19 Telephone Casa, 1.2.840.1 [id number] [id number] Methodi 00:00:00 00:00:[address] 3.430.2.7 Hospit a .3.829932 l .8 2022-11-13 2022-11-13 Patient Scar, 1.2.840.1 [id number] 2100 [id number] Methodi 00:00:00 00:00:00 Outreach Mariela 90251.1.[address] 3.430.2.7 Hospit a .3.585015 l .8 2022-11-13 2022-11-13 Patient Scar, 1.2.840.1 [id number] 2099 [id number] Methodi 00:00:00 00:00:00 Outreach Mariela 57441.1.[address] 3.430.2.7 Hospit a .3.658595 l .8 2022-11-12 2022-11-12 Office Aquiles 1.2.840.1 [id number] Methodi 15:00:00 15:37:14 Visit Carmen Kent 72550.1.[address] 3.430.2.7 Hospit a .3.118775 l .8 2022-11-12 2022-11-12 Office Aquiles 1.2.840.1 [id number] Methodi 15:00:00 15:37:14 Visit Carmen Kent 44153.1.[address] 3.430.2.7 Hospit a .3.015649 l .8 2022-11-12 2022-11-12 Travel 1.2.840.1 1.2.604.637 7168 [id number] Methodi 00:00:00 00:00:[address] 3.430.2.7 0.2.7.3.698 Ho spita .3.503910 084.8 l .8 2022-11-12 2022-11-12 Travel 1.2.840.1 1.2.754.380 1930 [id number] Methodi 00:00:00 00:00:[address] 3.430.2.7 0.2.7.3.698 Ho spita .3.070177 084.8 l .8 2022-10-28 2022-10-28 Patient Scar, 1.2.840.1 [id number] 2099 [id number] Methodi 00:00:00 00:00:00 Outreach Amriela 79043.1.[address] 3.430.2.7 Hospit a .3.056559 l .8 2022-10-28 2022-10-28 Patient Scar, 1.2.840.1 [id number] 2100 [id number] Methodi 00:00:00 00:00:00 Outreach Mariela 54059.1.[address] 3.430.2.7 Hospit a .3.800712 l .8 2022-10-28 2022-10-28 Patient Scar, 1.2.840.1 [id number] 2099 [id number] Methodi 00:00:00 00:00:00 Outreach Mariela 49490.1.[address] 3.430.2.7 Hospit a .3.901829 l .8 2022-10-28 2022-10-28 Patient Scar, 1.2.840.1 [id number] 2100 [id number] Methodi 00:00:00 00:00:00 Outreach Mariela [address]180.1.[address] 3.430.2.7 Hospit a .3.281995 l .8 2022-10-25 2022-10-25 Office Sherri, 1.2.840.1 [id number] 231 [id number] Methodi 11:30:00 11:46:28 Visit Deepxavier 03837.1.[address] [facility] 3.430.2.7 Hospit a .3.805193 l .8 2022-10-25 2022-10-25 Office Sherri, 1.2.840.1 [id number] 399 [id number] Methodi 11:30:00 11:46:28 Visit Kurt 55948.1.[address] [facility] 3.430.2.7 Hospit a .3.759829 l .8 2022-10-23 2022-10-23 Telephone Casa, 1.2.840.1 [id number] 461 [id number] Methodi 00:00:00 00:00:[address] 3.430.2.7 Hospit a .3.851118 l .8 2022-10-23 2022-10-23 Telephone Casa, 1.2.840.1 [id number] 906 [id number] Methodi 00:00:00 00:00:[address] 3.430.2.7 Hospit a .3.588751 l .8 2022-10-17 2022-10-17 Telephone Elie, 1.2.840.1 [id number] 2100 691421 Methodi 00:00:00 00:00:[address] 3.430.2.7 Hospit a .3.619788 l .8 2022-10-17 2022-10-17 Telephone [facility], 1.2.840.1 [id number] 2100 [id number] Methodi 00:00:00 00:00:[address] 3.430.2.7 Hospit a .3.396521 l .8 2022-10-15 2022-10-15 [facility], 1.2.840.1 [id number] 77577 20634 Methodi 09:30:00 23:59:00 Encounter Carmen Kent 12856.1.1 244 s t 3.430.2.7 Hospit a .3.832699 l .8 2022-10-15 2022-10-15 [facility], 1.2.840.1 [id number] 54684 73499 Methodi 09:30:00 23:59:00 Encounter Carmen Kent 49474.1.1 244 s t 3.430.2.7 Hospit a .3.879608 l .8 2022-10-15 2022-10-15 Travel 1.2.840.1 1.2.791.525 6713 626231 Methodi 00:00:00 00:00:[address] 3.430.2.7 0.2.7.3.698 Ho spita .3.160159 084.8 l .8 2022-10-15 2022-10-15 Travel 1.2.840.1 1.2.726.925 9712 905148 Methodi 00:00:00 00:00:[address] 3.430.2.7 0.2.7.3.698 Ho spita .3.159018 084.8 l .8 2022-10-08 2022-10-08 Patient Scar, 1.2.840.1 [id number] 2100 131058 Methodi 00:00:00 00:00:00 Outreach Mariela 14558.1.[address] 3.430.2.7 Hospit a .3.473683 l .8 2022-10-08 2022-10-08 Patient Scar, 1.2.840.1 [id number] Methodi 00:00:00 00:00:00 Outreach Mariela 42688.1.[address] 3.430.2.7 Hospit a .3.482190 l .8 2022-10-04 2022-10-04 Patient Scar, 1.2.840.1 2099 148870 Methodi 00:00:00 00:00:00 Outreach Mariela 57724.1.[address] 3.430.2.7 Hospit a .3.375799 l .8 2022-10-04 2022-10-04 Patient Scar, 1.2.840.1 [id number] 2100 294783 Methodi 00:00:00 00:00:00 Outreach Mariela 94532.1.[address] 3.430.2.7 Hospit a .3.538637 l .8 2022-10-02 2022-10-02 Office [place], 1.2.840.1 [id number] 182512 0903 Methodi 15:15:00 16:28:[place] [address] 3.430.2.7 Hospit a .3.626640 l .8 2022-10-02 2022-10-02 Office [place], 1.2.840.1 [id number] 484498 3463 Methodi 15:15:00 16:28:[place] [address] 3.430.2.7 Hospit a .3.089969 l .8 2022-09-25 2022-09-25 Office [place], 1.2.840.1 [id number] 184059 6957 Methodi 15:00:00 16:16:[place] [address] 3.430.2.7 Hospit a .3.945665 l .8 2022-09-25 2022-09-25 Office [place], 1.2.840.1 [id number] 530630 7847 Methodi 15:00:00 16:16:[place] [address] 3.430.2.7 Hospit a .3.922644 l .8 2022-09-19 2022-09-19 Patient Scar, 1.2.840.1 [id number] 2099 [id number] Methodi 00:00:00 00:00:00 Outreach Mariela 38796.1.[address] 3.430.2.7 Hospit a .3.260063 l .8 2022-09-19 2022-09-19 Patient Scar, 1.2.840.1 [id number] 2099 920133 Methodi 00:00:00 00:00:00 Outreach Mariela [address]202.1.[address] 3.430.2.7 Hospit a .3.946872 l .8 2022-09-18 2022-09-18 Office [place], 1.2.840.1 [id number] 489513 1221 Methodi 14:30:00 15:17:[place] [address] 3.430.2.7 Hospit a .3.045611 l .8 2022-09-18 2022-09-18 Office [place], 1.2.840.1 212783486 572242 4934 Methodi 14:30:00 15:17:10 [place] [address] 3.430.2.7 Hospit a .3.762792 l .8 2022-09-17 2022-09-17 Patient Brody, 1.2.840.1 [id number] 510045 4841 Methodi 00:00:00 00:00:00 Outreach Ralph 76431.1.[address] 3.430.2.7 Hospit a .3.425209 l .8 2022-09-17 2022-09-17 Patient Brody, 1.2.840.1 [id number] 167639 3521 Methodi 00:00:00 00:00:00 Outreach Ralph [address]457.1.[address] 3.430.2.7 Hospit a .3.638106 l .8 2022-09-12 2022-09-12 Patient Scar, 1.2.840.1 [id number] 2100 516523 Methodi 00:00:00 00:00:00 Outreach Mariela 78818.1.[address] 3.430.2.7 Hospit a .3.765306 l .8 2022-09-12 2022-09-12 Patient Scar, 1.2.840.1 [id number] 2099 147474 Methodi 00:00:00 00:00:00 Outreach Mariela 79798.1.[address] 3.430.2.7 Hospit a .3.780741 l .8 2022-09-09 2022-09-09 Orders [facility] 1.2.840.1 [id number] 728226 9604 Methodi 00:00:00 00:00:00 Only Calderon, 09255.1.[address] Cathleen B. 3.430.2.7 Hospi ta .3.996758 l .8 2022-09-09 2022-09-09 Orders [facility] 1.2.840.1 [id number] 8361 Methodi 00:00:00 00:00:00 Only Calderon, 61651.1.[address] Cathleen B. 3.430.2.7 Hospi ta .3.597516 l .8 2022-09-06 2022-09-06 Patient Scar, 1.2.840.1 [id number] 2100 382139 Methodi 00:00:00 00:00:00 Outreach Mariela 83210.1.[address] 3.430.2.7 Hospit a .3.155117 l .8 2022-09-06 2022-09-06 Patient Scar, 1.2.840.1 [id number] 2100 892995 Methodi 00:00:00 00:00:00 Outreach Mariela [address]7428.1.[address] 3.430.2.7 Hospit a .3.878170 l .8 2022-09-05 2022-09-05 Office Saint 1.2.840.1 155313135 677616 0087 Methodi 15:00:00 15:04:22 Visit Calderon, 27232.1.[address] Cathleen B. 3.430.2.7 Hospi ta .3.793222 l .8 2022-09-05 2022-09-05 Office Saint 1.2.840.1 [id number] 258013 6532 Methodi 15:00:00 15:04:22 Visit Calderon 04302.1.[address] Cathleen B. 3.430.2.7 Hospi ta .3.248795 l .8 2022-09-05 2022-09-05 Travel 1.2.840.1 1.2.956.127 5001 865121 Methodi 00:00:00 00:00:[address] 3.430.2.7 0.2.7.3.698 Ho jim .3.306929 084.8 l .8 2022-09-05 2022-09-05 Patient Scar, 1.2.840.1 252460703 2100 873779 Methodi 00:00:00 00:00:00 Outreach Mariela 99814.1.[address] 3.430.2.7 Hospit a .3.179522 l .8 2022-09-05 2022-09-05 Travel 1.2.840.1 1.2.769.665 1787 813434 Methodi 00:00:00 00:00:[address] 3.430.2.7 0.2.7.3.698 Ho spita .3.908916 084.8 l .8 2022-09-05 2022-09-05 Patient Scar, 1.2.840.1 [id number] 2100 684658 Methodi 00:00:00 00:00:00 Outreach Mariela 77753.1.[address] 3.430.2.7 Hospit a .3.956446 l .8 2022-08-26 2022-09-03 [facility] 1.2.840.1 70355 1036 [id number] Methodi 16:14:00 12:23:00 Encounter Jeannette Llanes 14497.1.[address] [place], Jared Anthony 3.430.2.7 [facility] Dianelys Loi .3.529600 l .8 2022-08-26 2022-09-03 [facility] 1.2.840.1 04159 1036 [id number] Methodi 16:14:00 12:23:00 Encounter Elaine Llanesat 32586.1.[address] [place], Jared Anthony 3.430.2.7 [facility], Dianelys Loi .3.629120 l .8 2022-08-27 2022-08-27 Telephone Sherri 1.2.840.1 [id number] 2 [id number] Methodi 00:00:00 00:00:[address] Shlomo 3.430.2.7 Hospit a .3.808854 l .8 2022-08-27 2022-08-27 Telephone Sherri, 1.2.840.1 358244082 2 [id number] Methodi 00:00:00 00:00:[address] Shlomo 3.430.2.7 Hospit a .3.014849 l .8 2022-08-26 2022-08-26 Travel 1.2.840.1 1.2.425.765 2454 585800 Methodi 00:00:00 00:00:[address] 3.430.2.7 0.2.7.3.698 Ho spita .3.434755 084.8 l .8 2022-08-26 2022-08-26 Travel 1.2.840.1 1.2.411.490 2393 388212 Methodi 00:00:00 00:00:[address] 3.430.2.7 0.2.7.3.698 Ho spita .3.134148 084.8 l .8 2022-08-23 2022-08-23 Telephone Aliyah, 1.2.840.1 366901662 2100 265938 Methodi 00:00:00 00:00:[address] [place] 3.430.2.7 Hospit a .3.719989 l .8 2022-08-23 2022-08-23 Telephone Aliyah, 1.2.840.1 [id number] 2099 858889 Methodi 00:00:00 00:00:[address] [place] 3.430.2.7 Hospit a .3.393521 l .8 2022-08-21 2022-08-21 Office Samara, 1.2.840.1 132949726 127726 9962 Methodi 15:45:00 16:34:28 [place] [address]45.1.[address] 3.430.2.7 Hospit a .3.133987 l .8 2022-08-21 2022-08-21 Office Shelbysafia 1.2.840.1 381798275 770791 0067 Methodi 15:45:00 16:34:28 Visit Que GutiérrezCristian 13728.1.[address] 3.430.2.7 Hospit a .3.099540 l .8 2022-08-14 2022-08-14 Office Que Pascual 1.2.840.1 9459248 04 [id number] Methodi 15:15:00 16:21:24 Visit Brandi Mares 16585.1.[address] 3.430.2.7 Hospit a .3.991271 l .8 2022-08-14 2022-08-14 Office Que Pascual 1.2.840.1 6282034 04 [id number] Methodi 15:15:00 16:21:24 Visit Brandi Mares 22186.1.[address] 3.430.2.7 Hospit a .3.054995 l .8 2022-07-31 2022-07-31 Office Samara Que Aj 1.2.840.1 1282035 04 [id number] Methodi 15:00:00 16:01:03 Visit Brandi Mares 99792.1.[address] 3.430.2.7 Hospit a .3.745235 l .8 2022-07-31 2022-07-31 Office Samara Que Aj 1.2.840.1 7427647 04 [id number] Methodi 15:00:00 16:01:03 Visit Brandi Mares 30884.1.[address] 3.430.2.7 Hospit a .3.183381 l .8 2022-07-19 2022-07-19 Telephone Sherri 1.2.840.1 782107247 2 [id number] Methodi 00:00:00 00:00:[address] Shlomo 3.430.2.7 Hospit a .3.157910 l .8 2022-07-19 2022-07-19 Telephone Sherri, 1.2.840.1 546330914 2 [id number] Methodi 00:00:00 00:00:[address] Shlomo 3.430.2.7 Hospit a .3.170005 l .8 2022-07-17 2022-07-17 Office Que Pascual 1.2.840.1 7333357 04 [id number] Methodi 14:30:00 16:12:14 Visit Brandi Mares 75180.1.[address] 3.430.2.7 Hospit a .3.513515 l .8 2022-07-17 2022-07-17 Office Que Pascual 1.2.840.1 4479200 04 [id number] Methodi 14:30:00 16:12:14 Visit Brandi Mares 86776.1.[address] 3.430.2.7 Hospit a .3.209496 l .8 2022-07-10 2022-07-10 Office Que Pascual 1.2.840.1 0928934 04 [id number] Methodi 15:00:00 16:00:45 Visit Brandi Mares 80393.1.[address] 3.430.2.7 Hospit a .3.424098 l .8 2022-07-10 2022-07-10 Office Que Pascual 1.2.840.1 4853760 04 [id number] Methodi 15:00:00 16:00:45 Visit Brandi Mares 53275.1.[address] 3.430.2.7 Hospit a .3.033705 l .8 2022-07-01 2022-07-01 Refill Lucero, 1.2.840.1 553755564 2100 628321 Methodi 00:00:00 00:00:[address] David 3.430.2.7 Hospit a .3.555779 l .8 2022-07-01 2022-07-01 Refill Lucero, 1.2.840.1 721019104 2100 162147 Methodi 00:00:00 00:00:[address] David 3.430.2.7 Hospit a .3.386766 l .8 2022-06-26 2022-06-26 Office Shelbysafia Que MarlaCristian 1.2.840.1 0232228 0771284517 Methodi 14:30:00 16:59:30 Visit Brandi Mares 45899.1.[address] 3.430.2.7 Hospit a .3.749933 l .8 2022-06-26 2022-06-26 Office Que Pascual 1.2.840.1 8961053 04 [id number] Methodi 14:30:00 16:59:30 Visit Brandi Mares 34704.1.[address] 3.430.2.7 Hospit a .3.922338 l .8 2022-06-20 2022-06-20 Patient Kat Ahn 1.2.840.1 [id number] 2099 683625 Methodi 00:00:00 00:00:[address] 3.430.2.7 Hospit a .3.199647 l .8 2022-06-20 2022-06-20 Patient Kat Ahn 1.2.840.1 [id number] 2099 660467 Methodi 00:00:00 00:00:[address] 3.430.2.7 Hospit a .3.206905 l .8 2022-06-19 2022-06-19 Patient Jimy Kat 1.2.840.1 708919059 2099 869232 Methodi 00:00:00 00:00:[address] 3.430.2.7 Hospit a .3.185013 l .8 2022-06-19 2022-06-19 Patient Kat Ahn 1.2.840.1 802476528 2099 899797 Methodi 00:00:00 00:00:[address] 3.430.2.7 Hospit a .3.985279 l .8 2022-06-12 2022-06-12 Office Que Pascual 1.2.840.1 4003437 3268022616 Methodi 14:30:00 15:39:14 Visit Brandi Mares 83050.1.[address] 3.430.2.7 Hospit a .3.769656 l .8 2022-06-12 2022-06-12 Office Que Pascual 1.2.840.1 1100452 5786340847 Methodi 14:30:00 15:39:14 Visit Brandi Mares 62910.1.[address] 3.430.2.7 Hospit a .3.361568 l .8 2022-06-10 2022-06-10 Patient Kat Ahn 1.2.840.1 040098626 2099 598328 Methodi 00:00:00 00:00:[address] 3.430.2.7 Hospit a .3.049127 l .8 2022-06-10 2022-06-10 Patient Kat Ahn 1.2.840.1 710810090 2100 674346 Methodi 00:00:00 00:00:[address] 3.430.2.7 Hospit a .3.191880 l .8 2022-06-06 2022-06-06 Telephone Yoni 1.2.840.1 [id number] 2099 354112 Methodi 00:00:00 00:00:[address] 3.430.2.7 Hospit a .3.467518 l .8 2022-06-06 2022-06-06 Telephone Yoni 1.2.840.1 682743319 2099 977385 Methodi 00:00:00 00:00:[address] 3.430.2.7 Hospit a .3.458059 l .8 2022-06-04 2022-06-04 Office Aquiles 1.2.840.1 298467994 171598 7352 Methodi 14:15:00 15:32:12 Visit Carmen Kent 72145.1.[address] 3.430.2.7 Hospit a .3.404727 l .8 2022-06-04 2022-06-04 Office Aquiles 1.2.840.1 061533239 492555 7447 Methodi 14:15:00 15:32:12 Visit Carmen Kent 09577.1.[address] 3.430.2.7 Hospit a .3.347486 l .8 2022-06-04 2022-06-04 Travel 1.2.840.1 1.2.263.369 8584 024909 Methodi 00:00:00 00:00:[address] 3.430.2.7 0.2.7.3.698 Ho spita .3.154688 084.8 l .8 2022-06-04 2022-06-04 Travel 1.2.840.1 1.2.876.712 9251 662598 Methodi 00:00:00 00:00:[address] 3.430.2.7 0.2.7.3.698 Ho spita .3.958396 084.8 l .8 2022-05-29 2022-05-29 Office Que Pascual 1.2.840.1 9503293 04 [id number] Methodi 10:30:00 12:59:55 Visit Brandi Mares 95543.1.[address] 3.430.2.7 Hospit a .3.118857 l .8 2022-05-29 2022-05-29 Office Que Pascual 1.2.840.1 2274290 04 [id number] Methodi 10:30:00 12:59:55 Visit OrensriBrandi 96884.1.[address] 3.430.2.7 Hospit a .3.045988 l .8 2022-05-27 2022-05-27 Patient Kat Ahn 1.2.840.1 610842175 2100 973135 Methodi 00:00:00 00:00:[address] 3.430.2.7 Hospit a .3.250376 l .8 2022-05-27 2022-05-27 Patient Jimy, Kat 1.2.840.1 755518279 2100 957688 Methodi 00:00:00 00:00:[address] 3.430.2.7 Hospit a .3.889428 l .8 2022-05-22 2022-05-22 Office Lepow, 1.2.840.1 530091740 600886 9087 Methodi 14:30:00 15:48:[place] [address].[address] 3.430.2.7 Hospit a .3.846579 l .8 2022-05-22 2022-05-22 Office [place], 1.2.840.1 388739961 565893 4522 Methodi 14:30:00 15:48:34 [place] [address].1.[address] 3.430.2.7 Hospit a .3.960501 l .8 2022-05-22 2022-05-22 Lab L[place], 1.2.840.1 084133575 277736 5005 Methodi 00:00:00 00:05:00 Que Gutiérrez. 53345.1.[address] 3.430.2.7 Hospit a .3.147686 l .8 2022-05-22 2022-05-22 Lab [place], 1.2.840.1 999805798 090926 1752 Methodi 00:00:00 00:05:00 Que Gutiérrez. [address]18.1.[address] 3.430.2.7 Hospit a .3.133227 l .8 2022-05-15 2022-05-15 Office [place], 1.2.840.1 700748839 549969 5420 Methodi 14:30:00 15:08:48 Visit Que GutiérrezCristian 43960.1.[address] 3.430.2.7 Hospit a .3.861903 l .8 2022-05-15 2022-05-15 [facility] 1.2.840.1 412873879 864813 6870 Methodi 14:30:00 15:08:48 [place] [address].1.[address] 3.430.2.7 Hospit a .3.817201 l .8 2022-05-13 2022-05-13 Patient Kat Ahn 1.2.840.1 236697693 2099 767822 Methodi 00:00:00 00:00:[address] 3.430.2.7 Hospit a .3.553483 l .8 2022-05-13 2022-05-13 Patient Kat Ahn 1.2.840.1 339330135 2099 943338 Methodi 00:00:00 00:00:[address] 3.430.2.7 Hospit a .3.241734 l .8 2022-05-07 2022-05-07 [facility] 1.2.840.1 193149434 49836 05147 Methodi 09:33:06 23:59:00 [place] [address].1.[address] 3.430.2.7 Hospit a .3.447428 l .8 2022-05-07 2022-05-07 [facility] 1.2.840.1 326951993 02931 05179 Methodi 09:33:06 23:59:00 [place] [address]72.1.[address] 3.430.2.7 Hospit a .3.895887 l .8 2022-05-07 2022-05-07 Travel 1.2.840.1 1.2.380.733 8540 963263 Methodi 00:00:00 00:00:[address] 3.430.2.7 0.2.7.3.698 Ho spita .3.505386 084.8 l .8 2022-05-07 2022-05-07 Travel 1.2.840.1 1.2.121.606 4197 967011 Methodi 00:00:00 00:00:[address] 3.430.2.7 0.2.7.3.698 Ho spita .3.221597 084.8 l .8 2022-05-01 2022-05-01 Office Lepsafia, 1.2.840.1 152769253 847585 3021 Methodi 15:15:00 16:26:38 [place] [address].1.[address] 3.430.2.7 Hospit a .3.859399 l .8 2022-05-01 2022-05-01 Office Lepsafia, 1.2.840.1 243481836 839058 5097 Methodi 15:15:00 16:26:38 [place] [address].1.[address] 3.430.2.7 Hospit a .3.412817 l .8 2022-05-01 2022-05-01 Patient Jimy, Kat 1.2.840.1 335832856 2100 795549 Methodi 00:00:00 00:00:[address] 3.430.2.7 Hospit a .3.361706 l .8 2022-05-01 2022-05-01 Patient Jimy, Kat 1.2.840.1 693671033 2100 660291 Methodi 00:00:00 00:00:[address] 3.430.2.7 Hospit a .3.977922 l .8 2022-04-30 2022-04-30 Patient Jimy, Kat 1.2.840.1 912093800 2100 347419 Methodi 00:00:00 00:00:[address] 3.430.2.7 Hospit a .3.936393 l .8 2022-04-30 2022-04-30 Patient Jimy, Kat 1.2.840.1 403327451 2100 632161 Methodi 00:00:00 00:00:[address] 3.430.2.7 Hospit a .3.640677 l .8 2022-04-26 2022-04-26 Office Sherri, 1.2.840.1 671083243 921 3983425 Methodi 13:00:00 13:39:29 Visit Kutr 88151.1.[address] [facility] 3.430.2.7 Hospit a .3.132973 l .8 2022-04-26 2022-04-26 Office Sherri, 1.2.840.1 532989890 809 5167427 Methodi 13:00:00 13:39:29 Visit Kurt 30563.1.[address] [facility] 3.430.2.7 Hospit a .3.610531 l .8 2022-04-25 2022-04-25 Travel 1.2.840.1 1.2.338.555 7105 579052 Methodi 00:00:00 00:00:[address] 3.430.2.7 0.2.7.3.698 Ho spita .3.558567 084.8 l .8 2022-04-25 2022-04-25 Travel 1.2.840.1 1.2.888.931 9656 905056 Methodi 00:00:00 00:00:[address] 3.430.2.7 0.2.7.3.698 Ho spita .3.865925 084.8 l .8 2022-04-24 2022-04-24 Office Samara, 1.2.840.1 631588758 080260 3568 Methodi 14:00:00 16:01:10 [place] [address].1.[address] 3.430.2.7 Hospit a .3.321330 l .8 2022-04-24 2022-04-24 Office Samara, 1.2.840.1 580884033 694969 8975 Methodi 14:00:00 16:01:10 [place] [address].1.[address] 3.430.2.7 Hospit a .3.316486 l .8 2022-04-22 2022-04-22 Patient Kat Ahn 1.2.840.1 [id number] 2099 333128 Methodi 00:00:00 00:00:[address] 3.430.2.7 Hospit a .3.836503 l .8 2022-04-22 2022-04-22 Patient Kat Ahn 1.2.840.1 445772065125678 Methodi 00:00:00 00:00:[address] 3.430.2.7 Hospit a .3.349873 l .8 2022-04-14 2022-04-19 [facility] 1.2.840.1 94540914 4 [id number] Methodi 13:45:00 18:26:00 Encounter Jack Zavalajan 67856.1.[address] [facility] 3.430.2.7 H ospita Lucero, Aquiles Hernandez .3.495750 l .8 2022-04-14 2022-04-19 [facility] 1.2.840.1 91564581 4 [id number] Methodi 13:45:00 18:26:00 Encounter Jack Zavalajan 85572.1.[address] [facility] 3.430.2.7 H ospita Lucero, Aquiles Hernandez .3.969384 l .8 2022-04-19 2022-04-19 Refill Lucero, 1.2.840.1 782249344 2100 835069 Methodi 00:00:00 00:00:[address] David 3.430.2.7 Hospit a .3.050659 l .8 2022-04-19 2022-04-19 Patient Zachery, 1.2.840.1 652373554 93487 24230 Methodi 00:00:00 00:00:00 Outreach Arielle 51832.1.[address] 3.430.2.7 Hospit a .3.571204 l .8 2022-04-19 2022-04-19 Refill Lucero, 1.2.840.1 234756478 2099 782081 Methodi 00:00:00 00:00:[address] David 3.430.2.7 Hospit a .3.331528 l .8 2022-04-19 2022-04-19 Patient Zachery, 1.2.840.1 578412949 42563 14279 Methodi 00:00:00 00:00:00 Outreach Arielle [address]394.1.[address] 3.430.2.7 Hospit a .3.316410 l .8 2022-04-15 2022-04-15 Patient Kat Ahn 1.2.840.1 2099 660882 Methodi 00:00:00 00:00:[address] 3.430.2.7 Hospit a .3.538871 l .8 2022-04-15 2022-04-15 Patient Kat Ahn 1.2.840.1 2099 928718 Methodi 00:00:00 00:00:[address] 3.430.2.7 Hospit a .3.294479 l .8 2022-04-14 2022-04-14 Travel 1.2.840.1 1.2.452.907 6717 807204 Methodi 00:00:00 00:00:[address] 3.430.2.7 0.2.7.3.698 Ho spita .3.230968 084.8 l .8 2022-04-14 2022-04-14 Travel 1.2.840.1 1.2.451.786 1136 507676 Methodi 00:00:00 00:00:[address] 3.430.2.7 0.2.7.3.698 Ho spita .3.768643 084.8 l .8 2022-04-08 2022-04-08 Patient Kat Ahn 1.2.840.1 2099718 Methodi 00:00:00 00:00:[address] 3.430.2.7 Hospit a .3.798863 l .8 2022-04-08 2022-04-08 Patient Kat Ahn 1.2.840.1 [id number] Methodi 00:00:00 00:00:[address] 3.430.2.7 Hospit a .3.076949 l .8 2022-04-08 2022-04-08 Patient Simón Cisneros 1.2.840.1 [id number] 21 [id number] Methodi 00:00:00 00:00:[address] 3.430.2.7 Hospit a .3.792383 l .8 2022-04-08 2022-04-08 Patient Kat Ahn 1.2.840.1 9833038872099718 Methodi 00:00:00 00:00:[address] 3.430.2.7 Hospit a .3.906432 l .8 2022-04-08 2022-04-08 Patient Kat Ahn 1.2.840.1 [id number] Methodi 00:00:00 00:00:[address] 3.430.2.7 Hospit a .3.519605 l .8 2022-04-08 2022-04-08 Patient Simón Cisneros 1.2.840.1 [id number] 21 [id number] Methodi 00:00:00 00:00:[address] 3.430.2.7 Hospit a .3.518506 l .8 2022-04-03 2022-04-03 Travel 1.2.840.1 1.2.072.438 3373 793922 Methodi 00:00:00 00:00:[address] 3.430.2.7 0.2.7.3.698 Ho spita .3.200569 084.8 l .8 2022-04-01 2022-04-01 Patient Kat Ahn 1.2.840.1 [id number] 2099 041538 Methodi 00:00:00 00:00:[address] 3.430.2.7 Hospit a .3.830159 l .8 2022-03-27 2022-03-27 Telephone Yoni, 1.2.840.1 [id number] 2099 358039 Methodi 00:00:00 00:00:[address] 3.430.2.7 Hospit a .3.155330 l .8 2022-03-27 2022-03-27 Telephone Yoni, 1.2.840.1 [id number] 2099 135017 Methodi 00:00:00 00:00:[address] 3.430.2.7 Hospit a .3.932982 l .8 2022-03-26 2022-03-26 Telephone Yoni, 1.2.840.1 662258801 2099 621527 Methodi 00:00:00 00:00:[address] 3.430.2.7 Hospit a .3.621608 l .8 2022-03-25 2022-03-25 Patient Kat Ahn 1.2.840.1 [id number] 2099 188612 Methodi 00:00:00 00:00:[address] 3.430.2.7 Hospit a .3.588424 l .8 2022-03-17 2022-03-23 [facility] 1.2.840 .1 [id number] [id number] Methodi 13:25:00 15:26:00 Encounter Malick Patel 17408.1.[address] 3.430.2.7 Hospit a .3.187517 l .8 2022-03-13 2022-03-13 Telephone Yoni, 1.2.840.1 [id number] 2099 672031 Methodi 00:00:00 00:00:[address] 3.430.2.7 [facility] a .3.922611 l .8 2021-12-10 2021-12-11 Outpatient CARLY, [facility] 044 [id number] 839 [place] 00:00:00 00:00:00 JAI [address] 2021-11-30 2021-11-30 Outpatient AQUILES, [facility] [id number] 7[address] [place] 00:00:00 00:00:00 CARMEN [address] 2021-10-26 2021-10-26 Outpatient YONI, [facility] [id number] 005 [place] 00:00:00 00:00:00 TIM 409 Method i 2021-10-12 2021-10-12 Outpatient AQUILES, [facility] [id number] 569 [place] 00:00:00 00:00:00 CARMEN [address] 2021-10-04 2021-10-04 Outpatient YONI, [facility] [id number] 537 [place] 00:00:00 00:00:00 TIM [address] 2021-10-04 2021-10-04 Outpatient YONI, [facility] [id number] 176 [place] 00:00:00 00:00:00 TIM [address] 2021-08-28 2021-08-28 Outpatient YONI, [facility] [id number] 090 [place] 00:00:00 00:00:00 TIM [address] 2021-08-09 2021-08-09 Outpatient YONI, [facility] [id number] 185 [place] 00:00:00 00:00:00 TIM 965 [facility] 2021-08-03 2021-08-03 Outpatient YONI, [facility] [id number] 597 [place] 00:00:00 00:00:00 TIM [address] 2020-11-07 2020-11-07 Outpatient YONI, [facility] [id number] 731 [place] 00:00:00 00:00:00 TIM [address] 2020-08-18 2020-08-18 Outpatient [facility] [id number] 607 [place] 00:00:00 00:00:[address] 2020-08-08 2020-08-10 Outpatient YONI, [facility] [id number] 022 [place] 00:00:00 00:00:00 TIM [address] 2020-08-08 2020-08-08 Outpatient EL RAO, [facility] 863 [id number] 12:00:52 15:27:06 GENOVEVA montoya 2020-07-28 2020-07-28 Outpatient [facility] [id number] 153 [place] 00:00:00 00:00:[address] 2020-07-25 2020-07-25 Outpatient YONI, [facility] [id number] 847 [place] 00:00:00 00:00:00 TIM [address] 2020-06-23 2020-06-27 Outpatient YONI, [facility] [id number] 864 [place] 00:00:00 00:00:00 TIM [address] 2020-05-25 2020-05-25 Outpatient YONI, [facility] [id number] 178 [place] 00:00:00 00:00:00 TIM [address] 2020-05-03 2020-05-03 Outpatient CARLY, [facility] [id number] 945 [place] 00:00:00 00:00:00 JAI [address] 2020-05-01 2020-05-01 Outpatient YONI, [facility] [id number] 333 [place] 00:00:00 00:00:00 TIM [address] 2020-05-01 2020-05-01 Outpatient CARLY, [facility] [id number] 334 [place] 00:00:00 00:00:00 JAI [address] 2020-04-27 2020-04-27 Outpatient YONI, [facility] [id number] 993 [place] 00:00:00 00:00:00 TIM [address] 2020-04-20 2020-04-20 Outpatient EL RAO, [facility] [id number] 10:41:50 13:17:58 GENOVEVA montoya 2020-03-22 2020-03-22 Outpatient EL RAO, [facility] [id number] 00:00:00 00:00:00 GENOVEVA montoya 2019-12-30 2019-12-31 Outpatient YONI, [facility] [id number] [address] [place] 00:00:00 00:00:00 TIM [address] 2019-10-26 2019-10-26 Outpatient YONI [facility] [id number] 627 [place] 00:00:00 00:00:00 TIM [address] Results Test Description Test Time Test Comments Results Result Comments Source ECG Pre/Post Op 2023-02-19 23:03:07 Test Item Value Reference Range Interpretation Comme nts Ventricular rate (test code = 253) 55 QRSD interval (test code = 260) 106 QT interval (test code = 264) 466 QTC interval (test code = 265) 445 QRS axis 1 (test code = 268) 8 T wave axis (test code = 270) -60 EKG impression (test code = 273) Junctional rhythm-Lateral infarct , age undetermined-Abnormal ECG-In automated comparison with ECG of 26-AUG-2022 16:24,-Lateral infarct is now present-T wave inversion no longer evident in Lateral leads- [facility] Pre/Post [id number] 23:03:07 Test Item Value Reference Range Interpretation Comments Ventricular rate (test 55 code = 253) QRSD interval (test 106 code = 260) QT interval (test code 466 = 264) QTC interval (test code 445 = 265) QRS axis 1 (test code = 8 268) T wave axis (test code -60 = 270) EKG impression (test Junctional code = 273) rhythm-Lateral infarct , age undetermined-Abnormal ECG-In automated comparison with ECG of 26-AUG-2022 16:24,-Lateral infarct is now present-T wave inversion no longer evident in Lateral leads- [facility] glycosylated hemoglobin (Hb A1C)2022-09-05 20:43:29 Test Item Value Reference Range Interpretation Comments POC Hemoglobin A1C (test code = 6.5 % 0217861) Lab Interpretation (test code = Abnormal 09623-1) [facility] glycosylated hemoglobin (Hb A1C)2022-09-05 20:43:29 Test Item Value Reference Range Interpretation Comments POC Hemoglobin A1C (test code = 6.5 % 6118013) Lab Interpretation (test code = Abnormal 33883-8) [facility] glycosylated hemoglobin (Hb A1C)2022-09-05 20:43:29 Test Item Value Reference Range Interpretation Comments POC Hemoglobin A1C (test code = 6.5 % 4100526) Lab Interpretation (test code = Abnormal 32293-2) [facility]2023-02-28 13:46:00 Test Item Value Reference Range Interpretation Comments POC glucose (test code 135 mg/dL 65-99 H Opera tor Name: Jermaine = [id number]) DianneDevice ID : [id number] able: [facility] Notified police chief deputy Interpretation Abnormal (test code = 43147-6) [facility]2023-02-28 13:46:00 Test Item Value Reference Range Interpretation Comments POC glucose (test code 135 mg/dL 65-99 H Opera tor Name: Jermaine = [id number]) DianneDevice ID : [id number] able: TM Notified police chief deputy Interpretation Abnormal (test code = 14526-9) [facility]2023-02-28 13:46:00 Test Item Value Reference Range Interpretation Comments POC glucose (test code 135 mg/dL 65-99 H Opera tor Name: Jermaine = 82463-3) DianneDevice ID : [id number] able: TM Notified police chief deputy Interpretation Abnormal (test code = 27184-3) [facility]2023-02-23 19:56:00 Test Item Value Reference Range Interpretation Comments Urine culture (test SEE COMMENT Bacteriu ely screen code = 6898198) negative. [facility]2023-02-23 19:56:00 Test Item Value Reference Range Interpretation Comments Urine culture (test SEE COMMENT Bacteriu ely screen code = 3841766) negative. [facility]2023-02-23 19:56:00 Test Item Value Reference Range Interpretation Comments Urine culture (test SEE COMMENT Bacteriu ely screen code = 2110201) negative. [facility] 12 zgty0219-09-14 02:06:32 Test Item Value Reference Range Interpretation [...] nonspecific T wave abnormality in Lateral leads- [address]2023-02-22 02:06:32 Test Item Value Reference Range Interpretation [...] nonspecific T wave abnormality in Lateral leads- [address]2023-02-22 02:06:32 Test Item Value Reference Range Interpretation [...] nonspecific T wave abnormality in Lateral leads- [facility] ED Preliminary Interpretation - Not an [id number] 07:05:51 Test Item Value Reference Range Interpretation Comments MIKAYLA (test code = MIKAYLA) Jakub Martinez MD 09/12/2022 7:12 [facility] ED Preliminary Interpretation - Not an OrderPerformed by: Jakub Martinez MDAuthorized by: Jakub Martinez MD ECG reviewed by ED Physician in the absence of a flame degreaser: yes Interpretation: Interpretation: abnormal Rate: ECG rate: 43 ECG rate assessment: bradycardic Rhythm: Rhythm: junctional QRS: QRS axis: LeftConduction: Conduction: normal ST segments: ST segments: NormalT waves: T waves: normal Comments: Low voltage Lab Interpretation Abnormal (test code = 82391-7) [facility] ED Preliminary Interpretation - Not an [id number] 07:05:51 Test Item Value Reference Range Interpretation Comments MIKAYLA (test code = MIKAYLA) Jakub Martinez MD 09/12/2022 7:12 [facility] ED Preliminary Interpretation - Not an OrderPerformed by: Jakub Martinez MDAuthorized by: Jakub Martinez MD ECG reviewed by ED Physician in the absence of a flame degreaser: yes Interpretation: Interpretation: abnormal Rate: ECG rate: 43 ECG rate assessment: bradycardic Rhythm: Rhythm: junctional QRS: QRS axis: LeftConduction: Conduction: normal ST segments: ST segments: NormalT waves: T waves: normal Comments: Low voltage Lab Interpretation Abnormal (test code = 18394-8) [facility] ED Preliminary Interpretation - Not an [id number] 07:05:51 Test Item Value Reference Range Interpretation Comments MIKAYLA (test code = MIKAYLA) Jakub Martinez MD 09/12/2022 7:12 [facility] ED Preliminary Interpretation - Not an OrderPerformed by: Jakub Martinez MDAuthorized by: Jakub Martinez MD ECG reviewed by ED Physician in the absence of a flame degreaser: yes Interpretation: Interpretation: abnormal Rate: ECG rate: 43 ECG rate assessment: bradycardic Rhythm: Rhythm: junctional QRS: QRS axis: LeftConduction: Conduction: normal ST segments: ST segments: NormalT waves: T waves: normal Comments: Low voltage Lab Interpretation Abnormal (test code = 56869-7) [facility] [id number] 01:46:47 Test Item Value Reference Range Interpretation Comments SARS-CoV-2 (COVID-19) RNA Not detected [Presence] in Respiratory specimen by YVETTE with probe detection (test code = 01025-2) Whether patient resides in a No congregate care setting (test code = 54106-5) Date and time of symptom onset Unknown (test code = 60176-3) Whether the patient was No hospitalized for condition of interest (test code = 02558-6) Whether the patient was admitted No to intensive care unit (ICU) for condition of interest (test code = 00250-8) Whether patient is employed in a No healthcare setting (test code = 46694-5) Whether the patient has symptoms No related to condition of interest (test code = 85221-0) status (test code = No 61849-6) [facility] [id number] 19:49:48 Test Item Value Reference Range Interpretation Comments Case number (test code = [id number]) Surgical pathology See link below for report (test code = PDF Lab Report 2255) Result status (test code This is Final Report = [id number]) for [id number] [id number] 19:49:48 Test Item Value Reference Range Interpretation Comments Case number (test code = [id number]) Surgical pathology See link below for report (test code = PDF Lab Report 2255) Result status (test code This is Final Report = [id number]) for [id number] [place], [place] [address]urgical pathology [id number] 19:49:48 Test Item Value Reference Range Interpretation Comments Case number (test code = [id number]) Surgical pathology See link below for report (test code = PDF Lab Report 2255) Result status (test code This is Final Report = [id number]) for [id number] [id number] 19:48:55 Test Item Value Reference Range Interpretation Comments [facility] NAME ([facility] [place] code = [facility]) SUPPLIER PHONE (test code = 6416) ORDER STATUS (test code Delivery Successful = 6417) DELIVERY NOTE (test code = 6419) REQUESTED DELIVEY DATE 04/18/2022 (test code = 6420) ITEM DESCRIPTION (test Swing-Away Foot Rests Qty: 1 code = 6423) EXPECTED DELIVERY DATE 04/19/2022 (test code = 6421) ACTUAL DELIVERY DATE 04/19/2022 (test code = 6422) [facility] [id number] 19:48:55 Test Item Value Reference Range Interpretation Comments SUPPLIER NAME ([facility] [place] code = 6415) SUPPLIER PHONE (test code = 6416) ORDER STATUS (test code Delivery Successful = 6417) DELIVERY NOTE (test code = 6419) REQUESTED DELIVEY DATE 04/18/2022 (test code = 6420) ITEM DESCRIPTION (test Swing-Away Foot Rests Qty: 1 code = 6423) EXPECTED DELIVERY DATE 04/19/2022 (test code = 6421) ACTUAL DELIVERY DATE 04/19/2022 (test code = 6422) [facility] [id number] 19:48:55 Test Item Value Reference Range Interpretation Comments SUPPLIER NAME [facility] [place] code = 6415) SUPPLIER PHONE (test code = 6416) ORDER STATUS (test code Delivery Successful = 6417) DELIVERY NOTE (test code = 6419) REQUESTED DELIVEY DATE 04/18/2022 (test code = 6420) ITEM DESCRIPTION (test Swing-Away Foot Rests Qty: 1 code = 6423) EXPECTED DELIVERY DATE 04/19/2022 (test code = 6421) ACTUAL DELIVERY DATE 04/19/2022 (test code = 6422) [facility] RNA [Presence] in Respiratory specimen by YVETTE with probe [id number] 23:20:03 Test Item Value Reference Range Interpretation Comments SARS-CoV-2 (COVID-19) RNA Not detected [Presence] in Respiratory specimen by YVETTE with probe detection (test code = 35727-8) Whether patient is employed in a Unknown healthcare setting (test code = 15918-7) Whether the patient has symptoms Unknown related to condition of interest (test code = 22137-9) Whether the patient was Unknown hospitalized for condition of interest (test code = 92895-8) Whether the patient was admitted Unknown to intensive care unit (ICU) for condition of interest (test code = 86203-0) Whether patient resides in a Unknown congregate care setting (test code = 48034-0) status (test code = Unknown 16756-3) Date and time of symptom onset Unknown (test code = 93737-3) [facility] RODRIGUEZSARS-CoV-2 (COVID-19) RNA [Presence] in Respiratory specimen by YVETTE with probe [id number] 18:36:15 Test Item Value Reference Range Interpretation Comments SARS-CoV-2 (COVID-19) RNA Not detected [Presence] in Respiratory specimen by YVETTE with probe detection (test code = 07270-0) Whether patient is employed in a Unknown healthcare setting (test code = 42487-5) Whether the patient has symptoms Unknown related to condition of interest (test code = 47655-2) Whether the patient was Unknown hospitalized for condition of interest (test code = 65238-6) Whether the patient was admitted Unknown to intensive care unit (ICU) for condition of interest (test code = 21720-6) Whether patient resides in a Unknown congregate care setting (test code = 27052-2) status (test code = Unknown 23239-5) Date and time of symptom onset Unknown (test code = 85373-5) EDGAR VALLEJORS-CoV-2 (COVID-19) RNA [Presence] in Respiratory specimen by YVETTE with probe [id number] 20:41:33 Test Item Value Reference Range Interpretation Comments SARS-CoV-2 (COVID-19) RNA Not detected Not-Detected [Presence] in Respiratory specimen by YVETTE with probe detection (test code = 56541-8) EDGAR RODRIGUEZ
[2023-04-08 23:51] LABS: Absolute Lymphocytes (CBC) 0.9 K/uL (0.7-4.9); Hematocrit 23.1 % (39.6-49.0); Lymphocytes % 4.8 % (15.3-44.8); MCV 96.3 fL (80-100); MPV 9.4 fL (7.6-11.3); Platelets 80 thou/uL (152-406)
[2023-04-08 23:53] LABS: Protime INR 1.47
[2023-04-09 00:04] LABS: Albumin 2.6 g/dL (3.4-5.0); Bilirubin Total 1.4 mg/dL (0.2-1.0); Potassium 3.4 mEq/L (3.5-5.1); Protein, Total 6.6 g/dL (6.4-8.2)
[2023-04-09 00:28] LABS: Anisocytosis 2+; Blood Morphology Comment NOTED (NOT SEEN); Platelet Estimate DECR; Polychromasia SLIGHT
[2023-04-09] MEDS ORDERED: FAMOTIDINE 20 MG/2 ML VIAL IV ONE (00:52)
[2023-04-09] MEDS ORDERED: VANCOMYCIN 1 GM/VIAL ONE (00:56)
[2023-04-09] MEDS ORDERED: CEFEPIME 1 GM/VIAL ONE (00:57)
[2023-04-09] MEDS ORDERED: NA CHLORIDE 0.9% 100 ML ONE (00:57)
[2023-04-09] MEDS ORDERED: NA CHLORIDE 0.9% 250 ML ONE (00:57)
--- NOTE | 2023-04-09 01:04 | ER ---
Nurse's Notes [facility] Name: Pierre Bray Age: 82 yrs Sex: Male : 1940 Arrival Date: 04/08/2023 Time: 22:39 Bed 6 Private MD: Diagnosis: Fever, unspecified;Elevated white blood cell count;Weakness Presentation: 04/08 22:52 Chief complaint: Patient states: Fever of 103f onset today. 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 Pt also reports increased shortness of breath and increased bilateral leg swelling. Pts son states pt has been more weak. Coronavirus screen: Vaccine status: Patient reports receiving the 2nd dose of the covid vaccine. Client denies travel out of the [place] in the last 14 days. Ebola Screen: Patient denies travel to an Ebola-affected area in the 21 days before illness onset. No symptoms or risks identified at this time. Initial Sepsis Screen: Does the patient meet any 2 criteria? No. Patient's initial sepsis screen is negative. Does the patient have a suspected source of infection? No. Patient's initial sepsis screen is negative. Risk Assessment: Do you want to hurt yourself or someone else? Patient reports no desire to harm self or others. Onset of symptoms was April 08, 2023. 22:52 Method Of Arrival: Wheelchair cm10 22:52 Acuity: TIN 3 cm10 Triage Assessment: 23:00 General: Appears ill, Behavior is calm, cooperative, appropriate for age. Pain: Denies bp pain. EENT: No deficits noted. Respiratory: Reports shortness of breath Onset: The symptoms/episode began/occurred today, the patient has mild shortness of breath. Historical: - Allergies: 22:51 Latex; cm10 - Home Meds: 04/09 01:31 metformin 500 mg Oral Tablet, Extended Release 24 hr daily [Active]; midodrine 5 mg cm10 oral tablet 2 times per day [Active]; sildenafil oral 20 mg tablet 2 times per day [Active]; clopidogrel 75 mg oral tablet daily [Active]; furosemide 20 mg Oral tablet daily [Active]; rosuvastatin 10 mg oral tablet daily [Active]; cyanocobalamin (vitamin B-12) 1,000 mcg oral capsule every month [Active]; - PMHx: 04/08 22:51 CHF; diabetes mellitus; Hypercholesterolemia; hypotension; cm10 04/09 03:34 Hypertensive disorder; rv - Immunization history:: Adult Immunizations up to date. - Social history:: Smoking status: Patient denies any tobacco usage or history of. Screenin:00 [facility] ED Fall Risk Assessment (Adult) History of falling in the last 3 months, bp including since admission No falls in past 3 months (0 pts). Abuse screen: Denies threats or abuse. Denies injuries from another. Nutritional screening: No deficits noted. Tuberculosis screening: No symptoms or risk factors identified. Assessment: 04/08 23:00 General: SEE TRIAGE NOTE. bp 04/09 00:52 Reassessment: Patient appears in no apparent distress at this time. Patient is alert, bp oriented x 3, equal unlabored respirations, skin warm/dry/pink. Cardiovascular: Rhythm is sinus rhythm. Respiratory: Airway is patent Respiratory effort is even, unlabored, Breath sounds are clear bilaterally. 01:40 Reassessment: Patient appears in no apparent distress at this time. Patient is alert, bp oriented x 3, equal unlabored respirations, skin warm/dry/pink. Vital Signs: 04/08 22:52 BP 137 / 106; Pulse 77; Resp 18 S; Temp 98.9; Pulse Ox 98% on R/A; Weight 113.4 kg (R); cm10 Height 6 ft. 7 in. (R); 04/09 00:53 BP 85 / 46; Pulse 61; Resp 15; Pulse Ox 96% on R/A; bp 01:39 BP 100 / 53; Pulse 64; Resp 16; Pulse Ox 98% ; bp 03:01 BP 96 / 52; Pulse 63; Resp 16; Pulse Ox 99% on R/A; rv 04/08 22:52 Body Mass Index 28.16 (113.40 kg, 200.66 cm) cm10 ED Course: 04/08 22:40 Patient arrived in ED. jj6 22:42 Tangela Cormier FNP-C [facility]. kb 22:42 Pan Peacock MD is Attending Physician. kb 22:43 Maurice Palomares, JU is Primary Nurse. bp 22:53 Triage completed. cm10 22:54 Arm band placed on Patient placed in an exam room, on a stretcher. cm10 23:30 Inserted saline lock: 22 gauge in right forearm, using aseptic technique. Blood bp collected. 23:33 Chest Single View XRAY In Process Unspecified. EDMS 04/09 00:00 Patient has correct armband on for positive identification. Bed in low position. Call bp light in reach. Side rails up X2. Adult w/ patient. 00:06 US Extremity Venous W Compression Medardo In Process Unspecified. EDMS 01:02 Zurdo Bautista MD is Hospitalizing Provider. kb 03:32 No provider procedures requiring assistance completed. Patient admitted, IV remains in rv place. 03:33 Provided Education on: SEPSIS. rv Administered Medications: 00:42 Drug: Famotidine IVP 20 mg IVP once; dilute with 10 mL 0.9% NaCl; give over 2 minutes rv Route: IVP; Site: right forearm; 02:59 Follow up: Response: No adverse reaction rv 00:48 Drug: Cefepime IVPB 1 grams IVPB at 200 ml/hr once over 30 mins; (mix in NS 100 mL) bp Route: IVPB; Rate: 200 ml/hr; Infused Over: 30 mins; Site: right forearm; 02:58 Follow up: Response: No adverse reaction; IV Status: Completed infusion; IV Intake: rv 100ml 01:38 Drug: vancoMYCIN IVPB 1 grams IVPB once over 2 hrs Route: IVPB; Infused Over: 2 hrs; bp Site: right forearm; 02:58 Follow up: Response: No adverse reaction; IV Status: Completed infusion; IV Intake: rv 250ml 02:58 Drug: midodrine 5 mg PO once Route: PO; rv Medication: 03:34 VIS not applicable for this client. rv Intake: 02:58 IV: 100ml; Total: 100ml. rv 02:58 IV: 250ml; Total: 350ml. rv Outcome: 01:03 Decision to Hospitalize by Provider. kb 03:33 Admitted to ICU accompanied by tech, via stretcher, room 4, with chart, Other MED SURG rv PATIENT Report called to ABDULLAHI 03:33 Condition: stable 03:33 Instructed on the need for admit, 03:34 Patient left the ED. rv Signatures: Dispatcher [employer] EDLA Tangela Cormier, NATALIA WELCH-Maurice Keys RN RN bp Jluis Sage, JU RN rv Talia, Brandy jj6 Wilmer, Alyssia, RN RN cm10
--- NOTE | 2023-04-09 01:04 | EDPHYS ---
Physician Documentation [facility] Name: Pierre Bray Age: 82 yrs Sex: Male : 1940 Arrival Date: 04/08/2023 Time: 22:39 Bed 6 Private MD: ED Physician Pan Peacock HPI: 04/08 22:56 This 82 yrs old Male presents to ER via Wheelchair with complaints of Fever, Shortness kb Of Breath. 22:56 The patient has shortness of breath at rest. Onset: The symptoms/episode began/occurred kb 1 month(s) ago. Duration: The symptoms are continuous. The patient's shortness of breath is aggravated by nothing, is alleviated by nothing. Associated signs and symptoms: Pertinent positives: fever. Severity of symptoms: At their worst the symptoms were moderate in the emergency department the symptoms are unchanged. The patient has not experienced similar symptoms in the past. The patient has not recently seen a physician. Pt reports shortness of breath for about a month. Reports bilateral lower extremities have been swelling over the last few days and fever started this afternoon. . Historical: - Allergies: 22:51 Latex; cm10 - Home Meds: 04/09 01:31 metformin 500 mg Oral Tablet, Extended Release 24 hr daily [Active]; midodrine 5 mg cm10 oral tablet 2 times per day [Active]; sildenafil oral 20 mg tablet 2 times per day [Active]; clopidogrel 75 mg oral tablet daily [Active]; furosemide 20 mg Oral tablet daily [Active]; rosuvastatin 10 mg oral tablet daily [Active]; cyanocobalamin (vitamin B-12) 1,000 mcg oral capsule every month [Active]; - PMHx: 04/08 22:51 CHF; diabetes mellitus; Hypercholesterolemia; hypotension; cm10 04/09 03:34 Hypertensive disorder; rv - Immunization history:: Adult Immunizations up to date. - Social history:: Smoking status: Patient denies any tobacco usage or history of. ROS: 04/08 22:53 Abdomen/GI: Negative for abdominal pain, nausea, vomiting, diarrhea, and constipation, kb Constitutional: Positive for fever, Respiratory: Positive for shortness of breath, Neuro: Positive for weakness, All other systems are negative, Exam: 22:53 Constitutional: This is a well developed, well nourished patient who is awake, alert, kb and in no acute distress. Head/Face: Normocephalic, atraumatic. ENT: Moist Mucous membranes Cardiovascular: Regular rate Respiratory: Respirations even and unlabored. No increased work of breathing. Talking in full sentences Abdomen/GI: Soft, non-tender. No distention Skin: Warm, dry with normal turgor. Normal color. MS/ Extremity: Pulses equal, no cyanosis. Neurovascular intact. Full, normal range of motion. 22:53 Cardiovascular: Edema: pedal edema, that is moderate, 22:53 Neuro: Orientation: is normal, Mentation: is normal, Gait: is unsteady, Vital Signs: 22:52 BP 137 / 106; Pulse 77; Resp 18 S; Temp 98.9; Pulse Ox 98% on R/A; Weight 113.4 kg (R); cm10 Height 6 ft. 7 in. (R); 04/09 00:53 BP 85 / 46; Pulse 61; Resp 15; Pulse Ox 96% on R/A; bp 01:39 BP 100 / 53; Pulse 64; Resp 16; Pulse Ox 98% ; bp 03:01 BP 96 / 52; Pulse 63; Resp 16; Pulse Ox 99% on R/A; rv 04/08 22:52 Body Mass Index 28.16 (113.40 kg, 200.66 cm) cm10 MDM: 04/08 22:42 Patient medically screened. kb 22:55 Differential diagnosis: flu, covid, chf, pe, pneumonia. Data reviewed: vital signs, kb nurses notes. Historians other than the Patient: Daughter/Son: son. 04/09 01:32 Consideration of Admission/Observation Patient was admitted/placed on observation. kb Escalation of care including admission/observation considered. Management of patient was discussed with the following: Hospitalist: MELISSA Lanza accepts pt under Dr Bautista. Counseling: I had a detailed discussion with the patient and/or guardian regarding the historical points, exam findings, and any diagnostic results supporting the discharge/admit diagnosis, lab results, radiology results, the need for further work-up and treatment in the hospital. 04/08 22:51 Order name: Blood Culture Adult (2) kb 04/08 22:51 Order name: CBC with Diff; Complete Time: 00:30 kb 04/08 22:51 Order name: CMP; Complete Time: 00:27 kb 04/08 22:51 Order name: Lactate w/ 2H reflex if indic.; Complete Time: 00:27 kb 04/08 22:51 Order name: Protime (+inr); Complete Time: 00:27 kb 04/08 22:51 Order name: Ptt, Activated; Complete Time: 00:27 kb 04/08 22:51 Order name: BNP; Complete Time: 00:27 kb 04/08 22:51 Order name: Flu; Complete Time: 00:27 kb 04/08 22:51 Order name: COVID-19 SARS RT PCR; Complete Time: 00:27 kb 04/09 00:08 Order name: Manual Differential; Complete Time: 00:30 EDMS 04/09 00:35 Order name: Urinalysis w/ reflexes kb 04/08 22:51 Order name: Chest Single View XRAY kb 04/08 22:51 Order name: US Extremity Venous W Compression Medardo kb 04/09 00:45 Order name: CT Abd/Pelvis - Without Contrast kb 04/08 22:51 Order name: EKG; Complete Time: 22:51 kb 04/09 01:07 Order name: CONS Physician Consult EDMS 04/08 22:51 Order name: Accucheck; Complete Time: 23:25 kb 04/08 22:51 Order name: Cardiac monitoring; Complete Time: 23:25 kb 04/08 22:51 Order name: EKG - Nurse/Tech; Complete Time: 23:25 kb 04/08 22:51 Order name: IV Saline Lock - Large Bore; Complete Time: 23:25 kb 04/08 22:51 Order name: Labs collected and sent; Complete Time: 23:25 kb 04/08 22:51 Order name: O2 Per Protocol; Complete Time: 23:25 kb 04/08 22:51 Order name: O2 Sat Monitoring; Complete Time: 23:25 kb 04/08 22:51 Order name: Vital Signs; Complete Time: 23:25 kb Administered Medications: 00:42 Drug: Famotidine IVP 20 mg IVP once; dilute with 10 mL 0.9% NaCl; give over 2 minutes rv Route: IVP; Site: right forearm; 02:59 Follow up: Response: No adverse reaction rv 00:48 Drug: Cefepime IVPB 1 grams IVPB at 200 ml/hr once over 30 mins; (mix in NS 100 mL) bp Route: IVPB; Rate: 200 ml/hr; Infused Over: 30 mins; Site: right forearm; 02:58 Follow up: Response: No adverse reaction; IV Status: Completed infusion; IV Intake: rv 100ml 01:38 Drug: vancoMYCIN IVPB 1 grams IVPB once over 2 hrs Route: IVPB; Infused Over: 2 hrs; bp Site: right forearm; 02:58 Follow up: Response: No adverse reaction; IV Status: Completed infusion; IV Intake: rv 250ml 02:58 Drug: midodrine 5 mg PO once Route: PO; rv Disposition Summary: 04/09/23 01:03 Hospitalization Ordered Notes: Hospitalization Status: Inpatient Admission kb Provider: Zurdo Bautista Condition: Stable kb Problem: new kb Symptoms: are unchanged kb Bed/Room Type: Standard kb Location: Intensive Care Unit(04/09/23 03:19) cg Room Assignment: 4-(04/09/23 03:19) cg Diagnosis - Fever, unspecified kb - Elevated white blood cell count kb - Weakness kb Forms: - Medication Reconciliation Form kb - SBAR form kb - Leadership Thank You Letter kb Signatures: Dispatcher [employer] EDTangela Moralez, MOTHER BABY RN-C MOTHER BABY RN-Annelise Lugo RN RN Maurice Palomares, RN RN bp Jluis Sage, RN RN rv Alyssia Guillen, RN RN cm10 Corrections: (The following items were deleted from the chart) 03:19 01:03 Telemetry/MedSurg (Inpatient) kb cg 03:19 01:03 kb cg
--- NOTE | 2023-04-09 01:22 | P.HP ---
Certification for Inpatient Patient admitted to: Inpatient With expected LOS: <2 Midnights Patient will require the following post-hospital care: None Practitioner: I am a practitioner with admitting privileges, knowledge of patient current condition, hospital course, and medical plan of care. Services: Services provided to patient in accordance with Admission requirements found in Title 42 Section 412.3 of the Code of Federal Regulations Patient History Date of Service: 04/09/23 Reason for admission: fever History of Present Illness: 82-year-old male with a past medical history of chronic diastolic congestive heart failure, noninsulin-dependent diabetes, hyperlipidemia, hypertension, presents to the emergency room with fever and shortness of breath. He reports symptoms started about a month ago and has been getting progressively worse. Shortness of breath is worse with exertion, worse while lying flat. He reports associated fever, reports bilateral lower extremity edema that is worse over the last few days. He reports associated weakness. He denies chest pain, nausea vomiting, abdominal pain, dysuria, he reports recently being treated with skin cancer, due on 6 weeks of radiation. He reports weakness started after radiation treatments. Was also recently treated for pneumonia. Plan to admit for acute on chronic heart failure, leukocytosis, lab evaluation WBCs 19.10, left shift 81.3, elevated lactic 2.7 normocytic anemia hemoglobin 7.5, 23.1, thrombocytopenia platelets 80, acute on chronic kidney injury BUN 29 creatinine 1.50, estimated GFR 46. proBNP 04389, flu AMB negative COVID-negative, chest x- ray pending, UA pending CT of the abdomen pelvis ordered Allergies No Known Allergies Allergy (Unverified 02/06/23 22:00) Home Medications: Benzonatate [Tessalon Perle*] 100 mg PO TID 02/08/23 Lovastatin 20 mg PO BEDTIME 02/08/23 Metoprolol Succinate 25 mg PO BID 02/08/23 Potassium Chloride [Klor-Con 10] 20 meq PO DAILY 02/08/23 Tramadol HCl 100 mg PO Q6H 02/08/23 oxyBUTYnin chloride [Ditropan Xl] 5 mg PO BIDP PRN 02/08/23 Furosemide [Lasix*] 20 mg PO DAILY #30 tab 02/11/23 Hydrocodone 7.5/APAP 325 [[place] 7.5/325 mg*] 1 tab PO Q12H PRN #20 tab 02/11/23 Silver Sulfadiazine Crm [Silvadene*] 1 appl TOP BID #1 jar 02/11/23 levoFLOXacin [Levaquin*] 750 mg PO DAILY #5 tab 02/11/23 Docusate [Colace Cap*] 100 mg PO BID #60 cap 03/11/23 Ferrous Gluconate 324 mg PO Q12H #60 tab 03/11/23 Midodrine HCl [Proamatine*] 5 mg PO BID #60 tab 03/11/23 Mupirocin Oint [Bactroban 2% Ointment] 22 appl TOP TID #1 ea 03/11/23 Pantoprazole [Protonix Tab*] 40 mg PO BIDAC #60 tab 03/11/23 - Past Medical/Surgical History Diabetic: Yes -: Chronic diastolic CHF, pulmonary hypertension -: Diabetes mellitus type [id number] -: Hypertension -: Hyperlipidemia -: Squamous cell carcinoma -: Multiple orthopedic surgeries -: Bilateral knee -: Back surgery -: Removal/biopsy squamous cell carcinoma Psychosocial/ Personal History: Patient lives at home, alone is retired. - Family History Father -: Heart disease, Lung disease, Cancer Notes: Lung cancer, CHF Mother -: Heart disease, Hypertension, Cancer Notes: Unknown cancer, CHF - Social History Alcohol use: No CD- Drugs: No Caffeine use: Yes Review of Systems 10-point ROS is otherwise unremarkable Physical Examination - Physical Exam General: Alert, In no apparent distress, Oriented x3 HEENT: Atraumatic, Normocephalic, PERRLA Neck: Supple, 2+ carotid pulse no bruit Respiratory: Normal air movement, Diminished Cardiovascular: Normal S1 S2, Other (+2 lower extremity edema) Capillary refill: <2 Seconds Gastrointestinal: Normal bowel sounds, Non-distended Musculoskeletal: No clubbing, Other (Bilateral lower extremity weakness that is chronic from chronic back pain) Integumentary: No rashes, No breakdown Neurological: Normal speech, Normal strength at 5/5 x4 extr, Normal tone, Sensation intact - Studies Laboratory Data (last 24 hrs) 04/08/23 04/08/23 04/08/23 23:25 23:25 23:25 WBC 19.10 H Hgb 7.5 L Hct 23.1 L Plt Count 80 L PT 16.2 H INR 1.47 APTT 31.6 Sodium 130 L Potassium 3.4 L BUN 29 H Creatinine 1.50 H Glucose 160 H Total Bilirubin 1.4 H AST 17 ALT 19 Alkaline Phosphatase 121 H Microbiology Data (last 24 hrs): 04/08/23 23:21 Nasopharnyx Influenza Type A Antigen Screen - Final 04/08/23 23:21 Nasopharnyx Influenza Type B Antigen Screen - Final Assessment and Plan - Plan Assessment: acute on chronic diastolic congestive heart failure/pulmonary hypertension Leukocytosis acute Acute on chronic kidney injury-likely secondary from prerenal congestive heart failure Hypotension Normocytic anemia Diabetes mellitus type [id number] Hyperlipidemia Constipation DVT prophylaxis Plan: acute on chronic diastolic congestive heart failure/pulmonary hypertension Leukocytosis reactive from CHF ? WBCs 19.10, left shift 81.3, elevated lactic 2.7 Cardiology consult, trend troponin, BNP Prior echocardiogram with left ventricular ejection fraction greater than 60% with hyperdynamic left ventricle, pulmonary hypertension. proBNP 19682, flu AMB negative COVID-negative, chest x-ray pending, UA pending CT of the abdomen pelvis ordered, Doppler ultrasound ordered Hypotension Acute on chronic kidney injury BUN 29 creatinine 1.50, estimated GFR 46. Anemia normocytic anemia hemoglobin 7.5, 23.1, thrombocytopenia platelets 80, Diabetes mellitus type [id number] ACHS Accu-Chek, sliding scale insulin Hyperlipidemia Constipation Continue home medications. DVT PPX: SCDs Cardiac diet Full code Discharge Plan: Home Plan to discharge in: 48 Hours - Advance Directives Does patient have a Living Will: No Does patient have a Durable POA for Healthcare: No - Code Status/Comfort Care Code Status: Full Code Physician Review: Patient Assessed, Agree with Above Assessment and Plan Critical Care: No
[2023-04-09] MEDS ORDERED: MIDODRINE HCL 5 MG TABLET ONE (03:06)
[2023-04-09] MEDS ORDERED: ONDANSETRON 4 MG/2 ML VIAL IV PRN (03:17)
[2023-04-09] MEDS ORDERED: ACETAMINOPHEN 500 MG TAB PO PRN (03:17)
[2023-04-09] MEDS: FUROSEMIDE 40 MG/4 ML VIAL IV SCH ×3 (03:17→17:31)
[2023-04-09] MEDS: DOXYCYCLINE 100 MG in NA CHLORIDE 0.9% 100 ML IVPB SCH ×2 (03:57→16:34)
[2023-04-09 04:04] VITALS: BMI 28.1
[2023-04-09 04:45] LABS: Absolute Lymphocytes (CBC) 1.2 K/uL (0.7-4.9); Hematocrit 24.2 % (39.6-49.0); Lymphocytes % 5.6 % (15.3-44.8); MCV 96.5 fL (80-100); MPV 9.7 fL (7.6-11.3); Platelets 81 thou/uL (152-406); RBC Red Blood Cell Count 2.51 M/uL (4.33-5.43)
[2023-04-09 05:11] LABS: Albumin 2.4 g/dL (3.4-5.0); Bilirubin Total 1.6 mg/dL (0.2-1.0); Potassium 4.1 mEq/L (3.5-5.1); Protein, Total 6.4 g/dL (6.4-8.2)
[2023-04-09 05:14] LABS: Troponin High Sensitivity 1124.2 pg/mL (<58.9)
[2023-04-09] MEDS ORDERED: ENOXAPARIN 60 MG/0.6 ML SQ ONE (05:24)
[2023-04-09] MEDS ORDERED: METOPROLOL XL 25 MG TAB PO SCH (09:00)
[2023-04-09] MEDS: SPIRONOLACTONE 25 MG TABLET PO SCH (09:00)
[2023-04-09] MEDS: CEFEPIME 2 GM in NA CHLORIDE 0.9% 100 ML IV SCH ×2 (11:00→20:28)
--- NOTE | 2023-04-09 11:37 | RAD REPORT ---
EXAM DESCRIPTION: CT Abdomen and Pelvis Without Intravenous Contrast CLINICAL HISTORY: The patient is 82 years old and is Male; ABD PAIN [facility] MAIN TECHNIQUE: Axial computed tomography images of the abdomen and pelvis without intravenous contrast. Sagittal and coronal reformatted images were created and reviewed. This CT exam was performed usi ng one or more of the following dose reduction techniques: automated exposure control, adjustment o f the mA and/or kV according to patient size, and/or use of iterative reconstruction technique. COMPARISON: 03/05/2023 CT chest abdomen pelvis with contrast FINDINGS: LUNG BASES: Unremarkable. No mass. No consolidation. HEART: Moderate aortic valve calcifications. Dense mitral annular calcification. ABDOMEN: LIVER: Micronodular appearance of the hepatic margin, suspicious for hepatic cirrhosis. GALLBLADDER AND BILE DUCTS: Cholelithiasis with contracted appearance of the gallbladder and relati ve gallbladder wall thickening. No ductal dilation. PANCREAS: Unremarkable. No ductal dilation. SPLEEN: Unremarkable. No splenomegaly. ADRENALS: Unremarkable. No mass. KIDNEYS AND URETERS: Unremarkable. No obstructing stones. No hydronephrosis. STOMACH AND BOWEL: Descending and sigmoid colonic diverticulosis without evidence of acute divert iculitis. No evidence of small or large bowel obstruction. PELVIS: APPENDIX: No findings to suggest acute appendicitis. BLADDER: Unremarkable. No stones. REPRODUCTIVE: Partially visualized small bilateral hydroceles. ABDOMEN and PELVIS: INTRAPERITONEAL SPACE: Trace perihepatic free fluid and trace additional free fluid demonstrated al jordyn the bilateral pericolic gutters. BONES/JOINTS: Total right hip arthroplasty partially visualized. L3 and L4 laminectomy changes redemonstrated with multilevel spondylosis, but no acute osseou s abnormality. No dislocation. SOFT TISSUES: Partially calcified, partially visualized intramuscular lipoma within the proximal an terior left thigh musculature. VASCULATURE: Dense multivessel coronary calcifications. Moderate abdominal aortic calcifie d atherosclerosis without aneurysmal dilatation. LYMPH NODES: Moderate diffuse central mesenteric edema with multiple prominent mesenteric lymph nod es, slightly increased compared to prior exam. IMPRESSION: 1. 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 Mild anasarca. Possible etiologies include decreased cardiac functi on, sequela of portal venous hypertension, or hypoproteinemia/decreased intravascular osmotic fractur e. Clinical correlation recommended. 2. Cholelithiasis with contracted appearance of the gallbladder and relative gallbladder wall thick ening. Suspected artifactual or reactive in the setting of ascites and mesenteric edema. 3. Otherwise, allowing for lack of intravenous contrast, no acute abnormality within the abdomen or pelvis. 4. Partially calcified, partially visualized intramuscular lipoma within the proximal anterior left thigh musculature. Electronically signed by: Gallo Walters MD 04/09/2023 2:05 AM CDT Due to temporary technical issues with the PACS/Fluency reporting system, reports are being signed by the in house radiologist without review as a courtesy to ensure prompt reporting. The interpreting r adiologist is fully responsible for the content of the report.
--- NOTE | 2023-04-09 12:46 | RAD REPORT ---
EXAM DESCRIPTION: US Duplex Bilateral Lower Extremities Veins CLINICAL HISTORY: The patient is 82 years old and is Male; SWELLING TECHNIQUE: Real-time duplex ultrasound scan of the bilateral lower extremity veins integrating B-mod e two-dimensional vascular structure, Doppler spectral analysis, color flow Doppler imaging and compr ession. COMPARISON: No relevant prior studies available. FINDINGS: Right deep veins: Unremarkable. No DVT in the visualized common femoral, femoral, or p opliteal veins. The veins demonstrate normal color flow, are normally compressible where visualized , with normal phasic flow and/or augmentation response. Left deep veins: Unremarkable. No DVT in the visualized common femoral, femoral, or popliteal v eins. The veins demonstrate normal color flow, are normally compressible where visualized, with nor mal phasic flow and/or augmentation response. Soft tissues: Soft tissue edema. IMPRESSION: No evidence of DVT in the bilateral lower extremity veins. Electronically signed by: Marino Wright MD 04/09/2023 12:27 AM CDT Due to temporary technical issues with the PACS/Fluency reporting system, reports are being signed by the in house radiologist without review as a courtesy to ensure prompt reporting. The interpreting r adiologist is fully responsible for the content of the report.
--- NOTE | 2023-04-09 13:03 | RAD REPORT ---
EXAM DESCRIPTION: Chest Single View CLINICAL HISTORY: DYSPNEA COMPARISON: None. FINDINGS: Single frontal radiograph view of the chest. Cardiomediastinal silhouette: Cardiomegaly. Lungs: Pulmonary vascular congestion. Low lung volumes. No pneumothorax. Bones: Degenerative change of the shoulders and spine. Ill-defined sclerotic focus in the proximal ri ght humerus possibly representing a enchondroma. Upper abdomen: No abnormality identified. IMPRESSION: Cardiomegaly with pulmonary vascular congestion. Electronically signed by: Rick Medina 04/08/2023 11:46 PM CDT Due to temporary technical issues with the PACS/Fluency reporting system, reports are being signed by the in house radiologist without review as a courtesy to ensure prompt reporting. The interpreting r adiologist is fully responsible for the content of the report.
[2023-04-09] MEDS ORDERED: CALCIUM CARBONATE CHEW 500MG TAB PO SCH (15:00)
--- NOTE | 2023-04-09 16:37 | EKG ---
Test Date: 2023-04-08 Test Time: 23:18:39 Vp Foundation: ERNST MEASUREMENT RESULTS: Intervals: Rate: 73 [place]: QRSD: 102 QT: 450 QTc: 495 [place]: P: [place]: QRS: 29 T: 55 INTERPRETIVE STATEMENTS: Sinus rhythm with occasional premature ventricular complexes Lateral infarct, age undetermined Abnormal ECG Compared to ECG 03/08/2023 17:44:24 Ventricular premature complex(es) now present Atrial fibrillation no longer present Myocardial infarct finding still present Electronically Signed On 04-09-23 16:37:14 CDT by Flaco Dorman
[2023-04-09] MEDS: CALCIUM CARBONATE CHEW 500MG TAB PO SCH (17:27)
--- NOTE | 2023-04-09 19:37 | CON ---
Date of Consultation: 04/09/2023 Reason For Consultation: CHF. History Of Present Illness: 82-year-old male, history of diastolic heart failure, diabetes, hyperten bradley, dyslipidemia, presented to emergency room with fever and shortness of breath. Does not have an y orthopnea or significant lower extremity edema, but he does have mild orthopnea. Denies having any chest pain. Past Medical History: As outlined above in the HPI. Medications: Refer to reconciliation sheet for detailed list. Allergies: NO KNOWN DRUG ALLERGIES. Family History: No premature coronary artery disease or cancer. Social History: He does not smoke or drink. Does not use any drugs. Review of Systems: All systems were reviewed and they were negative except what mentioned in HPI. Physical Examination: Vital Signs: Reviewed. Head and Neck: Pupils are equal, reactive to light. Intact eye movements. No cervical lymphadenopa thy. Neck is supple. Thyroid is not enlarged. Lungs: Clear to auscultation bilaterally. No rhonchi, wheezing, or crackles. No accessory muscle u se. Heart: Irregular. No extra sounds. Abdomen: Soft, nontender. Bowel sounds positive. No organomegaly. No masses or hernia. No rigidi ty or rebound. Extremities: No clubbing or cyanosis. Trace edema. Neurologic: Alert, awake, oriented x3. No acute focal deficits noted. Investigations: BUN 27, creatinine 1.57. Troponin 1175. NT-proBNP is 20,389, and the chest x-ray s howed pulmonary vascular congestion. Assessment And Plan: 1.Shortness of breath. Known history of diastolic heart failure. At this point, he does not look s everely fluid overloaded. Medically, he is on Lasix. Carefully monitor BUN, creatinine, and electro lytes and his echo was done on February 07, 2023, about 2 months ago and it was normal ejection fraction , but he has severe diastolic dysfunction. So diuresis is appropriate at this point and carefully mo nitor electrolytes and kidney function. 2.Elevated troponin. There is no chest pain. I will obtain Lexiscan nuclear stress test on him to further evaluate, and in the interim, baby aspirin is recommended. 3.Dyslipidemia. Continue statin. SR/MODL Voice ID: [id number] Report ID: [id number]
[2023-04-09] MEDS ORDERED: CEFEPIME 1 GM in NA CHLORIDE 0.9% 100 ML IV SCH (21:00)
[2023-04-09] MEDS ORDERED: ROSUVASTATIN 10 MG TAB PO SCH (21:00)
[2023-04-09] MEDS ORDERED: HOME MED 1 EA UNK (Lovastatin [Lovastatin] 20 MG Tablet) PO SCH (21:00)
[2023-04-10 03:08] LABS: Absolute Lymphocytes (CBC) 1.5 K/uL (0.7-4.9); Hematocrit 22.3 % (39.6-49.0); Lymphocytes % 12.7 % (15.3-44.8); MCV 95.4 fL (80-100); MPV 9.6 fL (7.6-11.3); Platelets 75 thou/uL (152-406); RBC Red Blood Cell Count 2.34 M/uL (4.33-5.43)
[2023-04-10 03:28] LABS: Albumin 2.4 g/dL (3.4-5.0); Bilirubin Total 0.7 mg/dL (0.2-1.0); Magnesium 1.9 mg/dL (1.6-2.4); Potassium 3.5 mEq/L (3.5-5.1); Protein, Total 6.3 g/dL (6.4-8.2)
[2023-04-10] MEDS: DOXYCYCLINE 100 MG in NA CHLORIDE 0.9% 100 ML IVPB SCH (04:43)
[2023-04-10] MEDS: CEFEPIME 2 GM in NA CHLORIDE 0.9% 100 ML IV SCH (08:09)
[2023-04-10] MEDS: SPIRONOLACTONE 25 MG TABLET PO SCH (08:09)
[2023-04-10] MEDS: CALCIUM CARBONATE CHEW 500MG TAB PO SCH (08:09)
[2023-04-10] MEDS: FUROSEMIDE 40 MG/4 ML VIAL IV SCH (08:10)
[2023-04-10 08:51] VITALS: O2SAT 96
[2023-04-10] MEDS ORDERED: Enoxaparin 120 MG/0.8 ML SYR SQ SCH (09:00)
[2023-04-10] MEDS ORDERED: ASPIRIN 81 MG CHEWABLE TABLET PO SCH (09:00)
[2023-04-10] MEDS ORDERED: POTASSIUM CL SA 10 MEQ TAB PO ONE (09:00)
[2023-04-10] MEDS ORDERED: FUROSEMIDE 40 MG TABLET PO SCH (09:00)
[2023-04-10 10:37] VITALS: TEMP 97.3
--- NOTE | 2023-04-10 11:46 | P.DS ---
Admission Date: 04/09/23 Discharge Date: 04/10/23 Disposition: ROUTINE DISCHARGE Discharge Condition: SERIOUS Reason for Admission: fever Brief History of Present Illness: Patient is 82 years of age admitted with some fever shortness of breath lower extremity edema Hospital Course: Was admitted to the hospital was diuresed patient had a STEMI patient refused further evaluation regarding his STEMI EKG shows lateral infarct age undetermined the time of discharge he was doing well he refused to have a work- up done here to follow-up with his own cardiology was feeling better hemodynamically stable no chest pain continue with spironolactone and Lasix patient has cirrhosis of the liver he is seeing a liver specialist renal function had improved patient also mildly anemic white count is declined cultures all negative oxygenation satisfactory hemodynamically stable no chest pain had lower extremity edema Vital Signs/Physical Exam: Temp Pulse Resp BP Pulse Ox 97.3 F 67 18 99/56 L 97 04/10/23 08:00 04/10/23 08:00 04/10/23 08:00 04/10/23 08:00 04/10/23 08:00 Laboratory Data at Discharge: WBC 11.60 thou/uL (4.3-10.9) H 04/10/23 02:37 Hgb 7.6 g/dL (13.6-17.9) L 04/10/23 02:37 Hct 22.3 % (39.6-49.0) L 04/10/23 02:37 Plt Count 75 thou/uL (152-406) L 04/10/23 02:37 PT 16.2 SECONDS (9.5-12.5) H 04/08/23 23:25 INR 1.47 04/08/23 23:25 APTT 31.6 SECONDS (24.3-36.9) 04/08/23 23:25 Sodium 133 mEq/L (136-145) L D 04/10/23 02:37 Potassium 3.5 mEq/L (3.5-5.1) D 04/10/23 02:37 BUN 30 mg/dL (7-18) H 04/10/23 02:37 Creatinine 1.41 mg/dL (0.70-1.30) H 04/10/23 02:37 Glucose 149 mg/dL (74-106) H 04/10/23 02:37 Magnesium 1.9 mg/dL (1.6-2.4) 04/10/23 02:37 Total Bilirubin 0.7 mg/dL (0.2-1.0) 04/10/23 02:37 AST 15 U/L (15-37) 04/10/23 02:37 ALT 16 U/L (16-61) 04/10/23 02:37 Alkaline Phosphatase 98 U/L (45-117) 04/10/23 02:37 Home Medications: Furosemide [Lasix*] 20 mg PO DAILY #30 tab 02/11/23 Midodrine HCl [Proamatine*] 5 mg PO BID #60 tab 03/11/23 Clopidogrel Bisulfate [Plavix] 75 mg PO BEDTIME 04/09/23 Cyanocobalamin [Vitamin B-12] 1,000 mcg PO SEECOM 04/09/23 Metformin ER [Glucophage ER] 500 mg PO DAILY 04/09/23 Rosuvastatin [Crestor] 10 mg PO BEDTIME 04/09/23 Sildenafil Citrate [Revatio] 20 mg PO BID 04/09/23 Spironolactone [Aldactone*] 25 mg PO DAILY 30 Days #30 tab 04/10/23 New Medications: Spironolactone [Aldactone*] 25 mg PO DAILY 30 Days #30 tab Physician Discharge Instructions: Patient to follow-up with cardiology Diet: Regular
[2023-04-10 18:45] VITALS: BP 123/57
== END 2023-04-10 12:30 | disposition left against medical advice (07) | DRG 280 ==
LOC: ER 22:39 → ERHOLD 04-09 01:04 → 3RD-ICU 04-09 03:27 → 2ND 04-09 20:11
PROVIDERS: ADMIT Internal Medicine Sleep Medicine; ATTEND Internal Medicine Sleep Medicine
DX: I13.0 Hypertensive heart and chronic kidney disease with heart failure and stage 1 through stage 4 chronic kidney disease, or unspecified chronic kidney disease (principal); I50.33 Acute on chronic diastolic (congestive) heart failure; I21.3 ST elevation (STEMI) myocardial infarction of unspecified site; N17.9 Acute kidney failure, unspecified; N18.9 Chronic kidney disease, unspecified; E11.22 Type 2 diabetes mellitus with diabetic chronic kidney disease; D63.1 Anemia in chronic kidney disease; E78.00 Pure hypercholesterolemia, unspecified; K74.60 Unspecified cirrhosis of liver; C44.90 Unspecified malignant neoplasm of skin, unspecified; K59.00 Constipation, unspecified; I95.9 Hypotension, unspecified; I27.20 Pulmonary hypertension, unspecified; D69.6 Thrombocytopenia, unspecified; D72.829 Elevated white blood cell count, unspecified; R77.8 Other specified abnormalities of plasma proteins; Z60.2 Problems related to living alone; Z79.84 Long term (current) use of oral hypoglycemic drugs; Z79.02 Long term (current) use of antithrombotics/antiplatelets; Z79.899 Other long term (current) drug therapy; Z91.040 Latex allergy status; Z20.822 Contact with and (suspected) exposure to COVID-19
CPT/HCPCS: 36415; 71045; 74176; 80053; 83605; 83735; 83880; 84484; 85025; 85610; 85730; 87040; 87635; 87804; 93005; 93970; 96365; 96375; 97110; 97161; 97530; 99285; J0692; J1650; J1940; J2405; J7050